=== PATIENT | female | born 1975 | race Caucasian/White ===

== ENCOUNTER 2024-01-01 13:25 | Outpatient (REF) | payer MEDICAID, SELFPAY ==
--- NOTE | ~2024-01-01 | MM_ITS ---
EXAMINATION: MM SCREENING DIGITAL BREAST TOMOSYNTHESIS, BILATERAL CLINICAL INFORMATION: Screening. Asymptomatic. COMPARISON: Mammography: This study is compared with prior exams dating back to 2019. TECHNIQUE: Digital breast tomosynthesis is performed in both the craniocaudal and mediolateral oblique views along with computer-aided detection (CAD). Synthesized 2D images are generated from the tomosynthesis. FINDINGS: There are scattered areas of fibroglandular density (ACR BI-RADS breast composition Category b). There are no significant masses, abnormal calcifications, or other abnormalities. Benign calcifications are present in each breast. MM/MM tomosynthesis screening BI IMPRESSION: No mammographic evidence of malignancy. ASSESSMENT: BI-RADS BI-RADS 2 - Benign Findings RECOMMENDATION: Routine annual mammography screening. 1 year F/U This examination should not preclude the clinical evaluation of a suspicious palpable abnormality. This patient's information was entered into a reminder system with a target due date for their next mammogram. Electronically signed by: Kayla Bales MD 01/28/2024 07:45 AM EDT
== END 2024-01-01 13:26 | disposition home or self-care (01) ==
LOC: HO.MAMMO 13:25
PROVIDERS: PCP Internal Medicine; Visit Provider Internal Medicine
DX: Z12.31 Encounter for screening mammogram for malignant neoplasm of breast (principal)
CPT/HCPCS: 77063; 77067

== ENCOUNTER → 2024-01-01 14:00 | Outpatient (BNV) | payer MEDICAID, SELFPAY | PROVIDERS: PCP Internal Medicine; Visit Provider Radiology Diagnostic Radiology | DX: Z12.31 Encounter for screening mammogram for malignant neoplasm of breast (principal) | CPT/HCPCS: 77063; 77067 ==

== ENCOUNTER 2024-01-09 08:20 | Outpatient (REF) | payer MEDICAID, SELFPAY ==
[2024-01-09 14:16] LABS: MANUAL DIFF FLAG NO
[2024-01-09 14:26] LABS: Basophils Absolute Auto 0.1 X10*3/uL (0.0-0.2); Basophils Percent Auto 0.7 % (0-2); Eosinophils Absolute Auto 0.2 X10*3/uL (0.0-0.4); Eosinophils Percent Auto 2.2 % (0-4); Hemoglobin 15.5 g/dl (12.0-16.0); Imm Gran Abs Auto 0.05 X10*3/uL (0.00-0.03); Imm Gran Pct Auto 0.5 % (0.0-0.4); Lymphocytes Absolute Auto 2.3 X10*3/uL (1.2-4.9); Lymphocytes Percent Auto 22.8 % (20-40); Mean Corpuscular HGB Conc 33.7 g/dl (31.0-35.0); Mean Corpuscular Volume 98.1 fL (80.0-98.0); Mean Platelet Volume 9.7 fL (9.4-12.3); Monocytes Absolute Auto 0.6 X10*3/uL (0.1-1.2); Monocytes Percent Auto 6.3 % (2-11); Neutrophils Absolute Auto 6.9 x10*3/uL (2.0-8.3); Neutrophils Percent Auto 67.5 % (45-73); Platelet Count 256 X10*3/uL (160-400); Red Blood Count 4.69 X10*6/uL (4.20-5.50); White Blood Count 10.2 X10*3/uL (4.8-10.8)
[2024-01-09 15:02] LABS: Alanine Aminotransferase 65 U/L (0-31); Albumin Level 4.3 g/dL (3.5-5.0); Alkaline Phosphatase 78 U/L (39-117); Anion Gap 14 (12-20); Aspartate Amino Transferase 25 U/L (5-31); Bilirubin Total 0.4 mg/dL (0.0-1.0); Blood Urea Nitrogen 13 mg/dL (9-16); Calcium 9.6 mg/dL (8.4-10.2); Carbon Dioxide 25 mmol/L (22-29); Chloride 104 mmol/L (96-108); Cholesterol 190 mg/dL (<200); Estimated Glomerular Filt Rate > 60; Glucose Random 133 mg/dL (60-115); HDL Cholesterol 30 mg/dL (>40); LDL Cholesterol Calculated 95 mg/dL (<100); Potassium 5.3 mmol/L (3.3-5.1); Sodium 138 mmol/L (135-145); Total Protein 7.2 g/dL (6.5-8.0); Triglycerides 328 mg/dL (<150)
[2024-01-09 15:06] LABS: Creatinine Urine 95.66 mg/dL; Microalbum/Creatinine Ratio Ur 10.4 ug/mg cr (<30)
[2024-01-09 15:22] LABS: TSH reflex Free T4 2.34 uIU/mL (0.32-4.0)
[2024-01-10 03:58] LABS: HIV AB/AG Nonreactive (Nonreactive); HIV Num 1 0.05 S/CO (0.00-0.99); ~HepC Num1 0.12 S/CO (0.00-0.79); ~Hepatitis C Antibody Nonreactive (Nonreactive)
== END 2024-01-09 08:21 | disposition home or self-care (01) ==
LOC: HO.CHCLDS 08:20
PROVIDERS: Visit Provider Internal Medicine
DX: E11.29 Type 2 diabetes mellitus with other diabetic kidney complication (principal); R80.9 Proteinuria, unspecified
CPT/HCPCS: 36415; 80053; 80061; 82043; 82570; 84443; 85025; 86803; 87389

== ENCOUNTER 2024-04-03 14:23 | Outpatient (REF) | payer MEDICAID, SELFPAY | END 2024-04-03 14:24 | disposition home or self-care (01) | LOC: HO.HMGCX 14:23 | PROVIDERS: PCP Internal Medicine; Visit Provider Internal Medicine | DX: M25.562 Pain in left knee (principal); G89.29 Other chronic pain | CPT/HCPCS: 73564 ==

== ENCOUNTER 2024-04-07 14:26 | Outpatient (REF) | payer MEDICAID, SELFPAY | END 2024-04-07 14:27 | disposition home or self-care (01) | LOC: HO.HHCLNP 14:26 | PROVIDERS: Visit Provider Family Medicine | DX: Z12.4 Encounter for screening for malignant neoplasm of cervix (principal) | CPT/HCPCS: 87624; 88175 ==

== ENCOUNTER 2024-04-29 14:16 | Outpatient (REF) | payer MEDICAID, SELFPAY ==
[2024-04-29 14:00] LABS: HPV 16,18/45 See PAP report
== END 2024-04-29 14:17 | disposition home or self-care (01) ==
LOC: HO.HHCLNP 14:16
PROVIDERS: Visit Provider Family Medicine
DX: Z13.89 Encounter for screening for other disorder (principal)
CPT/HCPCS: 87624

== ENCOUNTER 2024-07-27 14:21 | Outpatient (REF) | payer MEDICAID, SELFPAY ==
--- OUTSIDE RECORDS SUMMARY | 2024-07-27 17:07 | XMS_ITS | Encounter Summary ---
Author Organization [employer] Address [address] [facility] 7 [place] [address] Care Team Providers Care Ukrainian Folk Arts Instructor Name Role Phone Jordi Gallo Unavailable Elicia Powell MD Primary Care Provider [phone] Jovanny Mcduffie MD Primary Care Prov ider Encounter Details Date Type Department Care Team (Latest Contact Info) Description 01/26/2020 Abstract [facility] Dental, Provider, DDS Social History Tobacco Use Types Packs/Day Years Used Date Smoking Tobacco: Never Assessed Comments Unknown Sex and Gender Information Value Date Recorded Sex Assigned at Female 05/30/2022 1:58 PM EST Legal Sex Female 8:38 PM EST Gender Identity Female 04/06/2022 8:38 PM EST Sexual Orientation Straight 04/06/2022 8: 38 PM EST documented as of this encounter Plan of Treatment Upcoming Encounters Date Type Department Care Team (Late st Contact Info) Description 11/02/2024 12:30 PM EDT Office Visit [facility] [address] [place] [phone] Bonnie Naik [address] [place] [address] documented as of this encounter Visit Diagnoses Not on filedocumented in this encounter Care Teams Ukrainian Folk Arts Instructor Relationship Specialty Start Date End Date Elicia Powell MD [address] [place] [address] PCP - General Family Medicine 01/02/23 12/03/23 Jovanny Mcduffie MD [address] [place] [address] PCP - General Internal Medicine 12/09/23 Jordi Gallo LLD [address] [place] [address] Dentist Dental Narcotics Investigator 01/02/23 documented as of this encounter
--- OUTSIDE RECORDS SUMMARY | 2024-07-27 17:07 | XMS_ITS | Encounter Summary ---
Author Organization [employer] Address [address] [facility] [address] [place] [address] Care Team Providers Care Nurse'S Companion Name Role Phone Jordi Gallo LLJuice Unavailable Jovanny Mcduffie MD Primary Care Prov ider Encounter Details Date Type Department Care Team (Latest Contact Info) Description 07/27/2024 Travel Social History Tobacco Use Types Packs/Day Years Used Date Smoking Tobacco: Every Day Cigarettes 0.5 38.6 Started: 12/06/1985 Smokeless Tobacco: Never Alcohol Use Standard Drinks/Week Comments Never 0 (1 standard drink = 0.6 oz pur e alcohol) Housing Stability Answer Date Recorded What is your housing situation today? I have danielle stacia 12/25/[address] you li ve. Do you have problems with any of the following? None of the above 12/25/2023 Food Insecurity Answer Date Recorded Within the past 12 months, y ou worried that your food would run out before you got money to buy more: Never True 12/25/2023 Within the past 12 months,th e food you bought just didn't last and you didn't have enough money to get more: Never True Transportation Answer Date Recorded In the past 12 months, has l ack of transportation kept you from medical appts, meetings, work or from getting things needed for daily living? No 12/25/2023 Utilities Answer Date Recorded In the past 12 months, has t he electric, gas, oil or water company threatened to shut off services in your home? No 12/25/2023 Depression Answer Date Recorded Patient Health Questionnaire-2 Score 0 01/03/2024 Internet Access Answer Date Recorded Internet Access Q1 Yes 01/27/2024 Internet Access Q2 Not on file 01/27/2024 Comments Unknown Sex and Gender Information Value [...] PM EDT Office Visit [facility] [address] [place] [phone] Bonnie Naik [address] [place] [address] documented as of this encounter Visit Diagnoses Not on filedocumented in this encounter Care Teams Nurse'S Companion Relationship Specialty Start Date End Date Jovanny Mcduffie MD [address] [place] [address] PCP - General Internal Medicine 12/09/23 Jordi Gallo LLD [address] [place] [address] Dentist Dental Truant Officer 01/02/23 documented as of this encounter
--- OUTSIDE RECORDS SUMMARY | 2024-07-27 17:07 | XMS_ITS | Encounter Summary ---
Author Organization [employer] Address 75 [facility] 7 [place] [address] Care Team Providers Care Foot Miter Operator Name Role Phone Jordi Gallo Unavailable Jovanny Mcduffie MD Primary Care Prov ider Reason for Visit * Reason Onset Date Comments Medication Question 07/10/2024 Encounter Details Date Type Department Care Team ([facility] st Contact Info) Description 07/10/2024 Telephone [facility] MEDICINE [address] [place] [address] Jovanny Mcduffie MD [address] [place], [place] [phone] Medication Question Social History Tobacco Use Types Packs/Day Years Used Date Smoking Tobacco: Every Day Cigarettes 0.5 38.6 Started: 12/06/1985 Smokeless Tobacco: Never Alcohol Use Standard Drinks/Week Comments Never 0 (1 standard drink = 0.6 oz pur e alcohol) Housing Stability Answer Date Recorded What is your housing situation today? I have danielle palomo 12/25/[address] you li [...] PM EST documented as of this encounter Miscellaneous Notes * Telephone Encounter - Sangita Chang - 07/10/2024 9:03 AM EST Tc from pt requesting a call back to clarify if she will need blood work regarding zepbound and diabetes. [phone] documented in this encounter Plan of Treatment Upcoming Encounters Date Type Department Care Team (Late st Contact Info) Description 11/02/2024 12:30 PM EDT Office Visit [facility] [address] [place] [phone] Bonnie Naik [address] [place] [address] documented as of this encounter Visit Diagnoses Not on filedocumented in this encounter Care Teams Foot Miter Operator Relationship Specialty Start Date End Date Jovanny Mcduffie MD [address] [place] [address] PCP - General Internal Medicine 12/09/23 Jordi Gallo LLD [address] [place] [address] Dentist Dental Rural Mail Contractor 01/02/23 documented as of this encounter
--- OUTSIDE RECORDS SUMMARY | 2024-07-27 17:07 | XMS_ITS | Encounter Summary ---
Author Organization [employer] Address 75 [facility] 7 [place] [address] Care Team Providers Care Commercial Sewing Instructor Name Role Phone Jordi Gallo Unavailable Jovanny Mcduffie MD Primary Care Prov ider Reason for Visit * Reason Onset Date Comments Medication Question 07/17/2024 Encounter Details Date Type Department Care Team ([facility] st Contact Info) Description 07/17/2024 Telephone [facility] MED[facility]INE [address] [place] [address] Jovanny Mcduffie MD [address] [place], [place] [phone] Medication Question Social History Tobacco Use Types [...] encounter Miscellaneous Notes * Telephone Encounter - Edmund Martinez - 07/17/2024 8:49 AM EST Tc from pt requesting a call back to discuss medication Tirzepatide-Weight Management (Zepbound) 5 MG/0.5ML solution. Pt states would like to know if they ae going to Increase her Dose or if she is suppose to stay on the Same one. Contact pt at [phone] documented in this encounter Plan of Treatment Upcoming Encounters Date Type Department Care Team (Late st Contact Info) Description 11/02/2024 12:30 PM EDT Office Visit [facility] [address] [place] [phone] Bonnie Naik [address] [place] [address] documented as of this encounter Visit Diagnoses Not on filedocumented in this encounter Care Teams Commercial Sewing Instructor Relationship Specialty Start Date End Date Jovanny Mcduffie MD [address] [place] [address] PCP - General Internal Medicine 12/09/23 Jordi Gallo LLD [address] [place] [address] Dentist Dental Diesel Engine Mechanic 01/02/23 documented as of this encounter
--- OUTSIDE RECORDS SUMMARY | 2024-07-27 17:07 | XMS_ITS | Encounter Summary ---
Author Organization [employer] Address 75 [facility] 7 [place] [address] Care Team Providers Care Lead Burner Helper Name Role Phone Jordi Gallo Unavailable Elicia Powell MD Primary Care Provider [phone] Jovanny Mcduffie MD Primary Care Prov ider Encounter Details Date Type Department Care Team (Latest Contact Info) Description 09/21/2021 Abstract [facility] Dental, Provider, DDS Social [...] EDT Office Visit [facility] [address] [place] [phone] Bonnie Naik [address] [place] [address] documented as of this encounter Visit Diagnoses Not on filedocumented in this encounter Care Teams Lead Burner Helper Relationship Specialty Start Date End Date Elicia Powell MD [address] [place] [address] PCP - General Family Medicine 01/02/23 12/03/23 Jovanny Mcduffie MD [address] [place] [address] PCP - General Internal Medicine 12/09/23 Jordi Gallo LLD [address] [place] [address] Dentist Dental Electrolytic De Scaler 01/02/23 documented as of this encounter
--- OUTSIDE RECORDS SUMMARY | 2024-07-27 17:07 | XMS_ITS | Encounter Summary ---
Author Organization [employer] Address 75 [facility] 7 [place] [address] Care Team Providers Care Pasting Inspector Name Role Phone Jordi Gallo Unavailable Elicia Powell MD Primary Care Provider [phone] Jovanny Mcduffie MD Primary Care Prov ider Encounter Details Date Type Department Care Team (Latest Contact Info) Description 07/01/2018 Abstract [facility] Dental, Provider, DDS Social [...] EDT Office Visit [facility] [address] [place] [phone] Bonnie Naik [address] [place] [address] documented as of this encounter Visit Diagnoses Not on filedocumented in this encounter Care Teams Pasting Inspector Relationship Specialty Start Date End Date Elicia Powell MD [address] [place] [address] PCP - General Family Medicine 01/02/23 12/03/23 Jovanny Mcduffie MD [address] [place] [address] PCP - General Internal Medicine 12/09/23 Jordi Gallo LLD [address] [place] [address] Dentist Dental Costume Rental Clerk 01/02/23 documented as of this encounter
--- OUTSIDE RECORDS SUMMARY | 2024-07-27 17:07 | XMS_ITS | Encounter Summary ---
Author Organization [email or web address] Address 75 [facility] 7 [place] [address] Care Team Providers Care Carbon Lamp Cleaner Name Role Phone Jordi Gallo Unavailable Elicia Powell MD Primary Care Provider [phone] Jovanny Mcduffie MD Primary Care Prov ider Encounter Details Date Type Department Care Team (Latest Contact Info) Description 09/05/2020 Abstract [facility] Dental, Provider, DDS Social [...] EDT Office Visit [facility] [address] [place] [phone] Bonnie Naik [address] [place] [address] documented as of this encounter Visit Diagnoses Not on filedocumented in this encounter Care Teams Carbon Lamp Cleaner Relationship Specialty Start Date End Date Elicia Powell MD [address] [place] [address] PCP - General Family Medicine 01/02/23 12/03/23 Jovanny Mcduffie MD [address] [place] [address] PCP - General Internal Medicine 12/09/23 Jordi Gallo LLD [address] [place] [address] Dentist Dental Slicing Machine Operator 01/02/23 documented as of this encounter
--- OUTSIDE RECORDS SUMMARY | 2024-07-27 17:07 | XMS_ITS | Encounter Summary ---
Author Organization [employer] Address 75 [facility] 7 [place] [address] Care Team Providers Care Certified Credit Counselor Name Role Phone Jordi Gallo Unavailable Jovanny Mcduffie MD Primary Care Prov ider Reason for Visit * Reason Onset Date Comments Nurse Triage 07/27/2024 Encounter Details Date Type Department Care Team ([facility] st Contact Info) Description 07/27/2024 Telephone [facility] MEDICINE [address] [place] [address] Jovanny Mcduffie MD [address] [place], [place] [phone] Nurse Triage Social History Tobacco Use Types Packs/Day Years [...] encounter Miscellaneous Notes * Telephone Encounter - Rosalina Diaz RN - 07/27/2024 11:38 AM EST called pt to triage, spoke to pt. pt states several days duration of mid back pain, occasionally radiating into the right shoulder. pt also states mild burning when finishing urinating but denies fever, severe pain, strong odor, blood, or other associated symptoms. advised no available appt today or tomorrow and advised walk in center in the [facility], also declined. given TC appt with PCP to discuss and arrange for U/A as needed. advised home care: rest, fluids, monitor temperature, and call back ifworsening or new concerns. pt understands and agrees with plan. insurance verified. Multiple (2) protocols were used on this call. Disposition for Call: See in Office or Video Visit Today Protocol Used: Urinary Symptoms (Adult) Protocol-Based Disposition: See in Office or Video Visit Today Video visit offer not recorded Positive Triage Question: * Side (flank) or lower back pain present * All higher-acuity triage questions were negative Care Advice Discussed: * Reasons To Call Back - Fever occurs - Pain or burning with urination - Unable to urinate and bladder feels full - You become worse Protocol Used: Back Pain (Adult) Protocol-Based Disposition: See in Office or Video Visit within 3 Days Video visit offer not recorded Positive Triage Question: * Patient wants to be seen * All higher-acuity triage questions were negative Care Advice Discussed: * Reassurance and Education - Back Pain * Cold or Heat * Sleep * Continue Activity * Pain Medicines * Reasons To Call Back - Fever occurs - Numbness or weakness occurs - Loss of control of your bladder or bowel - Severe pain not better after taking pain medicines - Pain begins to shoot into the leg - Pain lasts over 2 weeks - Pain becomes worse - You become worse * Telephone Encounter - Dasha Alfred - 07/27/2024 10:25 AM EST Tc from pt returning call. * Telephone Encounter - Edmund Martinez - 07/27/2024 9:14 AM EST Symptoms: Urination Pain, Back Pain - Not From Injury Outcome: Schedule a same-day appointment or talk to a nurse or provider today Reason: Caller denied all higher acuity questions The caller accepted this outcome. Contact pt at [phone] documented in this encounter Plan of Treatment Upcoming Encounters Date Type Department Care Team ([facility] st Contact Info) Description 11/02/2024 12:30 PM EDT Office Visit [facility] [address] [place] [phone] Bonnie Naik [address] [place] [address] documented as of this encounter Visit Diagnoses Not on filedocumented in this encounter Care Teams Certified Credit Counselor Relationship Specialty Start Date End Date Jovanny Mcduffie MD [address] [place] [address] PCP - General Internal Medicine 12/09/23 Jordi Gallo LLD [address] [place] [address] Dentist Dental Statistical Reporting Analyst 01/02/23 documented as of this encounter
--- OUTSIDE RECORDS SUMMARY | 2024-07-27 17:07 | XMS_ITS | Clinical Summary ---
Author Organization [employer] Address [address] [facility] [place] [address] [place] [address] Care Team Providers Care Rn Occupational Health Name Role Phone Jordi Gallo LLD Unavailable Jovanny Mcduffie MD Primary Care Prov ider Allergies No known active allergies Medications ammonium lactate (Amlactin) 12 % cream APPLY TOPICALLY EVERY DAY TO THE FEET 3 Active aspirin 81 MG EC tablet Take 81 mg by mouth in the morning. Active latanoprost (Xalatan) 0.005 % ophthalmic solution INSTILL 1 DROP BOTH EYES EVERY EVENING 3 Active Blood Pressure kit 1 kit Once per day. 1 kit 4 Active FreeStyle lancets 1 each by Other route Once per day. 100 each 4 12/07/19 25 Active FREESTYLE LITE test strip Blood glucose monitoring, check glucose daily 100 each 4 12/07/19 25 Active Alcohol Swabs (Alcohol Pads) 70 % pads 1 Units Once per day. 100 each 4 Active lisinopril 10 MG tablet Take 1 tablet (10 mg) by mouth Once per day. 90 tablet 3 4 01/03/20 25 Active atorvastatin (Lipitor) 80 MG tablet Take 1 tablet (80 mg) by mouth Once per day. 90 tablet 3 4 03/23/20 25 Active Tirzepatide-Oli ght Management (Zepbound) 5 MG/0.5ML solution Inject 5 mg under the skin 1 (one) time per week. Do not start before May 27, 2024. 2 mL 3 5 Active Semaglutide-Oli ght Management (Wegovy) 0.5 MG/0.5ML solution auto-injector Inject 0.5 mg under the skin 1 (one) time per week. 3 mL 4 07/28/19 25 Discontinu ed(Therapy completed) Semaglutide-Oli ght Management (Wegovy) 1 MG/0.5ML solution auto-injector Inject 0.5 mL (1 mg) under the skin 1 (one) time per week. 2 mL 4 07/28/19 25 Discontinu ed(Therapy completed) Semaglutide-Oli ght Management (Wegovy) 1.7 MG/0.75ML solution auto-injector Inject 0.75 mL (1.7 mg) under the skin 1 (one) time per week. 2 mL 4 07/28/19 25 Discontinu ed(Therapy completed) Active Problems Problem Noted Date Diagnosed Date Cervical cancer screening 04/07/2024 Assessment & Plan (04/07/2024 11:21 AM EST): 49 y.o. here for cervical cancer screening. Will continue monitoring following ASCCP guidelines. Pt declined influenza and Covid vaccines today. Primary hypertension 01/16/2024 Assessment & Plan (05/18/2024 9:41 AM EST): Controlled, continue low sodium diet and exercise as tolerated, keep bp log, follow up in 3 months Assessment & Plan (03/23/2024 10:54 AM EDT): Controlled, continue lisinopril 10mg, keep low sodium diet and exercise as tolerated Assessment & Plan (01/29/2024 9:48 PM EDT): Controlled on lisinopril, no changes will be made, continue low sodium diet, keep bp log, follow up in 4 months Assessment & Plan (01/16/2024 11:26 PM EDT): Will start on lisinopril, encouraged low sodium diet and exercise as tolerated, keep bp log, follow up in 1 month Chronic pain of left knee 01/16/2024 Assessment & Plan (01/16/2024 11:27 PM EDT): Will send a order for xray to check for OA Encounter for screening mamm ogram for malignant neoplasm of breast 12/07/2023 Assessment & Plan (12/07/2023 10:39 AM EDT): Will send mammogram for screenbing Screening for colon cancer 12/07/2023 Assessment & Plan (12/07/2023 10:54 AM EDT): Will send cologuard, risk vs benefits discussed Encounter for medical examination to establish c are 12/07/2023 Assessment & Plan (12/07/2023 11:13 AM EDT): Last PCP follow up 6 months ago, in [facility] No er visit on the past year Only hospitalization was on 1992 for c section Pmhx: DM, microalbuminuria, hyperlipidemia, obesity, hydradenitis suppurativa Pshx: csection 1992 All: - Meds: glipizide 10mg daily, doxyxyxline 100mg daily, lisinopril 2.5mg, atorvastatin 40mg, asa 81mg A1 Will refer for mammogram, eye exam, send cologuard, schedule pap smear Type 2 diabetes mellitus with microalbuminuria 0 07/04/2023 Assessment & Plan (07/27/2024 1:45 PM EST): No reported episode of hypoglycemia, will order new blood work for guidance of therapy Assessment & Plan (05/18/2024 9:42 AM EST): On wegovy, no reported hypoglycemia, continue low carb/no sugar diet, exercise as tolerated, will increase wegovy dose, she will be changed to zepbound after May 27 Assessment & Plan (03/23/2024 10:54 AM EDT): Will increase wegovy to 0.5mg, she tolerated initial dose, told to discontinue glipizide to avoid hypoglycemia Assessment & Plan (01/29/2024 9:49 PM EDT): Patient has not started wegovy, pending aproval, continue glipizide, plan is to increase wegovy and discontinue glipizide and leave her on single therapy with wegovy Assessment & Plan (01/16/2024 11:23 PM EDT): Patient having fungal infection related to jardiance, will stop medication, continue glipizode and wegovy, follow up in 1 month Assessment & Plan (12/07/2023 10:57 AM EDT): Patient on glipizide, will add jardiance for renal protection, also will add wegovy for controlling her DM and also adressing her weight issue, plan is to be on jardiance/wegovy and stop glipizide Secondary female infertility 12/12/2020 Overview (04/07/2024): Last Assessment & Plan: Both Ana and her partner have had children with other people in the past but not each other. They have been together for almost 2 decades. She reports that her periods are starting to get a little funny and possible that she is entering perimenopause but if there is any remaining chance of with this partner she would like to seize it. She reports that a previous work-up for infertility was normal and that her partner is supposed to IVF but not to less invasive fertility treatments. I believe she would benefit from a hysterosalpingogram and perhaps judicious use of fertility boosting oral medications and I am referring her to obstetrics to pursue this. Hyperlipidemia 09/15/2018 Overview (12/07/2023): Last Assessment & Plan: Previously stable on a statin but needs monitoring. Assessment & Plan (01/29/2024 9:50 PM EDT): Ldl not at target, will increase atorvastatin to 80mg, follow up in 3-4 months Assessment & Plan (12/07/2023 10:58 AM EDT): On atorvastatin 40mg, ldl target <70, will follow up Smoker 09/15/2018 Hidradenitis suppurativa 10/23/2017 Overview (12/07/2023): Last Assessment & Plan: This likely represents a hidradenitis lesion. Is no evidence of infection. Pain is getting much better and at this point I really recommend any treatment. If she continues to have pain from the lesion, she could be referred to surgery for excision. Assessment & Plan (01/16/2024 11:24 PM EDT): Will refer to dermatology for evalaution and treatment Assessment & Plan (12/07/2023 10:57 AM EDT): On doxycycline, no changes, will reevaluate in office Obesity 06/05/2017 Resolved Problems Problem Noted Date Diagnosed Date Resolved Date Type 2 diabetes mellitus wit h diabetic neuropathy, without long-term current use of insulin 05/05/2019 04/07/2024 Overview (04/07/2024): Last Assessment & Plan: A1C has been well controlled recently so discontinuing Jardiance is probably fine but I would like an up to date A1C. Unfortunately for logistical reasons I didn't have an updated number available while we met so we agreed to communicate about this via portal. Her current insurance will not cover semaglutide at all as far as I can tell but we can certainly try again when she has new coverage. Discussed that she has now had two separate urines with mild microalbuminuria suggestive of mild diabetic kidney disease. GFR is happily normal. Recommend low dose PATRICE-I for renal protection. Reviewed R&B including but not limited to dry cough, angioedema, hyperkalemia. Reviewed lipid panel; LDL at goal, HDL too low - recommend exercise. TG also not at goal. Ana would like to address this with dietary changes. Handout provided. Encounters Date Type Department Care Team Description 07/27/2024 1:15 PM EST Telemedicine [facility] [address] [place] [address] Jovanny Mcduffie MD Type 2 diabetes mellitus with microalbuminuria (CMS/HCC) (Primary Dx); Dysuria 07/27/2024 Travel 07/27/2024 Telephone [facility] [address] [place] [phone] Jovanny Mcduffie MD Nurse Triage 07/17/2024 Telephone [facility] [address] [place] [address] Jovanny Mcduffie MD Medication Question 07/10/2024 Telephone [facility] [address] [place] [phone] Joavnny Mcduffie MD Medication Question 05/18/2024 9:30 AM EST Telemedicine [facility] [address] [place] [address] Jovanny Mcduffie MD Primary hypertension (Primary Dx); Type 2 diabetes mellitus with microalbuminuria (CMS/HCC) 05/18/2024 Travel 04/28/2024 10:30 AM EST Office Visit [address] [phone] Bonnie Naik Periodontal disease (Primary Dx) from Last 3 Months Immunizations Name Administration Dates Next Due Hep B, adult 12/26/2012,07/25/2012,06/19/2012 MMR 07/25/2012 Pneumococcal Conjugate PCV 20 05/01/2022 TD (adult), 2 Lf tetanus tox oid, preservative free, adsorbed 06/05/2021 Tdap 05/04/2010 Family History Medical History Relation Name Comments Alcohol abuse Father Diabetes Father Alcohol abuse Mother Relation Name Status Comments Father Mother Social History Tobacco Use Types Packs/Day Years Used Date Smoking Tobacco: Every Day Cigarettes 0.5 38.6 Started: 12/06/1985 Smokeless Tobacco: Never Tobacco Cessation:Ready to Q uit: No; Counseling Given: Not Answered Alcohol Use Standard Drinks/Week Comments Never 0 [...] Orientation Straight 04/06/2022 8: 38 PM EST Last Filed Vital Signs Vital Sign Reading Time Taken Comments Blood Pressure 127/87 05/18/2024 9:25 AM EST Pulse 74 04/28/2024 10:37 AM EST Temperature 36.8 ??C (98.3 ??F) 04/28/2024 10:[address] Respiratory Rate 20 04/07/2024 10:52 AM EST Oxygen Saturation 98% 04/07/2024 10:52 AM EST Inhaled Oxygen Concentration - - Weight 141 kg (311 lb 12.8 oz) 04/07/2024 10:52 AM EST Height 167.6 cm (5' 6 ) 04/07/2024 10:52 AM EST Body Mass Index 50.33 04/07/2024 10:52 AM EST Plan of Treatment Upcoming Encounters Date Type Department Care Team (Late st Contact Info) Description 11/02/2024 12:30 PM EDT Office Visit [facility] [address] [place] [phone] Bonnie Naik [address] [place] [phone] Health Maintenance Due Date Last Done Comments CT Colonography 1975 Colonoscopy 1975 FIT 1975 FOBT 1975 Sigmoidoscopy 1975 Family Planning (PISQ) 1990 Diabetes: Hemoglobin A1C 04/04/2024 024, 12/08/2020, 02/05/2020, Additional history exists Dental X-Ray: Bitewings 08/14/2024 08/14/19 24, 10/01/2022, 03/27/2022, Additional history exists Alcohol/Substance Use Screening 10/15/2024 10/16/2023 Dental Oral Exam 10/28/2024 04/28/2024, , 10/01/2022, Additional history exists Dental Prophylaxis 10/28/2024 04/28/2024, 0 10/16/2023, 04/11/2023, Additional history exists Influenza Vaccine (#1) 2024 Postp oned from 01/26/2024 (Patient Refused) SDOH Screening 12/24/2024 12/25/2023 Depression Screening 01/02/2025 01/03/2024, 01/03/20 24 Diabetes: Foot Exam 01/02/2025 01/03/2024, 01/03/2024, 01/03/2024, Additional history exists Lipid Panel 01/08/2025 01/09/2024 Zoster Vaccines (1 of 2) 2025 Dental X-Ray: Full Mouth 03/28/2025 022, 12/11/2017, 08/27/2014 COVID-19 Vaccine ( season) 2025 03/18/2021, 09/16/2020, 08/24/2020 Postponed from 01/26/2024 (Patient Refused) Tobacco Screening 04/07/2025 04/07/2024 Mammogram 12/31/2025 01/01/2024, 01/26, 07/28/2020, Additional history exists Eye Exam 01/14/2026 01/15/2024, 01/14/2024 Colorectal Cancer Screening 12/19/2026 FIT DNA/Cologuard 12/19/2026 12/20/2023 Cervical Cancer Screening 04/07/2029 HPV/Cotest 04/07/2029 Pap Smear 04/07/2029 04/07/2024 DTaP/Tdap/Td Vaccines (3 - Td or Tdap) 06/05/2031 06/05/2021, 05/04/2010 RSV Patients and Patients Aged 60 years or older (1 - 1-dose 75+ series) 2050 Hepatitis B Vaccines Completed 12/26/2012, 07/25/2012, 06/19/2012 Pneumococcal Vaccine: Pediatrics (0 to 5 Years) and At-Risk Patients (6 to 49) Years) Completed 05/01/2022 HIV Screening Completed 01/09/2024 Hepatitis C Screening Completed 01/09/2024 HIB Vaccines Aged Out No longer eligi ble based on patient's age to complete this topic HPV Vaccines Aged Out No longer eligi ble based on patient's age to complete this topic Hepatitis A Vaccines Aged Out No long er eligible based on patient's age to complete this topic IPV Vaccines Aged Out No longer eligi ble based on patient's age to complete this topic Meningococcal Vaccine Aged Out No [place] hilary eligible based on patient's age to complete this topic RSV under 20 months Aged Out No longe r eligible based on patient's age to complete this topic Rotavirus Vaccines Aged Out No longer eligible based on patient's age to complete this topic Procedures Procedure Name Priority Date/Time Associated Diagnosis Comments PERIODIC ORAL EVALUATION - ESTABLISHED PATIENT Routine 04/28/2024 10:30 AM EST CASE PRESENTATION, DETAILED AND EXTENSIVE TREATMENT PLANNING Routine 04/28/2024 10:30 AM EST PROPHYLAXIS - ADULT Routine 04/28/2024 1 0:30 AM EST PAP SMEAR Routine 04/07/2024 11:20 AM EST Cervical cancer screening AMB REFERRAL TO OPTOMETRY Routine 01/14/2024 Type 2 diabetes mellitus with diabetic microalbuminuria, without long-term current use of insulin (CMS/[facility]) HEPATITIS C AB W/REFL TO HCV RNA, QN, PCR Routine 01/09/2024 8:21 AM EDT Type 2 diabetes mellitus with microalbuminuria (CMS/HCC) HIV 1/2 ANTIGEN/ANTIBODY, FOURTH GENERATION W/RFL Routine 01/09/2024 8:21 AM EDT Type 2 diabetes mellitus with microalbuminuria (CMS/HCC) LIPID PANEL, STANDARD Routine 01/09/2024 12:00 AM EDT Type 2 diabetes mellitus with microalbuminuria (CMS/HCC) POCT GLYCATED HEMOGLOBIN, TOTAL Routine 01/03/2024 10:46 AM EDT Type 2 diabetes mellitus with microalbuminuria (CMS/HCC) BI MAMMOGRAM SCREENING TOMOSYNTHESIS BILATERAL Routine 01/01/2024 1:45 PM EDT Encounter for screening mammogram for malignant neoplasm of breast LAB COLOGUARD?? COLON CANCER SCREEN Routine 12/20/2023 9:40 AM EDT Screening for colon cancer BITEWINGS - 4 RADIOGRAPHIC IMAGES Routine 08/14/2023 12:45 PM EDT INTRAORAL - COMPLETE SERIES OF RADIOGRAPHIC IMAGES Routine 03/27/2022 12:00 AM EDT from Last 3 Months or Most Recently Relevant to Health Maintenance Results * Pap Smear (04/07/2024 11:20 AM EST) Swab Cervix uteri structure / Unknown 04/07/2024 11:20 AM EST 04/08/2024 11:00 AM EST [facility] - 05/01/2024 11:20 AM EST ----- ------- Name: Ana Armijo ?Age/Sex: 49/F ? : 1975 Unit#: [id number] ?? Attend Dr: Jailene Ding MD ?Re04/07/24 ?Status: DEP REF ? Location: HO.HHCLNP ? Disch: ? ----- ------- SPEC : [id number] ?RECD: 04/08/24 ? STATUS: ??SOUT ? REQ NUM: [id number] ? CONNOR: 04/07/24 ? SUBM DR: Jailene Ding MD ? ENTERED: ??04/08/24 ?SP TYPE: Pap Smr ?OTHR DR: ? ORDERED: ??Pap Smear ?Addendum Addendum ??1 ?Entered: 05/01/240 HPV High Risk: ??Negative HPV Genotyping 16: ??Negative HPV Genotyping 18: ??Negative Addendum Signed (signature on file) Demond Hylton MD 05/01/241119 ? ----- ------- ? Interpretation ?? Satisfactory for evaluation. ?? Negative for intraepithelial lesion or malignancy. ?Clinical Information LMP: Unknown date Previous PAP test: Unknown date, WNL ? Material Received ?? ThinPrep-Cervical ----- ------- Signed (signature on file) MORENITA Caldera (ASCP) 04/13/24 1016 ? (signature on file) Demond Hylton MD 05/01/241119 ? ----- ------- ? END OF REPORT ? Jailene Ding MD LAB CYTOLOGY ORDERABLES Final Result Performing Organization Address [facility] de Phone Number [facility] [address] [place] [phone] * Referral to Optometry (01/14/2024) Jovanny Worthy MD OUTPATIENT REFERRA L ORDERABLES Final Result * Hepatitis C Antibody with Reflex to HCV, RNA, Quantitative, Real-Time PCR (01/09/2024 8:21 AM EDT) Hepatitis C Antibody Nonreactive Nonreactive [facility] Comment:Antibodies to HCV no t detected; does not exclude early acuteHCV infection. Blood Venous blood specimen / Unknown 01/09/2024 8:21 AM EDT 01/09/2024 2:04 PM EDT Jovanny Worthy MD LAB BLOOD ORDERABL ES Final Result Performing Organization Address [facility] de Phone Number [facility] [address] [place] [phone] * HIV-1/2 Antigen and Antibodies, Fourth Generation, with Reflexes (01/09/2024 8:21 AM EDT) HIV AB/AG Nonreactive Nonreactive [facility] Comment:HIV-1 p24 Ag and/or HIV-1/HIV-2 Ab not detected.A test result that is nonreactive does not exclude thepossibility of exposure to or infection with HIV-1 and/orHIV-2. Nonreactive results in this assay for individualswith prior exposure to HIV-1 and/or HIV-2 may be due toantigen and antibody levels that are below the limit ofdetection of this assay.The MOVL HIV Ag/Ab Combo assay result andsupplemental assay results should be interpreted inconjunction with the patient's clinical presentation,history and other laboratory results. If the results areinconsistent with clinical evidence, additional testing issuggested to confirm the result. Blood Venous blood specimen / Unknown 01/09/2024 8:21 AM EDT 01/09/2024 2:04 PM EDT us Jovanny Worthy MD LAB BLOOD ORDERABL ES Final Result Performing Organization Address [facility] Co de Phone Number [facility] [address] [place] [address] [phone] * (ABNORMAL) Lipid Panel, Standard (01/09/2024 12:00 AM EDT) Triglycerides 328(H) <150 mg/dL [facility] Comment:Desirable Triglyceri de: less than 150 mg/dLBorderline High Triglyceride 150-199 mg/dLHigh Triglyceride: 200-499 mg/dLVery High Triglyceride: greater than or equal to 5OO mg/dL Cholesterol 190 <200 mg/dL [facility] Comment:Desirable Cholestero l: less than 200 mg/dLBorderline High Cholesterol: 200-239 mg/dLHigh Cholesterol: greater than 239 mg/dL LDL Cholesterol Calculated 95 <100 mg/dL [facility] Comment:Desirable LDL: less than 100 mg/dLNear Optimal/Above Optimal LDL: 110- 129 mg/dLBorderline High LDL: 130-159 mg/dLHigh LDL: 160-189 mg/dLVery High LDL: greater than or equal to 190 mg/dL HDL Cholesterol 30(L) >40 mg/dL [facility] Comment:Desirable HDL: great er than 40 mg/dL Note: This HDL assay may give artificially low results in patients with liver disease. Blood Venous blood specimen / Unknown 01/09/2024 01/09/2024 us Jovanny Worthy MD LAB BLOOD ORDERABL ES Final Result Performing Organization Address City/[facility]/ZIP Co de Phone Number [facility] [address] [place] [phone] * (ABNORMAL) POCT HGB A1C (01/03/2024 10:46 AM EDT) Hemoglobin A1C 6.5(A) 4.0 - 6.0 % QC Media Lot # [id number] Lot# Expiration Date [id number] Blood 01/03/2024 10:4 6 AM EDT Jovanny Worthy MD POINT OF CARE TEST ENTER/EDIT ORDERABLES Final Result * BI Mammogram Screening Tomosynthesis Bilateral (01/01/2024 1:45 PM EDT) Anatomical Region Laterality Modality Breast Bilateral Mammography 01/01/2024 1:45 PM EDT Narrative 01/28/2024 7:48 AM EDT ? [facility] ? [address] ?[place] [address] ? Mammography Report ? Signed ? Patient: Ana Armijo ?MR#: [id number] ?? 9 ? : 1975 ?Acct:[id number] ? Age/Sex: 48 / F ?ADM Date: 01/01/24 ? Loc: HO.MAMMO ? Attending Dr: Jovanny Worthy MD ? Ordering Physician: Jovanny Mcduffie MD ?Res ?? ults: 2Benign Findings ? Date of Service: 08/07/24 ?Follow Up: 1 Year From Orig ?? inal Mammogram ? Procedure(s): MM tomosynthesis screening BI ?? Accession Number(s): [id number] ? cc: Jovanny Mcduffie MD ? EXAMINATION: ?? MM SCREENING DIGITAL BREAST TOMOSYNTHESIS, BILATERAL ? CLINICAL INFORMATION: ? Screening. Asymptomatic. ? COMPARISON: ?? Mammography: This study is compared with prior exams dating back to ? 2019. ? TECHNIQUE: ?? Digital breast tomosynthesis is performed in both the craniocaudal and ?? mediolateral oblique views along with computer-aided detection (CAD). ? Synthesized 2D images are generated from the tomosynthesis. ? FINDINGS: ?? There are scattered areas of fibroglandular density (ACR BI-RADS breast ?? composition Category b). ? There are no significant masses, abnormal calcifications, or other ?? abnormalities. ?? Benign calcifications are present in each breast. ? MM/MM tomosynthesis screening BI ?? IMPRESSION: ?? No mammographic evidence of malignancy. ? ASSESSMENT: ? BI-RADS BI-RADS 2 - Benign Findings ? RECOMMENDATION: ?? Routine annual mammography screening. ? 1 year F/U ? This examination should not preclude the clinical evaluation of a ?? suspicious palpable abnormality. ? This patient's information was entered into a reminder system with a ?? target due date for their next mammogram. ? Electronically signed by: ??Kayla Bales MD ??01/28/2024 07:45 AM EDT RP ? Dictated By: ?Kayla Bales MD ? Signed By: ?<Electronically signed by Kayla Bales MD in OV> ? 01/28/24 0745 ? DD/ 1345 ? TD/TT: 01/01/24 1400 ? Gluing Machine Operator: ? Procedure Note Margot, Kristin - 01/28/2024 [facility] [address] [place] [address] Mammography Report Signed Patient: Keena Armijo#: [id number] 9 : 1975Acct:[id number] Age/Sex: 48 / FADM Date: 01/01/24 Loc: HO.MAMMO Attending Dr: Jovanny Worthy MD Ordering Physician: Jovanny Mcduffie ults: 2Benign Findings Date of Service: 01/01/24Follow Up: 1 Year From Orig ina Mammogram Procedure(s): MM tomosynthesis screening BI Accession Number(s): [id number] cc: Jovanny Mcduffie MD EXAMINATION: MM SCREENING DIGITAL BREAST TOMOSYNTHESIS, BILATERAL CLINICAL INFORMATION: Screening. Asymptomatic. COMPARISON: Mammography: This study is compared with prior exams dating back to 2019. TECHNIQUE: Digital breast tomosynthesis is performed in both the craniocaudal and mediolateral oblique views along with computer-aided detection (CAD). Synthesized 2D images are generated from the tomosynthesis. FINDINGS: There are scattered areas of fibroglandular density (ACR BI-RADS breast composition Category b). There are no significant masses, abnormal calcifications, or other abnormalities. Benign calcifications are present in each breast. MM/MM tomosynthesis screening BI IMPRESSION: No mammographic evidence of malignancy. ASSESSMENT: BI-RADS BI-RADS 2 - Benign Findings RECOMMENDATION: Routine annual mammography screening. 1 year F/U This examination should not preclude the clinical evaluation of a suspicious palpable abnormality. This patient's information was entered into a reminder system with a target due date for their next mammogram. Electronically signed by: Kayla Bales MD 01/28/2024 07:45 AM EDT Dictated By: Kayla Bales MD Signed By: <Electronically signed by Kayla Bales MD in OV> 01/28/24 0745 DD/ 1345 TD/TT: 01/01/24 1400 Gluing Machine Operator: us Jovanny Worthy MD IMG BI PROCEDURES Final Result * Cologuard?? colon cancer screening (12/20/2023 9:40 AM EDT) Cologuard Result Negative Negative 12/28/19 3:48 AM EDT [employer] (CLIA #:[id number]) Comment: NEGATIVE TEST RESULT. A negative Cologuard result indicates a low likelihood that a colorectal cancer (CRC) or advanced adenoma (adenomatous polyps with more advanced pre-malignant features) ??is present. The chance that a person with a negative Cologuard test has a colorectal cancer is less than 1 in 1500 (negative predictive value >99.9%) or has an ??advanced adenoma is less than ??5.3% (negative predictive value 94.7%). These data are based on a prospective cross-sectional study of 10,000 individuals at average risk for colorectal cancer who were screened with both Cologuard and colonoscopy. (Pavan Stratton et al, N Engl J Med 2014;370(14):1286- 1297) The normal value (reference range) for this assay is negative. COLOGUARD RE-SCREENING RECOMMENDATION: Periodic colorectal cancer screening is an important part of preventive healthcare for asymptomatic individuals at average risk for colorectal cancer. ??Following a negative Cologuard result, the [employer] and [place]. Multi-Society Task Force screening guidelines recommend a Cologuard re-screening interval of 3 years. References: [place] [employer] Guideline for Colorectal Cancer Screening: https://www.cancer.org/cancer/pgjew-kpaaum-wkrbjw/txomcvuox-peghxvlzl-lohybco/ac s-rec ommendations.html.; Jase LOPEZ, Sridhar CR, Tom MaradiagaK, Colorectal Cancer Screening: Recommendations for Physicians and Patients from the U.S. Multi-Society Task Force on Colorectal Cancer Screening , Am J Gastroenterology 2017; 112:8507-4286. TEST DESCRIPTION: Composite algorithmic analysis of stool DNA-biomarkers with hemoglobin immunoassay. ?? Quantitative values of individual biomarkers are not reportable and are not associated with individual biomarker result reference ranges. Cologuard is intended for colorectal cancer screening of adults of either sex, 45 years or older, who are at average-risk for colorectal cancer (CRC). Cologuard has been approved for use by the U.S. FDA. The performance of Cologuard was established in a cross sectional study of average-risk adults aged 50-84. Cologuard performance in patients ages 45 to 49 years was estimated by sub-group analysis of near-age groups. Colonoscopies performed for a positive result may find as the most clinically significant lesion: colorectal cancer [4.0%], advanced adenoma (including sessile serrated polyps greater than or equal to 1cm diameter) [20%] or non- advanced adenoma [31%]; or no colorectal neoplasia [45%]. These estimates are derived from a prospective cross-sectional screening study of 10,000 individuals at average risk for colorectal cancer who were screened with both Cologuard and colonoscopy. (Pavan Robison. et al, N Engl J Med 2014;370(14):5289-1665.) Cologuard may produce a false negative or false positive result (no colorectal cancer or precancerous polyp present at colonoscopy follow up). A negative Cologuard test result does not guarantee the absence of CRC or advanced adenoma (pre-cancer). The current Cologuard screening interval is every 3 years. ([place] [employer] and U.S. Multi-Society Task Force). Cologuard performance data in a 10,000 patient pivotal study using colonoscopy as the reference method can be accessed at the following location: www.[employer]/results. Additional description of the Cologuard test process, warnings and precautions can be found at www.cologuard.com. Stool specimen (specimen) 12/20/2023 9:40 AM EDT 12/23/2023 11:04 AM EDT Jovanny Worthy MD LAB MOLECULAR DIAG NOSTICS ORDERABLES Final Result [facility] [employer] (CLIA #:[id number]) [address] [place] [address], from Last 3 Months or Most Recently Relevant to Health Maintenance Insurance Member Subscriber Plan / Payer (Ef fective 2023-Present) Name:Ana Armijo Relation to Subscriber:Self Name:Ana Arimjo Payer ID:Not on file Group ID:Not on file Type:Medicaid Address: [address] DENTAL-[facility] MEDICAID STAND ADULT DENTAL - HSN FULL (MEDICAID) Care Teams Rn Occupational Health Relationship Specialty Start Date End Date Jovanny Mcduffie MD [address] [place] [phone] PCP - General Internal Medicine 12/09/23 Jordi Gallo LLD [address] [place] [phone] Dentist Dental Hand Packer 01/02/23
--- OUTSIDE RECORDS SUMMARY | 2024-07-27 17:07 | XMS_ITS | Encounter Summary ---
Author Organization [employer] Address [address] [facility] 7 [place] [address] Care Team Providers Care Evp General Counsel Name Role Phone Jordi Gallo LLJuice Unavailable Jovanny Mcduffie MD Primary Care Prov ider Encounter Details Date Type Department Care Team (Latest Contact Info) Description 07/27/2024 1:15 PM EST Telemedicine [facility] CHC MED & PEDS [address] [place] [address] Jovanny Mcduffie MD [address] [place] [address] Type 2 diabetes mellitus with microalbuminuria (CMS/HCC) (Primary Dx); Dysuria Social History Tobacco Use Types Packs/Day Years [...] PM EST documented as of this encounter Progress Notes * Jovanny Worthy MD - 07/27/2024 1:15 PM EST Subjective Patient ID: Ana Armijo is a 49 y.o. female who presents for No chief complaint on file.. Difficulty Urinating This is a new problem. The current episode started 1 to 4 weeks ago. The pain is mild. There has been no fever. Pertinent negatives include no frequency, hematuria, nausea, urgency or vomiting. Review of Systems Gastrointestinal: Negative for nausea and vomiting. Genitourinary: Positive for dysuria. Negative for frequency, hematuria and urgency. Objective Physical Exam Neurological: General: No focal deficit present. Mental Status: She is oriented to person, place, and time. Psychiatric: Mood and Affect: Mood normal. Behavior: Behavior normal. Assessment/Plan Problem List Items Addressed This Visit Type 2 diabetes mellitus with microalbuminuria ([facility]) - Primary No reported episode of hypoglycemia, will order new blood work for guidance of therapy Relevant Orders Comprehensive Metabolic Panel Lipid Panel, Standard Hemoglobin A1c Other Visit Diagnoses Dysuria Patient denied fever, chills, suprapubic pain, frequency, will order u/a to evaluate for uti. Relevant Orders Urinalysis, Complete, with Reflex to Culture documented in this encounter Miscellaneous Notes * Assessment & Plan Note - Jovanny Worthy MD - 07/27/2024 1:45 PM ESTAssociated Problem(s): Type 2 diabetes mellitus with microalbuminuria (CMS/HCC) No reported episode of hypoglycemia, will order new blood work for guidance of therapy documented in this encounter Plan of Treatment Upcoming Encounters Date Type Department Care Team (Late st Contact Info) Description 11/02/2024 12:30 PM EDT Office Visit [facility]ENT[facility] [address] [place] [phone] Bonnie Naik [address] [place] [address] Scheduled Orders Name Type Priority Associated Diagnoses Orde r Schedule Urinalysis, Complete, with Reflex to Culture Lab Routine Dysuria Expected: 07/27/2024 (Approximate), Expires: 07/27/2025 Comprehensive Metabolic Panel Lab Routine Type 2 diabetes mellitus with microalbuminuria (CMS/HCC) Expected: 07/27/2024 (Approximate), Expires: 07/27/2025 Lipid Panel, Standard Lab Routine Type 2 diabetes mellitus with microalbuminuria (CMS/HCC) Expected: 07/27/2024 (Approximate), Expires: 07/27/2025 Hemoglobin A1c Lab Routine Type 2 diabetes mellitus with microalbuminuria (CMS/HCC) Expected: 07/27/2024 (Approximate), Expires: 07/27/2025 documented as of this encounter Visit Diagnoses Diagnosis Type 2 diabetes mellitus with microalbuminuria (CMS/HCC)- Primary Dysuria documented in this encounter Care Teams Evp General Counsel Relationship Specialty Start Date End Date Jovanny Mcduffie MD [address] [place] [phone] PCP - General Internal Medicine 12/09/23 Jordi Gallo LLD [address] [place] [phone] Dentist Dental Public Policy Mediator 01/02/23 documented as of this encounter
--- OUTSIDE RECORDS SUMMARY | 2024-07-27 17:07 | XMS_ITS | Encounter Summary ---
Author Organization [employer] Address [address] [facility] 7 [place] [address] Care Team Providers Care Wraparound Facilitator Name Role Phone Jordi Gallo Unavailable Jovanny Mcduffie MD Primary Care Prov ider Reason for Visit * Reason Onset Date Comments Nurse Triage 12/20/2023 Med Refill 12/20/2023 Encounter Details Date Type Department Care Team ([facility] st Contact Info) Description 12/20/2023 Telephone [facility] MEDICINE [address] [place] [address] Jovanny Mcduffie MD [address] [place] [address] Nurse Triage; Med Refill Social History Tobacco Use Types Packs/Day Years Used Date Smoking Tobacco: Every Day Cigarettes 0.5 38.6 Started: 12/06/1985 Smokeless Tobacco: Never Alcohol Use Standard Drinks/Week Comments Never 0 (1 standard drink = 0.6 oz pur e alcohol) Comments Unknown Sex and Gender Information Value Date Recorded Sex Assigned at Female 05/30/2022 1:58 PM EST Legal Sex Female 8:38 PM EST Gender Identity Female 04/06/2022 8:38 PM EST Sexual Orientation Straight 04/06/2022 8: 38 PM EST documented as of this encounter Miscellaneous Notes * Telephone Encounter - María White RN - 12/20/2023 11:20 AM EDT Call returned to Ana Aleksander to triage below. Reports having vaginal irritation on inner vaginal . No discharge. Per pt started 4 days ago. Pt has not used any OTC yeast infection medication. Pt has not used any feminine hygiene products or douching. Per pt believes its related to jardiance as had this issue in the past. Pt offered WIC. Pt would prefer to just have diflucan sent in as very similar to previous yeast infections. Pt advised will forward to judd to review note and request fro Rx diflucan with a covering provider as PCP out of office. Reviewed below genital hygiene and available OTC yeast medication that can try. Protocol Used: Vaginal Symptoms (Adult) Protocol-Based Disposition: Home Care Override (Final) Disposition: Discuss with PCP and Callback by Nurse Today Override Reason: Prescription issue Positive Triage Question: * Symptoms of a yeast infection (i.e., itchy, white discharge, not bad smelling) and feels like prior vaginal yeast infections * All higher-acuity triage questions were negative Care Advice Discussed: * Antifungal Medicine for Yeast Infection * Genital Hygiene * Reasons To Call Back - Vaginal discharge becomes yellow or green - You become worse * Telephone Encounter - Braden Caputo - 12/20/2023 11:19 AM EDT Symptom: Vaginal Symptoms - Not Bleeding Outcome: Schedule an appointment to be seen within 24 hours Reason: Caller denied all higher acuity questions The caller accepted this outcome documented in this encounter Plan of Treatment Upcoming Encounters Date Type Department Care Team (Late st Contact Info) Description 11/02/2024 12:30 PM EDT Office Visit [facility] GR DENT[facility] [address] [place] [phone] Bonnie Naik [address] [place] [address] documented as of this encounter Visit Diagnoses Not on filedocumented in this encounter Care Teams Wraparound Facilitator Relationship Specialty Start Date End Date Jovanny Mcduffie MD [address] [place] [address] PCP - General Internal Medicine 12/09/23 Jordi Gallo LLD [address] [place] [phone] Dentist Dental Senior Compensation Consultant 01/02/23 documented as of this encounter
[2024-07-27 17:50] LABS: Appearance Urine Cloudy; Color Urine Yellow; Glucose Urine UA Negative (Negative); Leukocyte Esterase Urine Small (1+) (Negative); Nitrite Urine Negative (Negative); PH 7.5 (5.0-9.0); UMIC TRIGGER UACC YES; Urine Blood Negative (Negative); Urine Ketones Negative (Negative); Urine Protein Negative (Neg-Trace)
[2024-07-27 18:12] LABS: Bacteria Urine 2+ (None Seen); Hyaline Casts Urine 0-2 /LPF (0-2); UACC Culture Trigger YES; WBC Urine 21-50 /HPF (0-5)
[2024-07-27 18:13] LABS: RBC Urine 0-2 /HPF (0-2)
[2024-07-27 18:15] LABS: Alanine Aminotransferase 41 U/L (0-31); Albumin Level 4.4 g/dL (3.5-5.0); Alkaline Phosphatase 79 U/L (39-117); Anion Gap 15 (12-20); Aspartate Amino Transferase 35 U/L (5-31); Bilirubin Total 0.5 mg/dL (0.0-1.0); Blood Urea Nitrogen 13 mg/dL (9-16); Calcium 9.5 mg/dL (8.4-10.2); Carbon Dioxide 25 mmol/L (22-29); Chloride 102 mmol/L (96-108); Cholesterol 123 mg/dL (<200); Estimated Glomerular Filt Rate > 60; Glucose Random 90 mg/dL (60-115); HDL Cholesterol 24 mg/dL (>40); LDL Cholesterol Calculated 65 mg/dL (<100); Potassium 4.4 mmol/L (3.3-5.1); Sodium 138 mmol/L (135-145); Total Protein 7.6 g/dL (6.5-8.0); Triglycerides 170 mg/dL (<150)
[2024-07-28 07:23] LABS: Estimated Average Glucose 120 mg/dL; Hemoglobin A1C 148.3925 umol/L; Hemoglobin A1c % 5.8 % (<6.0); Total Hemoglobin (HGBA1C) 3697.1129 umol/L
== END 2024-07-27 14:22 | disposition home or self-care (01) ==
LOC: HO.CHCLDS 14:21
PROVIDERS: Visit Provider Internal Medicine
DX: E11.29 Type 2 diabetes mellitus with other diabetic kidney complication (principal); R80.9 Proteinuria, unspecified; R30.0 Dysuria
CPT/HCPCS: 36415; 80053; 80061; 81001; 83036; 87086; 87088; 87186

== ENCOUNTER → 2025-01-05 08:10 | Outpatient (REF) | payer MEDICAID, SELFPAY ==
--- NOTE | ~2025-01-05 | NM_ITS ---
EXERCISE MYOCARDIAL PERFUSION STUDY INDICATION: Chest pain TECHNIQUE: The patient was brought in for an exercise perfusion study on 01/05/2025. Patient performed exercise as per Shravan protocol and was injected 45 mCi of sestamibi once target heart rate was achieved. Images were obtained using the SPECT gamma camera interlaced with the gating device. Images were obtained in supine position. Resting perfusion study was performed on 01/07/2025. Patient was administered 45 mCi of sestamibi intravenously at rest. Images were then obtained in supine position. Total DLP 124 mGy-cm. Images were processed with the software and compared side to side in short axis, horizontal long axis and vertical long axis views. FINDINGS: Raw aquisition reviewed. The stress perfusion study showed decreased tracer uptake along the inferior wall, mostly towards the apical portion. There is improvement with CT attenuation correction suggestive of diaphragmatic attenuation artifact. The gated study shows normal LV systolic function with calculated LVEF of 64%. LV cavity is normal in size. The gated study shows normal wall thickening and contraction of segments. Resting study shows no significant perfusion abnormality. Gating at rest reveals normal wall motion with ejection fraction at 56%. The findings are consistent with reversible inferoapical defect probably from diaphragmatic attenuation artifact. NM/NM cardiolite stress test IMPRESSION: 1. Myocardial perfusion imaging study shows no clear evidence of ischemia or infarction. Probably normal myocardial perfusion. 2. Gated LVEF is 64% during stress and 56% during rest. 3. Transient ischemic dilatation not present. EKG component of the test reported separately. Electronically signed by: Ramos Banuelos MD 01/07/2025 03:09 PM EDT
--- NOTE | 2025-01-05 08:12 | CA_ITS ---
Acquisition Time: 2025-01-05 08:25:05 Total Exercise Time: 00:05:00 Test Indications: CP Medications: SEE H&P Protocol: KEENAN Max HR: 150 BPM 87% of Pred: 171 BPM Max BP: 170/78 mmHG Max Work Load: 4.6 METS Exercise stress test with exercise 5 mins of Keenan Protocol held at Stage 1, achieving 87% MPHR, with reports of SOB and knee pain, no chest pain, with isolated PVCs, with normotensive response to exercise. Without any EKG changes meeting criteria for ischemia. In recovery, pt's breathing returned to baseline. Nuclear images pending. Test reviewed with Dr. Riddle. Referred By: Jovanny Worthy Electronically Signed By: Kaiden Brewer
--- OUTSIDE RECORDS SUMMARY | 2025-01-05 08:14 | XMS_ITS | Encounter Summary ---
Author Organization [employer] Address [address] [place] [address] Care Team Providers Care Coding Clerk Name Role Phone Jordi Gallo LLJuice Unavailable Jovanny Mcduffie MD Primary Care Prov ider Encounter Details Date Type Department Care Team (Late st Contact Info) Description 09/22/2024 Orders Only [facility] CHC MED & PEDS [address] [place], [place] [phone] Calli Garcia Social History Tobacco Use Types Packs/Day Years Used Date Smoking Tobacco: Every Day Cigarettes 0.5 39.1 Started: [birth year]/06/1985 Smokeless Tobacco: Never Alcohol Use [...] Access Q2 Not on file 01/27/2024 Comments No Sex and Gender Information Value Date Recorded Sex Assigned at Female 05/30/2022 1:58 PM EST Legal Sex Female 8:38 PM EST Gender Identity Female 04/06/2022 8:38 PM EST Sexual Orientation Straight 04/06/2022 8: 38 PM EST documented as of this encounter Plan of Treatment Upcoming Encounters Date Type Department Care Team (Late st Contact Info) Description 01/05/2025 1:00 PM EDT Telemedicine [facility] MED & PEDS [address] [place] [address] Jovanny Mcduffie MD [address] [place] [address] 05/10/2025 12:45 PM EST Office Visit [facility] [address] [place] [phone] Bonnie Naik [address] [place] [address] documented as of this encounter Procedures Procedure Name Priority Date/Time Associated Diagnosis Comments HPV MRNA E6/E7 REFLEX TO HPV 16, 18/45 Routine 04/07/2024 12:00 AM EST documented in this encounter Results * HPV mRNA E6/E7 w/Reflex to HPV Genotypes 16, 18/45 (04/07/2024 12:00 AM EST) us Historical Provider LAB CYTOLOGY ORDERABLES F inal Result [facility] [address] [place] [address] [phone] documented in this encounter Visit Diagnoses Not on filedocumented in this encounter Care Teams Coding Clerk Relationship Specialty Start Date End Date Jovanny Mcduffie MD [address] [place] [address] PCP - General Internal Medicine 12/09/23 Jordi Gallo LLD [address] [place] [phone] Dentist Dental Geographic Information System Surveyor 01/02/23 documented as of this encounter
== END ==
LOC: HO.CARD 08:10
PROVIDERS: PCP Internal Medicine; Visit Provider Internal Medicine
DX: R07.9 Chest pain, unspecified (principal)
CPT/HCPCS: 78452; 93017; A9500

== ENCOUNTER → 2025-01-05 08:12 | Outpatient (BNV) | payer MEDICAID, SELFPAY | PROVIDERS: PCP Internal Medicine | DX: R06.02 Shortness of breath (principal); I49.3 Ventricular premature depolarization | CPT/HCPCS: 78452; 93016; 93018 ==

== ENCOUNTER 2025-01-22 08:24 | Outpatient (AMB) | payer MEDICAID, SELFPAY ==
--- NOTE | 2025-01-22 08:45 | MHC.OFFVIS ---
Vital Signs 01/22/25 09:00 Height 5 ft 6 in Weight 300 lb BMI 48.4 Handedness Right Intake Visit Reasons: New Pt - left knee pain Intake Note: Ana is a 49 year old female who presents today as a new patient for a evaluation of her left knee pain. Hx of Patient reports ongoing pain for about 2 year and then her right knee is starting to get bad as well. She is expressing that her right knee is getting worse than the left at the moment. Her pain is on the medail aspect of the knee and it moves to the back of the left knee. She was given ibuprofen 800 MG tablets and prednisone 20 MG to help with her pain and swelling. Which she noticed her pain has gotten mild relief with ibuprofen and she has gotten relief with the prednisone. Allergies No Known Allergies Allergy (Verified 01/22/25 08:56) HPI HPI New Pt - left knee pain: Details: Ms. Armijo is a 49-year-old female who presents to the office today for evaluation of bilateral knee pain. She reports that she has had knee pain for quite some time. Roughly 10 years ago she reports that she had cortisone injections in bilateral knees which did not offer her much relief. Pain has begun to be more severe over the past 2 years. The severity alternates between the right and left knee depending on activity. At the current moment her right knee is bothering her more than her left. She has tried ibuprofen 800 mg as well as prednisone to help alleviate pain and swelling with mild relief. She seems to have gotten more relief with steroid. 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 Tenderness to palpation along the medial or lateral joint lines. Full knee extension and flexion. NVI. Psych Appearance: grossly normal Mental Status: mental status grossly normal Attitude: cooperative Office Procedures AMB Joint Injection/Aspiration Joint Injection/Aspiration Primary Site: right knee Secondary Site: left knee Prep: site was prepped using aseptic technique, ethochloride spray was applied and injection warnings given Injected: with 3 mL of (2% plain lidocaine), 0.25% bupivacaine, in the joint and decadron Approach Used: anterolateral Procedure: The patient tolerated the procedure well, but had some pain with the injection and there was some relief with the local anesthesia Coding 78190 - Bilateral Large Joint Procedure code (CPT) selection complete Assessment & Plan Assessment & Plan (1) Osteoarthritis of knees, bilateral: Code(s): M17.0 - Bilateral primary osteoarthritis of knee Category: Medical Plan Ms. Armijo is a 49-year-old female who presents to the office today for evaluation of bilateral knee pain. She reports that she has had knee pain for quite some time. Roughly 10 years ago she reports that she had cortisone injections in bilateral knees which did not offer her much relief. Pain has begun to be more severe over the past 2 years. The severity alternates between the right and left knee depending on activity. At the current moment her right knee is bothering her more than her left. She has tried ibuprofen 800 mg as well as prednisone to help alleviate pain and swelling with mild relief. She seems to have gotten more relief with steroid. The patient was offered a cortisone injection in bilateral knees. The patient was explained the risks, benefits, and alternatives to receiving this injection. After receiving consent for the injection, the patient had the procedure done while in the office today. The patient tolerated the procedure well with no complications. Due to the patient?s history of diabetes, they were instructed to monitor their blood glucose level. The patient was informed that they could see a rise in their numbers and if the numbers became too high, they were instructed to call their PCP. The patient was also informed that they could have facial flushing as a side effect of the injection, but this will pass. Additionally, we discussed the role of weight management in preparation of likely knee replacement in the future. Currently patient's BMI is 48.4 and patient was educated this needs to be under 40 to be in consideration of surgical intervention. Patient additionally has a past medical history significant for diabetes and is currently on Mounjaro. I encouraged the patient to continue conversations with weight loss and diabetes management with her PCP. Her last A1c was 5.8 on 07/27/2024. If the cortisone injections do not offer any relief the patient will contact our office in 4 weeks and we will petition the insurance company for coverage of gel injections. Follow-up will be PRN, or sooner if needed X-rays of the left knee which were obtained while in the office today and were reviewed by me, Judy Ray PA-C, revealed significant medial compartment osteoarthritis Orders: Orders XR knee LT 3V Today M25.569 - Pain in unspecified knee Coding Level of Care Code New Pt Level 4 (40654) Diagnoses Osteoarthritis of knees, bilateral M17.0 CPT Codes Coding - - Bilateral Large Joint: - Bilateral Large Joint ([id number])
[2025-01-22 09:00] VITALS: BMI 48.4
--- OUTSIDE RECORDS SUMMARY | 2025-01-22 09:10 | XMS_ITS | Encounter Summary ---
Author Organization [facility] Address [facility] [address] [address] Phone Care Team Providers Care Civil Process Server Name Role Phone Chinyere Murray DO Primary Care Provider [phone] Chinyere Murray DO Primary Care Provider [phone]- [phone] Elicia Powell MD Primary Care Provider [phone] Elicia Powell MD Unavailable [phone] Encounter Details Date Type Department Care Team (Late st Contact Info) Description 2020 Procedure [facility], [address] [id number] Social History Tobacco Use Types Packs/Day Years Used Date Smoking Tobacco: Every Day Cigarettes Started: 1983 Smokeless Tobacco: Never Alcohol Use Standard Drinks/Week Comments Not Currently 0 (1 standard drink = 0.6 oz pur e alcohol) Child or Family Care Answer Date Record ed Do you have problems with on e of the following making it difficult for you to work, study, or receive health care? No 2020 Education Answer Date Recorded Are you interested in help w ith more adult education (for example, completing high school, GED, job training, learning the Vietnamese language, technical skills, or developing parenting skills)? No 2020 Are you concerned about learning? Not on file 2020 Not on file 2020 Not on file 2020 Food Answer Date Recorded Within the past 6 months we worried whether our food would run out before we got money to buy more. Never True 2020 Within the past 6 months the food we bought just didn't last and we didn't have enough money to get more. Never True 0 Paying for Meds Answer Date Recorded Do you have trouble paying for medicines? No 2020 Paying Utility Bills Answer Date Record ed Do you have trouble paying your heating or elect ricity bill? No 2020 Transportation Answer Date Recorded Has the lack of transportati on kept you from medical appointments or from getting medications? No 2020 Comments No Sex and Gender Information Value Date Recorded Sex Assigned at Female 12/08/2020 9:04 AM EDT Legal Sex Female 9:28 PM EDT Gender Identity Female 12/08/2020 9:04 AM EDT Sexual Orientation Straight 12/08/2020 9: 04 AM EDT documented as of this encounter Plan of Treatment Not on file documented as of this encounter Visit Diagnoses Not on filedocumented in this encounter Care Teams Civil Process Server Relationship Specialty Start Date End Date Chinyere Murray DO [address] [place] [address] [email or web address] PCP - General Family Medicine 10/15/18 07/07/20 Chinyere Murray DO [address] [place] [phone] [email or web address] PCP - General Family Medicine 07/08/20 09/29/20 Elicia Powell MD [address] [place] [phone] [email or web address] PCP - General Family Medicine 09/30/20 Elicia Powell MD [address] [place] [phone] [email or web address] Insurance Assigned Provider 12/03/20 02/02/23 documented as of this encounter Additional Source Comments The information contained in this document represents components of the legal health record. It is not the complete legal health record.[facility]
--- OUTSIDE RECORDS SUMMARY | 2025-01-22 09:10 | XMS_ITS | Encounter Summary ---
Author Organization [employer] Address [address] [place] [address] [address] [place] [address] Care Team Providers Care Rotor Plate Washer Name Role Phone Jordi Gallo LLD Unavailable Elicia Powell MD Primary Care Provider [phone] Jovanny Mcduffie MD Primary Care Prov ider Encounter Details Date Type Department Care Team (Latest Contact Info) Description 07/01/2018 Abstract [facility] CONVERSIONS Dental, Provider, DDS Social History Tobacco [...] Care Team (Late st Contact Info) Description 05/10/2025 12:45 PM EST Office Visit [facility] [address] [place] [phone] Bonnie Naik [address] [place] [address] documented as of this encounter Visit Diagnoses Not on filedocumented in this encounter Care Teams Rotor Plate Washer Relationship Specialty Start Date End Date Elicia Powell MD [address] [place] [phone] PCP - General Family Medicine 01/02/23 12/03/23 Jovanny Mcduffie MD [address] [place] [phone] PCP - General Internal Medicine 12/09/23 Jordi Gallo LLD [address] [place] [phone] Dentist Dental Fiber Worker 01/02/23 documented as of this encounter
--- OUTSIDE RECORDS SUMMARY | 2025-01-22 09:10 | XMS_ITS | Clinical Summary ---
Author Organization [employer] Address [address] [facility] [address] [place] [address] Care Team Providers Care Grocery Shopper Name Role Phone Jordi Gallo LLJuice Unavailable Jovanny Mcduffie MD Primary Care Prov ider Allergies No known active allergies Medications ammonium lactate (Amlactin) 12 % cream APPLY TOPICALLY EVERY DAY TO THE FEET 02/23/20 23 Active aspirin 81 MG EC tablet Take 81 mg by mouth in the morning. Active latanoprost (Xalatan) 0.005 % ophthalmic solution INSTILL 1 DROP BOTH EYES EVERY EVENING 02/16/20 23 Active Blood Pressure kit 1 kit Once per day. 1 kit 12/07/19 24 Active Alcohol Swabs (Alcohol Pads) 70 % pads 1 Units Once per day. 100 each 11 12/07/19 24 Active atorvastatin (Lipitor) 80 MG tablet Take 1 tablet (80 mg) by mouth Once per day. 90 tablet 3 03/23/20 24 025 Active lisinopril 10 MG tablet TAKE ONE TABLET EVERY DAY 90 tablet 12/16/19 25 Active IBU 800 MG tablet TAKE ONE TABLET EVERY 8 HOURS NEEDED MILD PAIN 90 tablet 1 01/02/20 25 Active Tirzepatide (Mounjaro) 5 MG/0.5ML solution auto-injector Inject 5 mg under the skin 1 (one) time per week. 2 mL 1 01/06/20 25 Active ibuprofen 800 MG tablet Take 1 tablet (800 mg) by mouth every 8 (eight) hours if needed for mild pain. 90 tablet 1 11/10/19 25 025 Discontinued Tirzepatide (Mounjaro) 2.5 MG/0.5ML solution auto-injector Inject 2.5 mg under the skin 1 (one) time per week. 2 mL 3 12/09/19 25 025 Discontinued Active Problems Problem Noted Date Diagnosed Date Chest pain 11/09/2024 Assessment & Plan (11/09/2024 10:25 AM EDT): Fam hx of ID, she has several risk factors, had a brother with brugada syndrome, will refer to genetic Cervical cancer screening 04/07/2024 Assessment & Plan [...] of left knee 01/16/2024 Assessment & Plan (11/09/2024 10:24 AM EDT): Will refer to ortho for evaluation, will provide short course of steroids and ibuprofen for pain Assessment & Plan (01/16/2024 11:27 PM EDT): [...] PCP follow up 6 months ago, in [facility] No er visit on the [...] with microalbuminuria 0 07/04/2023 Assessment & Plan (01/05/2025 2:32 PM EDT): Improving, will increase mounjaro to 5mg, continue low carb diet and exercise as tolerated Assessment & Plan (11/30/2024 6:30 PM EDT): Patient with A1c 7.2%, she has previously tried metformin with abdominal pain and diarrhea as side effect, jardiance with frequent yeast infection as side effect and glipizide with severe hypoglycemia as side effect. Will start on ozempic due to above mentioned side effects. Patient previously was on a glp1 with good results including weight loss. Assessment & Plan (11/09/2024 10:24 AM EDT): Will check A1c, she is off treatment for diabetes for over 3 months, due to lack of coverage for GLP1 Assessment & Plan (09/18/2024 10:14 AM EDT): Controlled, no changes will be made, continue low carb/no sugar diet, follow up in 3 months Assessment & Plan (07/27/2024 1:45 PM EST): [...] changes, will reevaluate in office Obesity 06/05/2017 Assessment & Plan (09/18/2024 10:17 AM EDT): Will resend zepbound, patient will benefit from diabetes control, weight loss that will also help her control her blood pressure, will follow up in 2 months Resolved Problems Problem Noted Date Diagnosed Date [...] Encounters Date Type Department Care Team Description 01/05/2025 1:00 PM EDT Telemedicine [facility] [address] [place] [address] Jovanny Mcduffie MD Type 2 diabetes mellitus with microalbuminuria ([facility]) (Primary Dx) 01/05/2025 Travel 01/01/2025 Refill [facility] [address] [place] [address] Jovanny Mcduffie MD 12/15/2024 Refill [facility] [address] [place] [address] Jovanny Mcduffie MD 12/08/2024 Telephone [facility] [address] [place] [address] Jovanny Mcduffie MD 12/08/2024 Orders Only [facility] [address] [place] [address] Jovanny Mcduffie MD 12/08/2024 Telephone [facility] [address] [place] [address] Jovanny Mcduffie MD 12/01/2024 Telephone [facility] [address] [place] [address] Jovanny Mcduffie MD 11/30/2024 1:30 PM EDT Office Visit [facility] [address] [place] [address] Jovanny Mcduffie MD Type 2 diabetes mellitus with microalbuminuria (CMS/HCC) (Primary Dx) 11/30/2024 Travel 11/09/2024 9:30 AM EDT Telemedicine [facility] [address] [place] [address] Jovanny Mcduffie MD Chronic pain of left knee (Primary Dx); Chest pain, unspecified type; Type 2 diabetes mellitus with microalbuminuria (CMS/HCC) 11/06/2024 Telephone [facility] [address] [place] [address] Jovanny Mcduffie MD Chart Prep 11/02/2024 12:30 PM EDT Office Visit [address] [phone] Bonnie Naik Periodontal disease (Primary Dx) from Last 3 Months Immunizations Immunization Administration Dates Next Due Hep B, adult [...] Every Day Cigarettes 0.5 39.1 Started: 12/06/1985 Passive Smoke Exposure: Current Smokeless Tobacco: Never Tobacco Cessation:Ready to Q uit: Not Asked; Counseling Given: Not Answered Alcohol Use Standard Drinks/Week Comments Never 0 (1 standard drink = 0.6 oz pur e alcohol) Housing Stability Answer Date Recorded What is your housing situation today? I have danielle sing 12/25/[address] you li [...] Date Recorded Patient Health Questionnaire-2 Score 0 11/09/2024 Internet Access Answer Date Recorded Internet Access Q1 No 11/09/2024 Internet Access Q2 I do not want or need it 10/25 Comments No Sex and Gender Information Value Date Recorded Sex Assigned at Female 05/30/2022 1:58 PM EST Legal Sex Female 8:38 PM EST Gender Identity Female 04/06/2022 8:38 PM EST Sexual Orientation Straight 04/06/2022 8: 38 PM EST Last Filed Vital Signs Vital Sign Reading Time Taken Comments Blood Pressure 140/80 11/30/2024 1:46 PM EDT Pulse 80 11/30/2024 1:46 PM EDT Temperature 36.5 C (97.7 F) 11/30/2024 1:46 PM EDT Respiratory Rate 20 11/30/2024 1:46 PM EDT Oxygen Saturation 98% 09/18/2024 8:58 AM EDT Inhaled Oxygen Concentration - - Weight 135 kg (297 lb) 11/30/2024 1:46 PM EDT Height 167.6 cm (5' 6 ) 09/18/2024 8:58 AM EDT Body Mass Index 47.94 09/18/2024 8:58 AM EDT Plan of Treatment Upcoming Encounters Date Type Department Care Team (Late st Contact Info) Description 05/10/2025 12:45 PM EST Office Visit [facility] [address] [place] [phone] Bonnie Naik [address] [place] [address] Health Maintenance Due Date Last Done Comments CT Colonography 1975 Colonoscopy 1975 FIT 1975 FOBT 1975 Sigmoidoscopy 1975 Family Planning (PISQ) 1990 Diabetes: Foot Exam 01/02/2025 01/03/2024, 01/03/2024, 01/03/2024, Additional history exists Influenza Vaccine (#1) 2025 Zoster Vaccines (1 of 2) 2025 Diabetes: Hemoglobin A1C 03/02/2025 025, 07/27/2024, 01/03/2024, Additional history exists Dental X-Ray: Full Mouth 03/28/2025 022, 12/11/2017, 08/27/2014 COVID-19 Vaccine ( season) 2025 03/18/2021, 09/16/2020, 08/24/2020 Postponed from 01/26/2024 (Patient Refused) Dental Oral Exam 05/05/2025 11/02/2024, 07/2023, 08/14/2023, Additional history exists Dental Prophylaxis 05/05/2025 11/02/2024, 1 06/29/2023, 10/16/2023, Additional history exists Lipid Panel 07/27/2025 07/27/2024, 0809/2023, 02/07/2023 Alcohol/Substance Use Screening 11/02/2025 11/02/2024 Dental X-Ray: Bitewings 11/03/2025 11/03/19, 08/14/2023, 10/01/2022, Additional history exists Depression Screening 11/09/2025 11/09/2024, 11/10/19 Disability Screening 11/09/2025 11/09/2024 SDOH Screening 11/09/2025 11/09/2024 Tobacco Screening 11/30/2025 11/30/2024 Mammogram 12/31/2025 01/01/2024, 0907/2020, 02/16/2021, Additional history exists Eye Exam 01/14/2026 01/15/2024, 01/14/2024 Colorectal Cancer Screening 12/19/2026 FIT DNA/Cologuard 12/19/2026 12/20/2023 Cervical Cancer Screening 04/07/2029 HPV/Cotest 04/07/2029 04/07/2024 Pap Smear 04/07/2029 04/07/2024 DTaP/Tdap/Td Vaccines (3 - Td or Tdap) 06/05/2031 06/05/2021, 05/04/2010 RSV Patients and Patients Aged 60 years or older (1 - 1-dose 75+ series) 2050 Hepatitis B Vaccines Completed 12/26/2012, 07/25/2012, 06/19/2012 Pneumococcal Vaccine: Pediatrics (0 to 5 Years) and At-Risk Patients (6 to 49) Years Completed 05/01/2022 HIV Screening Completed 01/09/2024 Hepatitis [...] patient's age to complete this topic Meningococcal B Vaccine Aged Out No l onger eligible based on patient's age to complete [...] Procedure Name Priority Date/Time Associated Diagnosis Comments STRESS TEST WITH MYOCARDIAL PERFUSION Routine 01/05/2025 8:07 AM EDT Chest pain, unspecified type POCT GLYCATED HEMOGLOBIN, TOTAL Routine 11/30/2024 2:24 PM EDT Type 2 diabetes mellitus with microalbuminuria (CMS/HCC) POCT GLUCOSE Routine 11/30/2024 2:23 PM EDT Type 2 diabetes mellitus with microalbuminuria (CMS/HCC) PROPHYLAXIS - ADULT Routine 11/02/2024 1 2:30 PM EDT CASE PRESENTATION, DETAILED AND EXTENSIVE TREATMENT PLANNING Routine 11/02/2024 12:30 PM EDT BITEWINGS - 4 RADIOGRAPHIC IMAGES Routine 11/02/2024 12:30 PM EDT PERIODIC ORAL EVALUATION - ESTABLISHED PATIENT Routine 11/02/2024 12:30 PM EDT LIPID PANEL, STANDARD Routine 07/27/2024 2:30 PM EST Type 2 diabetes mellitus with microalbuminuria (CMS/HCC) PAP SMEAR Routine 04/07/2024 11:20 AM EST Cervical cancer screening HPV MRNA E6/E7 REFLEX TO HPV 16, 18/45 Routine 04/07/2024 12:00 AM EST AMB REFERRAL TO OPTOMETRY Routine 01/14/2024 Type 2 diabetes mellitus with diabetic microalbuminuria, without long-term current use of insulin (CMS/HCC) HEPATITIS C AB W/REFL TO HCV RNA, QN, PCR Routine 01/09/2024 8:21 AM EDT Type 2 diabetes mellitus with microalbuminuria (CMS/HCC) HIV 1/2 ANTIGEN/ANTIBODY, FOURTH GENERATION W/RFL Routine 01/09/2024 8:21 AM EDT Type 2 diabetes mellitus with microalbuminuria (CMS/HCC) BI MAMMOGRAM SCREENING TOMOSYNTHESIS BILATERAL Routine 01/01/2024 1:45 PM EDT Encounter for screening mammogram for malignant neoplasm of breast LAB COLOGUARD COLON CANCER SCREEN Routine 12/20/2023 9:40 AM EDT Screening for colon cancer INTRAORAL - COMPLETE SERIES OF RADIOGRAPHIC IMAGES Routine 03/27/2022 12:00 AM EDT from Last 3 Months or Most Recently Relevant to Health Maintenance Results * Stress test with myocardial perfusion (01/05/2025 8:07 AM EDT) 01/05/2025 8:07 AM EDT [facility] - 01/07/2025 3:12 PM EDT [address] [address] Nuclear Medicine Report Signed Patient: Ana Armijo MR#: [id number] 9 : 1975 Acct:[id number] Age/Sex: 49 / F ADM Date: 01/05/25 Loc: [facility] Attending Dr: Jovanny Worthy MD Ordering Physician: Jovanny Mcduffie MD Date of Service: 01/05/25 Procedure(s): NM cardiolite stress test Accession Number(s): [id number] cc: Jovanny Mcduffie MD EXERCISE MYOCARDIAL PERFUSION STUDY INDICATION: Chest pain TECHNIQUE: The patient was brought in for an exercise perfusion study on 01/05/2025. Patient performed exercise as per Shravan protocol and was injected 45 mCi of sestamibi once target heart rate was achieved. Images were obtained using the SPECT gamma camera interlaced with the gating device. Images were obtained in supine position. Resting perfusion study was performed on 01/07/2025. Patient was administered 45 mCi of sestamibi intravenously at rest. Images were then obtained in supine position. Total DLP 124 mGy-cm. Images were processed with the software and compared side to side in short axis, horizontal long axis and vertical long axis views. FINDINGS: Raw aquisition reviewed. The stress perfusion study showed decreased tracer uptake along the inferior wall, mostly towards the apical portion. There is improvement with CT attenuation correction suggestive of diaphragmatic attenuation artifact. The gated study shows normal LV systolic function with calculated LVEF of 64%. LV cavity is normal in size. The gated study shows normal wall thickening and contraction of segments. Resting study shows no significant perfusion abnormality. Gating at rest reveals normal wall motion with ejection fraction at 56%. The findings are consistent with reversible inferoapical defect probably from diaphragmatic attenuation artifact. NM/NM cardiolite stress test IMPRESSION: 1. Myocardial perfusion imaging study shows no clear evidence of ischemia or infarction. Probably normal myocardial perfusion. 2. Gated LVEF is 64% during stress and 56% during rest. 3. Transient ischemic dilatation not present. EKG component of the test reported separately. Electronically signed by: Ramos Banuelos MD 01/07/2025 03:09 PM EDT RP Dictated By: Ramos Banuelos MD Signed By: <Electronically signed by Ramos Banuelos MD in OV> 01/07/25 1509 DD/ 0807 TD/TT: 01/07/25 0815 Utilization Engineer: Procedure Note Donotuseinterpreter, Image - 01/07/[address] [address] Nuclear Medicine Report Signed Patient: Keena Armijo#: [id number] 9 : 1975Acct:[id number] Age/Sex: 49 / FADM Date: 01/05/25 Loc: [facility] Attending Dr: Jovanny Worthy MD Ordering Physician: Jovanny Mcduffie MD Date of Service: 01/05/25 Procedure(s): NM cardiolite stress test Accession Number(s): [id number] cc: Jovanny Mcduffie MD EXERCISE MYOCARDIAL PERFUSION STUDY INDICATION: Chest pain TECHNIQUE: The patient was brought in for an exercise perfusion study on 01/05/2025. Patient performed exercise as per Shravan protocol and was injected 45 mCi of sestamibi once target heart rate was achieved. Images were obtained using the SPECT gamma camera interlaced with the gating device. Images were obtained in supine position. Resting perfusion study was performed on 01/07/2025. Patient was administered 45 mCi of sestamibi intravenously at rest. Images were then obtained in supine position. Total DLP 124 mGy-cm. Images were processed with the software and compared side to side in short axis, horizontal long axis and vertical long axis views. FINDINGS: Raw aquisition reviewed. The stress perfusion study showed decreased tracer uptake along the inferior wall, mostly towards the apical portion. There is improvement with CT attenuation correction suggestive of diaphragmatic attenuation artifact. The gated study shows normal LV systolic function with calculated LVEF of 64%. LV cavity is normal in size. The gated study shows normal wall thickening and contraction of segments. Resting study shows no significant perfusion abnormality. Gating at rest reveals normal wall motion with ejection fraction at 56%. The findings are consistent with reversible inferoapical defect probably from diaphragmatic attenuation artifact. NM/NM cardiolite stress test IMPRESSION: 1. Myocardial perfusion imaging study shows no clear evidence of ischemia or infarction. Probably normal myocardial perfusion. 2. Gated LVEF is 64% during stress and 56% during rest. 3. Transient ischemic dilatation not present. EKG component of the test reported separately. Electronically signed by: Ramos Banuelos MD 01/07/2025 03:09 PM EDT RP Workstation: [id number] Dictated By: Ramos Banuelos MD Signed By: <Electronically signed by Ramos Banuelos MD inOV> 01/07/25 1509 DD/ 0807 TD/TT: 01/07/25 0815 Utilization Engineer: Jovanny Worthy MD CV STRESS PROCEDUR ES Final Result [facility] [address] [place] [phone] * (ABNORMAL) POCT HGB A1C (11/30/2024 2:24 PM EDT) Hemoglobin A1C 7.2(A) 4.0 - 5.7 % Blood 11/30/2024 2:24 PM EDT Jovanny Worthy MD POINT OF CARE TEST ENTER/EDIT ORDERABLES Final Result * POCT Glucose (11/30/2024 2:23 PM EDT) Glucose Blood, POC 171 60 - 200 mg/dL Blood Capillary blood specimen / Unknown 11/30/2024 2:23 PM EDT Jovanny Worthy MD POINT OF CARE TEST ENTER/EDIT ORDERABLES Final Result * (ABNORMAL) Lipid Panel, Standard (07/27/2024 2:30 PM EST) Triglycerides 170(H) <150 mg/dL [facility] Comment:Desirable Triglyceri de: less than 150 mg/dLBorderline High Triglyceride 150-199 mg/dLHigh Triglyceride: 200-499 mg/dLVery High Triglyceride: greater than or equal to 5OO mg/dL Cholesterol 123 <200 mg/dL [facility] Comment:Desirable Cholestero l: less than 200 mg/dLBorderline High Cholesterol: 200-239 mg/dLHigh Cholesterol: greater than 239 mg/dL LDL Cholesterol Calculated 65 <100 mg/dL [facility] Comment:Desirable LDL: less than 100 mg/dLNear Optimal/Above Optimal LDL: 110- 129 mg/dLBorderline High LDL: 130-159 mg/dLHigh LDL: 160-189 mg/dLVery High LDL: greater than or equal to 190 mg/dL HDL Cholesterol 24(L) >40 mg/dL [facility] Comment:Desirable HDL: great er than 40 mg/dL Note: This HDL assay may give artificially low results in patients with liver disease. Blood Venous blood specimen / Unknown 07/27/2024 2:30 PM EST 07/27/2024 5:45 PM EST us Jovanny Worthy MD LAB BLOOD ORDERABL ES Final Result [facility] [address] [place] [phone] * Pap Smear (04/07/2024 11:20 AM EST) Swab Cervix uteri structure / Unknown 04/07/2024 11:20 AM EST 04/08/2024 11:00 AM EST Narrative [facility] - 05/01/2024 11:20 AM EST ----- ------- Name: Ana Armijo Age/Sex: 49/F : 1975 Unit#: [id number] Attend Dr: Jailene Ding MD Re04/07/24 Status: DEP REF Location: [facility] Disch: ----- ------- SPEC : [id number] RECD: 04/08/24 STATUS: MONA CORONEL NUM: [id number] CONNOR: 04/07/[address] [facility] [address]: Jailene Ding MD ENTERED: 04/08/24 SP TYPE: Pap Smr OTHR DR: ORDERED: Pap Smear Addendum Addendum 1 Entered: 05/01/24 HPV High Risk: Negative HPV Genotyping 16: Negative HPV Genotyping 18: Negative Addendum Signed (signature on file) Demond Hylton MD 05/01/241119 ----- ------- Interpretation Satisfactory for evaluation. Negative for intraepithelial lesion or malignancy. Clinical Information LMP: Unknown date Previous PAP test: Unknown date, WNL Material Received ThinPrep-Cervical ----- ------- Signed (signature on file) MORENITA Caldera (ASCP) 04/13/24 1016 (signature on file) Demond Hylton MD 05/01/24 1120 ----- ------- END OF REPORT us Jailene Ding MD LAB CYTOLOGY ORDERABLES Final Result Performing Organization Address [facility]/ZIP Co de Phone Number [facility] [address] [place] [address] [phone] * HPV mRNA E6/E7 w/Reflex to HPV Genotypes 16, 18/45 (04/07/2024 12:00 AM EST) Мария Crawford MD LAB CYTOLOGY ORDERABLES F inal Result Performing Organization Address [facility] Co de Phone Number [facility] [address] [place] [address] [phone] * Referral to Optometry (01/14/2024) us Jovanny Worthy MD OUTPATIENT REFERRA L ORDERABLES Final Result * Hepatitis C Antibody with Reflex to HCV, RNA, Quantitative, Real-Time PCR (01/09/2024 8:21 AM EDT) Hepatitis C Antibody Nonreactive Nonreactive [facility] Comment:Antibodies to HCV no t detected; does not exclude early acuteHCV infection. Blood Venous blood specimen / Unknown 01/09/2024 8:21 AM EDT 01/09/2024 2:04 PM EDT Jovanny Worthy MD LAB BLOOD ORDERABL ES Final Result Performing Organization Address [facility] Co de Phone Number [facility] [address] [place] [phone] * HIV-1/2 Antigen and Antibodies, Fourth Generation, with Reflexes (01/09/2024 8:21 AM EDT) HIV AB/AG Nonreactive Nonreactive [facility] Comment:HIV-1 p24 Ag and/or HIV-1/HIV-2 Ab not detected.A test result that is nonreactive does not exclude thepossibility of exposure to or infection with HIV-1 and/orHIV-2. Nonreactive results in this assay for individualswith prior exposure to HIV-1 and/or HIV-2 may be due toantigen and antibody levels that are below the limit ofdetection of this assay.The [employer] HIV Ag/Ab Combo assay result andsupplemental assay results should be interpreted inconjunction with the patient's clinical presentation,history and other laboratory results. If the results areinconsistent with clinical evidence, additional testing issuggested to confirm the result. Blood Venous blood specimen / Unknown 01/09/2024 8:21 AM EDT 01/09/2024 2:04 PM EDT Jovanny Worthy MD LAB BLOOD ORDERABL ES Final Result Performing Organization Address [facility]/ZIP Co de Phone Number [facility] [address] [place] [phone] * BI Mammogram Screening Tomosynthesis Bilateral (01/01/2024 1:45 PM EDT) Anatomical Region Laterality Modality Breast Bilateral Mammography 01/01/2024 1:45 PM EDT Narrative 01/28/2024 7:48 AM EDT [facility] [address] [place] [address] Mammography Report Signed Patient: Ana Armijo MR#: [id number] 9 : 1975 Acct:[id number] Age/Sex: 48 / F ADM Date: 01/01/24 Loc: HO.MAMMO Attending Dr: Jovanny Worthy MD Ordering Physician: Jovanny Mcduffie MD Res ults: 2Benign Findings Date of Service: 01/01/24 Follow Up: 1 Year From Orig ina Mammogram Procedure(s): MM tomosynthesis screening BI Accession Number(s): [id number] cc: Jovanny Mcduffie MD EXAMINATION: MM SCREENING [...] 01/28/24 0745 DD/ 1345 TD/TT: 01/01/24 1400 Utilization Engineer: Procedure Note Donotuseinterpreter, Image - [facility]28/[facility] [address] [place] [address] Mammography Report Signed Patient: Keena Armijo#: [id number] 9 : 1975Acct:[id number] Age/Sex: 48 / FADM Date: 01/01/24 Loc: HO.MAMMO Attending Dr: Jovanny Worthy MD Ordering Physician: Jovanny Mcduffie ults: 2Benign Findings Date of Service: 01/01/24Follow Up: 1 Year From Orig ina Mammogram Procedure(s): MM tomosynthesis screening BI Accession Number(s): [id number] cc: Jovanny Mcduffie MD EXAMINATION: MM SCREENING [...] 01/28/24 0745 DD/ 1345 TD/TT: 01/01/24 1400 Utilization Engineer: us Jovanny Worthy MD IMG BI PROCEDURES Final Result * Cologuard?? colon cancer screening (12/20/2023 9:40 AM EDT) Cologuard Result Negative Negative 12/28/19 3:48 AM ED[facility] (CLIA #:[id number]) Comment: NEGATIVE TEST RESULT. A negative Cologuard result indicates a low likelihood that a colorectal cancer (CRC) or advanced adenoma (adenomatous polyps with more advanced pre-malignant features) is present. The chance that a person with a negative Cologuard test has a colorectal cancer is less than 1 in 1500 (negative predictive value >99.9%) or has an advanced adenoma is less than 5.3% (negative predictive value 94.7%). These data are based on a prospective cross-sectional study of 10,000 individuals at average risk for colorectal cancer who were screened with both Cologuard and colonoscopy. (Pavan Robison. et al, N Engl J Med 2014;370(14):8762-9402) The normal value (reference range) for this assay is negative. COLOGUARD RE-SCREENING RECOMMENDATION: Periodic colorectal cancer screening is an important part of preventive healthcare for asymptomatic individuals at average risk for colorectal cancer. Following a negative Cologuard result, the [place] [employer] and U.S. Multi-Society Task Force screening guidelines recommend a Cologuard re-screening interval of 3 years. References: [place] [employer] Guideline for Colorectal Cancer Screening: https://www.cancer.org/cancer/slmfg-hgybdd-hlseli/ygglxxybe-gedwbmduh-muqjupv/ac s-rec ommendations.html.; Jase LOPEZ, Sridhar PARADA, Tom MaradiagaK, Colorectal Cancer Screening: Recommendations for Physicians and Patients from the U.S. Multi-Society Task Force on Colorectal Cancer Screening , Am J Gastroenterology 2017; 112:5615-0941. TEST DESCRIPTION: Composite algorithmic analysis of stool DNA-biomarkers with hemoglobin immunoassay. Quantitative values of individual biomarkers are not [...] Stratton et al, N Engl J Med 2014;370(14):5973-1973.) Cologuard may produce a false negative or false positive result (no colorectal cancer or precancerous polyp present at colonoscopy follow up). A negative Cologuard test result does not guarantee the absence of CRC or advanced adenoma (pre-cancer). The current Cologuard screening interval is every 3 years. ([place] [employer] and U.S. Multi-Society Task Force). Cologuard performance data in a 10,000 patient pivotal study using colonoscopy as the reference method can be accessed at the following location: www.Aut[employer] Now/results. Additional description of the Cologuard test process, warnings and precautions can be found at www.Member Savings [email or web address].[email or web address]. Stool specimen (specimen) 12/20/2023 9:40 AM EDT 12/23/2023 11:04 AM EDT Jovanny Worthy MD LAB MOLECULAR DIAG NOSTICS ORDERABLES Final Result Gogo (CLIA #:[id number]) [address] [place] [address], from Last 3 Months or Most Recently Relevant to Health Maintenance [facility] MEDICAID STAND ADULT DENTAL - HSN FULL (MEDICAID) Care Teams Grocery Shopper Relationship Specialty Start Date End Date Jovanny Mcduffie MD [address] [place] [address] PCP - General Internal Medicine 12/09/23 Jordi Gallo LLD [address] [place] [address] Dentist Dental Bakery Worker 01/02/23
--- OUTSIDE RECORDS SUMMARY | 2025-01-22 09:10 | XMS_ITS | Encounter Summary ---
Author Organization [facility] Address [facility] [employer] [address] [address] Phone Care Team Providers Care Curb Setter Name Role Phone Elicia Powell MD Primary Care Provider + [phone] Reason for Visit * Reason Comments Medication Refill Encounter Details Date Type Department Care Team ([facility] st Contact Info) Description 06/13/2023 Refill [facility] Podiatry [address] [place] [address] Chelsy Hartmann DPM [address] [facility] [address] [place] [address] [email or web address] Medication Refill Social History Tobacco Use Types Packs/Day Years Used Date Smoking Tobacco: Every Day Cigarettes 1 41.7 Started: 1983 Smokeless Tobacco: Never Alcohol Use Standard Drinks/Week Comments Not Currently 0 (1 standard drink = 0.6 oz pur e alcohol) Child or Family Care Answer Date Record ed Do you have problems with on e of the following making it difficult for you to work, study, or receive health care? No 11/19/2022 Education Answer Date Recorded Are you interested in help w ith more adult education (for example, completing high school, GED, job training, learning the [place] language, technical skills, or developing parenting skills)? No 11/19/2022 Are you concerned about learning? Not on file 11/19/2022 No 11/19/2022 Yes 11/19/2022 Food Answer Date Recorded Within the past 6 months we worried whether our food would run out before we got money to buy more. Never True 11/19/2022 Within the past 6 months the food we bought just didn't last and we didn't have enough money to get more. Never True Residential Stability Answer Date Recor ded What is your housing situation today? I have danielle palomo 11/19/2022 How many times have you move d in the past 12 months? Zero (I did not move) 11/19/2022 Paying for Meds Answer Date Recorded Do you have trouble paying for medicines? No 11/19/2022 Paying Utility Bills Answer Date Record ed Do you have trouble paying your heating or elect ricity bill? No 11/19/2022 Transportation Answer Date Recorded Has the lack of transportati on kept you from medical appointments or from getting medications? No 11/19/2022 Unemployment Answer Date Recorded Are you currently unemployed or working on a part-time or temporary basis, and looking for work? No 12/08/2020 Digital Access Answer Date Recorded No 11/19/2022 Yes 11/19/2022 Do you have reliable internet access at home? Ye s 11/19/2022 Do you have a device (e.g., phone, tablet, computer) with a working camera? Yes 11/19/2022 SNAP & WIC Answer Date Recorded Do you receive benefits from SNAP (the Supplemental Nutrition Assistance Program) or the Food Stamp Program? Yes 11/19/2022 SNAP is a free program, interested in learning m ore? Not on file 11/19/2022 Can we help you enroll in SNAP? Not on file 11/19/2022 Benefits received from WIC? Not on file 10/26 WIC is a free program, interested in learning mo re? Not on file 11/19/2022 Can we help you enroll in WIC? Not on file 0 11/19/2022 Intimate Partner Violence Answer Date R ecorded Denied Basic Needs Not on file 11/19/2022 In the past 12 months have y ou been in a relationship with a person who hurts, threatens, or tries to control you? No 11/19/2022 Worried food would run out Not on file 11/19 In the past 12 months have y ou been in a relationship with a person who hurts, threatens, or tries to control you? 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 Not on file Not on file Not on file documented as of this encounter Plan of Treatment Not on file documented as of this encounter Visit Diagnoses Diagnosis Poorly controlled type 2 diabetes mellitus with neuropathy documented in this encounter Additional Health Concerns Assessment Noted Time PHQ-2 Depression Total Score: 0 02/08/20 23 12:56 PM EDT documented as of this encounter Care Teams Curb Setter Relationship Specialty Start Date End Date Elicia Powell MD [address] [place] [address] [email or web address] PCP - General Family Medicine 09/30/20 documented as of this encounter Additional Source Comments The information contained in this document represents components of the legal health record. It is not the complete legal health record.[facility]
--- OUTSIDE RECORDS SUMMARY | 2025-01-22 09:10 | XMS_ITS | Encounter Summary ---
Author Organization [facility] Address [address] [place] [address] 7 [place] [address] Care Team Providers Care Print Line Supervisor Name Role Phone Jordi Gallo LLD Unavailable Elicia Powell MD Primary Care Provider [phone] Jovanny Mcduffie MD Primary Care Prov ider Encounter Details Date Type Department Care Team (Latest Contact Info) Description 01/26/2020 [facility], [facility], DDS Social History Tobacco [...] EST Office Visit [facility] [address] [place] [address] Bonnie Naik [address] [place] [address] documented as of this encounter Visit Diagnoses Not on filedocumented in this encounter Care Teams Print Line Supervisor Relationship Specialty Start Date End Date Elicia Powell MD [address] [place] [address] PCP - General Family Medicine 01/02/23 12/03/23 Jovanny Mcduffie MD [address] [place] [address] PCP - General Internal Medicine 12/09/23 Jordi Gallo LLD [address] [place] [address] Dentist Dental Echo Vasc Tech 01/02/23 documented as of this encounter
--- OUTSIDE RECORDS SUMMARY | 2025-01-22 09:10 | XMS_ITS | Encounter Summary ---
Author Organization [facility] Address [address] [place] [address] Phone Care Team Providers Care Laborer High Density Press Name Role Phone Chinyere Murray DO Primary Care Provider [phone]- [phone] Chinyere Murray DO Primary Care Provider + [phone] Elicia Powell MD Primary Care Provider [phone] Elicia Powell MD Unavailable [phone] Encounter Details Date Type Department Care Team (Late st Contact Info) Description 02/16/2020 Ancillary Orders [facility] [place] [address] [place] [address] Chinyere Murray, DO [address] [place] [address] [email or web address] Abnormal mammogram Social History Tobacco Use Types Packs/Day Years [...] high school, GED, job training, learning the Greek language, technical skills, or developing parenting skills)? [...] on file documented as of this encounter Results * BI MAMMOGRAM DIAGNOSTIC WITH TOMOSYNTHESIS NO CAD (BILATERAL) (02/25/2020 10:15 AM EDT) Anatomical Region Laterality Modality Breast Left, Breast Right, Breast Bilateral Bila teral Mammography 02/25/2020 10:4 0 AM EDT Impressions 02/25/2020 10:49 AM EDT RIGHT BREAST: Group of round calcifications in the upper-outer quadrant at 10 cm from the nipple. Findings are probably benign. A six months follow-up diagnostic mammogram is recommended with spot magnified compression views in CC and ML 90 degrees. LEFT BREAST: Two groups of round calcifications in the medial breast, one located in the lower breast and a 2nd one probably located in the upper breast. Findings are probably benign. A six-month follow-up diagnostic mammogram is recommended with spot magnified compression views in CC and ML 90 degrees. BI-RADS: BI-RADS CATEGORY: 3 - Probably benign finding. Short interval follow up suggested. RIGHT RECOMMENDATION DUE DATE: 6 Months Short Interval Follow-Up LEFT RECOMMENDATION DUE DATE: 6 Months Short interval follow-up Narrative 02/25/2020 10:49 AM EDT History: Call back from screening for group calcifications in both breasts STUDY: Bilateral diagnostic mammography with tomosynthesis and CAD TECHNIQUE: Bilateral digital diagnostic mammography is obtained and read in conjunction with computer-aided detection. Tomosynthesis as well as 2-D C view imaging were obtained. Spot magnified compression views were obtained. COMPARISON: Comparison made to screening mammogram on February 15, 2020 RIGHT BREAST: Grouped round calcifications in the upper outer quadrant of the right breast, best seen on the tomosynthesis ML 90 degrees 15/73 at 10 cm from the nipple. LEFT BREAST: There are two groups of round calcifications in the inner breast on the CC view, one of them located in the lower breast at 9 cm from the nipple (tomosynthesis ML 90 degrees 37/76) and 2nd group probably located in the upper breast at 9 cm from the nipple (evaluation partially limited by motion, but best seen on tomosynthesis ML 90 degrees 31/76). The 2nd group of calcifications in the upper breast were not imaged on the magnified views Procedure Note Alfonso Avelar MD - 02/25/2020 History: Call back from screening for group calcifications in bothbreasts STUDY: Bilateral diagnostic mammography with tomosynthesis and CAD TECHNIQUE: Bilateral digital diagnostic mammography is obtained and readin conjunction with computer-aided detection. Tomosynthesis as well as2-D C view imaging were obtained. Spot magnified compression views wereobtained. COMPARISON: Comparison made to screening mammogram on February 15, 2020 RIGHT BREAST: Grouped round calcifications in the upper outer quadrant ofthe right breast, best seen on the tomosynthesis ML 90 degrees 15/73 at 10cm from the nipple. LEFT BREAST: There are two groups of round calcifications in the innerbreast on the CC view, one of them located in the lower breast at 9 cmfrom the nipple (tomosynthesis ML 90 degrees 37/76) and 2nd group probablylocated in the upper breast at 9 cm from the nipple (evaluation partiallylimited by motion, but best seen on tomosynthesis ML 90 degrees 31/76).The 2nd group of calcifications in the upper breast were not imaged on themagnified views IMPRESSION: RIGHT BREAST: Group of round calcifications in the upper-outer quadrant at10 cm from the nipple. Findings are probably benign. A six monthsfollow-up diagnostic mammogram is recommended with spot magnifiedcompression views in CC and ML 90 degrees. LEFT BREAST: Two groups of round calcifications in the medial breast, onelocated in the lower breast and a 2nd one probably located in the upperbreast. Findings are probably benign. A six-month follow-up diagnosticmammogram is recommended with spot magnified compression views in CC andML 90 degrees. BI-RADS: BI-RADS CATEGORY: 3 - Probably benign finding. Short intervalfollow up suggested. RIGHT RECOMMENDATION DUE DATE: 6 Months Short Interval Follow-Up LEFT RECOMMENDATION DUE DATE: 6 Months Short interval follow-up us Chinyere Murray DO IMG MG EXAMS Final Resu lt documented in this encounter Visit Diagnoses Diagnosis Abnormal mammogram Abnormal mammogram, unspecified Abnormal mammogram Abnormal mammogram, unspecified documented in this encounter Care Teams Laborer High Density Press Relationship Specialty Start Date End Date Chinyere Murray DO [address] [place] [address] [email or web address] PCP - General Family Medicine 10/15/18 07/07/20 Chinyere Murray DO [address] [place] [address] [email or web address] PCP - General Family Medicine 07/08/20 09/29/20 Elicia Powell MD [address] [place] [address] [email or web address] PCP - General Family Medicine 09/30/20 Elicia Powell MD [address] [place] [address] [email or web address] Insurance Assigned Provider 12/03/20 02/02/23 documented as of this encounter Additional Source Comments The information contained in this document represents components of the legal health record. It is not the complete legal health record.[facility]
--- OUTSIDE RECORDS SUMMARY | 2025-01-22 09:11 | XMS_ITS | Encounter Summary ---
Author Organization [employer] Address [address] [facility] 7 [place] [address] Care Team Providers Care Dry Starch Operator Name Role Phone Jordi Gallo LLJuice Unavailable Jovanny Mcduffie MD Primary Care Prov ider Reason for Visit * Reason Onset Date Comments Medication Question 07/17/2024 Encounter Details Date Type Department Care Team ([facility] st Contact Info) Description 07/17/2024 Telephone [facility] MED[facility]INE [address] [place] [address] Jovanny Mcduffie MD [address] [place], [place] [phone] Medication Question Social History Tobacco Use Types [...] on the Same one. Contact pt at [phone] documented in this encounter Plan of Treatment Upcoming Encounters Date Type Department Care Team ([facility] st Contact Info) Description 05/10/2025 12:45 PM EST Office Visit [facility] [address] [place] [address] Bonnie Naik [address] [place] [address] documented as of this encounter Visit Diagnoses Not on filedocumented in this encounter Care Teams Dry Starch Operator Relationship Specialty Start Date End Date Jovanny Mcduffie MD [address] [place] [address] PCP - General Internal Medicine 12/09/23 Jordi Gallo LLD [address] [place] [address] Dentist Dental Graphic Manager 01/02/23 documented as of this encounter
--- OUTSIDE RECORDS SUMMARY | 2025-01-22 09:11 | XMS_ITS | Encounter Summary ---
Author Organization [employer] Address [address] [facility] 7 [place] [address] Care Team Providers Care Satellite Dish Installer Name Role Phone Jordi Gallo LLJuice Unavailable Jovanny Mcduffie MD Primary Care Prov ider Reason for Visit * Reason Onset Date Comments Medication Question 07/10/2024 Encounter Details Date Type Department Care Team ([facility] st Contact Info) Description 07/10/2024 Telephone [facility] MEDICINE [address] [place] [address] Jovanny Mcduffie MD [address] [place], [place] [phone] Medication Question Social History Tobacco Use Types [...] need blood work regarding zepbound and diabetes. [phone] documented in this encounter Plan of Treatment Upcoming Encounters Date Type Department Care Team (Late st Contact Info) Description 05/10/2025 12:45 PM EST Office Visit [facility] [address] [place] [address] Bonnie Naik [address] [place] [address] documented as of this encounter Visit Diagnoses Not on filedocumented in this encounter Care Teams Satellite Dish Installer Relationship Specialty Start Date End Date Jovanny Mcduffie MD [address] [place] [address] PCP - General Internal Medicine 12/09/23 Jordi Gallo LLD [address] [place] [address] Dentist Dental Brake Shoe Rebuilder 01/02/23 documented as of this encounter
--- OUTSIDE RECORDS SUMMARY | 2025-01-22 09:11 | XMS_ITS | Encounter Summary ---
Author Organization [employer] Address [address] [facility] 7 [place] [address] Care Team Providers Care Director Of Physical Education Name Role Phone Jordi Galol LLJuice Unavailable Jovanny Mcduffie MD Primary Care Prov ider Reason for Visit * Reason Onset Date Comments Nurse Triage 12/20/2023 Med Refill 12/20/2023 Encounter Details Date Type Department Care Team (Late st Contact Info) Description 12/20/2023 Telephone [facility] MEDICINE [address] [place] [address] Jovanny Mcduffie MD [address] [place] [address] Nurse Triage; Med Refill Social History Tobacco [...] 11:20 AM EDT Call returned to Ana Armijo to triage below. Reports having vaginal irritation [...] Description 05/10/2025 12:45 PM EST Office Visit [facility] GR DENTAL [address] [place] [address] Bonnie Naik [address] [place] [address] documented as of this encounter Visit Diagnoses Not on filedocumented in this encounter Care Teams Director Of Physical Education Relationship Specialty Start Date End Date Jovanny Mcduffie MD [address] [place] [address] PCP - General Internal Medicine 12/09/23 Jordi Gallo LLD [address] [place] [address] Dentist Dental Co Op 01/02/23 documented as of this encounter
--- OUTSIDE RECORDS SUMMARY | 2025-01-22 09:11 | XMS_ITS | Encounter Summary ---
Author Organization [employer] Address [address] [facility] [address] 7[address] [place] [address] Care Team Providers Care Pipefitter Name Role Phone Jordi Gallo LLJuice Unavailable Jovanny Mcduffie MD Primary Care Prov ider Encounter Details Date Type Department Care Team (Late st Contact Info) Description 09/22/2024 Orders Only [facility] MED & PEDS [address] [place], [place] [phone] Calli Garcia Social History Tobacco Use Types [...] Description 05/10/2025 12:45 PM EST Office Visit [facility] GR DENTAL [address] [place] [phone] Bonnie Naik [address] [place] [address] documented as of this encounter Procedures Procedure Name Priority Date/Time Associated Diagnosis Comments HPV MRNA E6/E7 REFLEX TO HPV 16, 18/45 Routine 04/07/2024 12:00 AM EST documented in this encounter Results * HPV mRNA E6/E7 w/Reflex to HPV Genotypes 16, 18/45 (04/07/2024 12:00 AM EST) us Historical Provider LAB CYTOLOGY ORDERABLES F inal Result [facility] [address] [place] [phone] documented in this encounter Visit Diagnoses Not on filedocumented in this encounter Care Teams Pipefitter Relationship Specialty Start Date End Date Jovanny Mcduffie MD [address] [place] [address] PCP - General Internal Medicine 12/09/23 Jordi Gallo LLD [address] [place] [address] Dentist Dental Animal Husbandry Professor 01/02/23 documented as of this encounter
--- OUTSIDE RECORDS SUMMARY | 2025-01-22 09:11 | XMS_ITS | Encounter Summary ---
Author Organization [facility] Address [facility] [employer] [address] [address] Phone Care Team Providers Care Four Slide Machine Operator Name Role Phone Chinyere Murray DO Primary Care Provider [phone]- [phone] Chinyere Murray DO Primary Care Provider [phone]- [phone] Elicia Powell MD Primary Care Provider +[phone]- [phone] Elicia Powell MD Unavailable [phone] Encounter Details Date Type Department Care Team (Late st Contact Info) Description 07/07/2020 Procedure Pass [facility], [address] [phone] Social History Tobacco Use Types Packs/Day Years [...] high school, GED, job training, learning the [place] language, technical skills, or developing parenting skills)? [...] on filedocumented in this encounter Care Teams Four Slide Machine Operator Relationship Specialty Start Date End Date Chinyere Murray DO [address] [place] [address] [email or web address] PCP - General Family Medicine 10/15/18 07/07/20 Chinyere Murray DO [address] [place] [address] [email or web address] PCP - General Family Medicine 07/08/20 09/29/20 Elicia Powell MD [address] [place] [address] [email or web address] PCP - General Family Medicine 09/30/20 Elicia Powell MD [address] [place] [address] [email or web address] Insurance Assigned Provider 12/03/20 02/02/23 documented as of this encounter Additional Source Comments The information contained in this document represents components of the legal health record. It is not the complete legal health record.[facility]
--- OUTSIDE RECORDS SUMMARY | 2025-01-22 09:11 | XMS_ITS | Encounter Summary ---
Author Organization [employer] Address [address] [facility] 7 [place] [address] Care Team Providers Care Italian Teacher Name Role Phone Jordi Gallo LLD Unavailable Jovanny Mcduffie MD Primary Care Prov ider Encounter Details Date Type Department Care Team ([facility] st Contact Info) Description 12/08/2024 Orders Only [facility] CHC MED & PEDS [address] [place] [address] Jovanny Mcduffie MD [address] [place] [address] Social History Tobacco Use Types Packs/Day Years Used Date Smoking Tobacco: Every Day Cigarettes 0.5 39.1 Started: 12/06/1985 Passive Smoke Exposure: Current Smokeless Tobacco: Never Alcohol Use Standard Drinks/Week [...] Description 05/10/2025 12:45 PM EST Office Visit [facility] GR DENTAL [address] [place] [phone] Bonnie Naik [address] [place] [address] documented as of this encounter Visit Diagnoses Not on filedocumented in this encounter Care Teams Italian Teacher Relationship Specialty Start Date End Date Jovanny Mcduffie MD [address] [place] [address] PCP - General Internal Medicine 12/09/23 Jordi Gallo LLD [address] [place] [address] Dentist Dental Actimize Architect 01/02/23 documented as of this encounter
--- OUTSIDE RECORDS SUMMARY | 2025-01-22 09:11 | XMS_ITS | Encounter Summary ---
Author Organization [employer] Address [address] [facility] 7 [place] [address] Care Team Providers Care Disc Pad Plate Filler Name Role Phone Jordi Gallo LLD Unavailable Jovanny Mcduffie MD Primary Care Prov ider Encounter Details Date Type Department Care Team ([facility] st Contact Info) Description 07/31/2024 Orders Only [facility] CHC MED & PEDS [address] [place] [address] Jovanny Mcduffie MD [address] [place] [address] Dietary counseling; Exercise counseling Social History Tobacco Use Types Packs/Day Years [...] Description 05/10/2025 12:45 PM EST Office Visit [facility] GR DENTAL [address] [place] [phone] Bonnie Naik [address] [place] [address] documented as of this encounter Visit Diagnoses Diagnosis Dietary counseling Dietary surveillance and counseling Exercise counseling documented in this encounter Care Teams Disc Pad Plate Filler Relationship Specialty Start Date End Date Jovanny Mcduffie MD [address] [place] [address] PCP - General Internal Medicine 12/09/23 Jordi Gallo LLD [address] [place] [address] Dentist Dental Bed Machine Operator 01/02/23 documented as of this encounter
--- OUTSIDE RECORDS SUMMARY | 2025-01-22 09:11 | XMS_ITS | Encounter Summary ---
Author Organization [employer] Address 75 [facility] 7 [place] [address] Care Team Providers Care Life Skills Instructor Name Role Phone Jordi Gallo LLJuice Unavailable Jovanny Mcduffie MD Primary Care Prov ider Reason for Visit * Reason Onset Date Comments Results 07/31/2024 Encounter Details Date Type Department Care Team ([facility] Contact Info) Description 07/31/2024 Telephone [facility] MED & PEDS [address] [place] [address] Jovanny Mcduffie MD 505 [place] [address] Results Social History Tobacco Use Types Packs/Day Years [...] encounter Miscellaneous Notes * Telephone Encounter - Wing Arvin RN - 07/31/2024 3:37 PM EST Please advise on lab results so we can inform pt. * Telephone Encounter - Dasha Alfred - 07/31/2024 1:52 PM EST TC from pt requesting call back regarding Results. Type of results: labs and urine Date when done: 07/27/24 Facility: [facility] documented in this encounter Plan of Treatment Upcoming Encounters Date Type Department Care Team (Late st Contact Info) Description 05/10/2025 12:45 PM EST Office Visit [facility] GR DENTAL [address] [place] [address] Bonnie Naik 102 [place] [address] documented as of this encounter Visit Diagnoses Not on filedocumented in this encounter Care Teams Life Skills Instructor Relationship Specialty Start Date End Date Jovanny Mcduffie MD 505 [place] [address] PCP - General Internal Medicine 12/09/23 Jordi Gallo LLD [address] [place] [address] Dentist Dental Welding Machine Operator Electroslag 01/02/23 documented as of this encounter
--- OUTSIDE RECORDS SUMMARY | 2025-01-22 09:11 | XMS_ITS | Encounter Summary ---
Author Organization [employer] Address [address] [place] [address] [place] [address] Care Team Providers Care Host Coordinator Name Role Phone Jordi Gallo LLD Unavailable Elicia Powell MD Primary Care Provider [phone]- [phone] Jovanny Mcduffie MD Primary Care Prov ider [...] EST Office Visit [facility] [address] [place] [address] Bonnie Naik [address] [place] [address] documented as of this encounter Visit Diagnoses Not on filedocumented in this encounter Care Teams Host Coordinator Relationship Specialty Start Date End Date Elicia Powell MD [address] [place] [address] PCP - General Family Medicine 01/02/23 12/03/23 Jovanny Mcduffie MD [address] [place] [address] PCP - General Internal Medicine 12/09/23 Jordi Gallo LLD [address] [place] [address] Dentist Dental Green Pipefitter 01/02/23 documented as of this encounter
--- OUTSIDE RECORDS SUMMARY | 2025-01-22 09:11 | XMS_ITS | Encounter Summary ---
Author Organization [facility] Address [facility] [employer] [facility] [address] [place] [address] Phone Care Team Providers Care Acoustical Carpenter Name Role Phone Elicia Powell MD Primary Care Provider [phone]- [phone] Elicia Powell MD Unavailable [phone] Encounter Details Date Type Department Care Team (Late st Contact Info) Description 12/08/2020 Procedure Pass [facility], [address] [address] Social History Tobacco Use Types Packs/Day Years [...] work, study, or receive health care? No 12/08/2020 Education Answer Date Recorded Are you interested in help w ith more adult education (for example, completing high school, GED, job training, learning the Turkish language, technical skills, or developing parenting skills)? Yes 12/08/2020 Food Answer Date Recorded Within the past 6 months we worried whether our food would run out before we got money to buy more. Never True 12/08/2020 Within the past 6 months the food we bought just didn't last and we didn't have enough money to get more. Never True Residential Stability Answer Date Recor ded What is your housing situation today? I have danielle palomo 12/08/2020 How many times have you move d in the past 12 months? Zero (I did not move) 12/08/2020 06 Are you worried that in t he next 2 months, you may not have your own housing to live in? No 12/08/2020 Paying for Meds Answer Date Recorded Do you have trouble paying for medicines? No 12/08/2020 Paying Utility Bills Answer Date Record ed Do you have trouble paying your heating or elect ricity bill? No 12/08/2020 Transportation Answer Date Recorded Has the lack of transportati on kept you from medical appointments or from getting medications? No 12/08/2020 Unemployment Answer Date Recorded Are you currently unemployed or working on a part-time or temporary basis, and looking for work? No 12/08/2020 Comments No Sex and Gender Information Value Date Recorded Sex Assigned at Female 12/08/2020 9:04 AM EDT Legal Sex Female 9:28 PM EDT Gender Identity Female 12/08/2020 9:04 AM EDT Sexual Orientation Straight 12/08/2020 9: 04 AM EDT documented as of this encounter Plan of Treatment Not on file documented as of this encounter Visit Diagnoses Not on filedocumented in this encounter Additional Health Concerns Assessment Noted Time PHQ-2 Depression Total Score: 0 12/09/19 21 8:56 AM EDT documented as of this encounter Care Teams Acoustical Carpenter Relationship Specialty Start Date End Date Elicia Powell MD [address] [place] [address] [address] [place] [address] PCP - General Family Medicine 09/30/20 Elicia Powell MD [address] [place] [address] Pradeep. [address] [place] [address] Insurance Assigned Provider 12/03/20 documented as of this encounter Additional Source Comments The information contained in this document represents components of the legal health record. It is not the complete legal health record.[facility]
--- OUTSIDE RECORDS SUMMARY | 2025-01-22 09:11 | XMS_ITS | Encounter Summary ---
Author Organization [employer] Address [address] [place] [address] [place] [address] Care Team Providers Care Manager Transport Name Role Phone Jordi Gallo LLD Unavailable Elicia Powell MD Primary Care Provider [phone] Jovanny Mcduffie MD Primary Care Prov ider [...] EST Office Visit [facility] [address] [place] [address] Bonnie Naik 102 [place] [address] documented as of this encounter Visit Diagnoses Not on filedocumented in this encounter Care Teams Manager Transport Relationship Specialty Start Date End Date Elicia Powell MD [address] [place] [address] PCP - General Family Medicine 01/02/23 12/03/23 Jovanny Mcduffie MD [address] [place] [address] PCP - General Internal Medicine 12/09/23 Jordi Gallo LLD [address] [place] [address] Dentist Dental Ecommerce Project Manager 01/02/23 documented as of this encounter
== END 2025-01-22 09:31 | disposition home or self-care (01) ==
LOC: HO.HOS 08:25
PROVIDERS: PCP Internal Medicine; Visit Provider Physician Assistant
DX: M17.0 Bilateral primary osteoarthritis of knee (principal)
CPT/HCPCS: 20610; 99204

== ENCOUNTER → 2025-01-22 08:26 | Outpatient (BNV) | payer MEDICAID, SELFPAY | PROVIDERS: Visit Provider Radiology Diagnostic Radiology | DX: M17.12 Unilateral primary osteoarthritis, left knee (principal) | CPT/HCPCS: 73562 ==

== ENCOUNTER 2025-01-22 09:31 | Outpatient (REF) | payer MEDICAID, SELFPAY ==
--- NOTE | ~2025-01-22 | XR_ITS ---
EXAMINATION: XR KNEE 3 VIEWS LEFT HISTORY: M25.569 - Pain in unspecified knee COMPARISON: Comparison is made with the prior examination of the left knee dated 04/03/2024 FINDINGS: Standing AP views of both knees and additional lateral and sunrise patellar views of the left are submitted. Osseous mineralization is normal. There is no fracture or dislocation. There is severe osteoarthritis of the medial compartments of both knees with joint space narrowing and osteophyte formation. The soft tissues are unremarkable. There is no joint effusion. XR/XR knee LT 3V IMPRESSION: Severe osteoarthritis of the medial compartment. Electronically signed by: Erich Jackson MD 01/22/2025 08:44 AM EDT
--- OUTSIDE RECORDS SUMMARY | 2025-01-26 10:34 | XMS_ITS | Encounter Summary ---
Author Organization [employer] Address 75 [facility] 7 [place] [address] Care Team Providers Care Cleaning Maid Name Role Phone Jordi Gallo LLJuice Unavailable Jovanny Mcduffie MD Primary Care Prov ider Reason for Visit * Reason Onset Date Comments Medication Question 01/22/2025 Encounter Details Date Type Department Care Team ([facility] st Contact Info) Description 01/22/2025 Telephone [facility] MEDICINE [address] [place] [address] Jovanny Mcduffie MD [address] [place], [place] [phone] Medication Question Social History Tobacco Use Types [...] encounter Miscellaneous Notes * Telephone Encounter - Lori Hall RN - 01/22/2025 3:40 PM EDT Anthony Perez, I can make you a telehealth appointment to discuss switching medications with your provider. Let meknow when you are available next week. * Telephone Encounter - Jarrod Floyd - 01/22/2025 1:22 PM EDT TC from pt reports having adverse reaction to Tirzepatide (Mounjaro) 5 MG/0.5ML solution auto-injector. Diarrhea and nausea . Pt would like to be switched to Zepbound since she was not getting these symptoms. documented in this encounter Plan of Treatment Upcoming Encounters Date Type Department Care Team (Late st Contact Info) Description 05/10/2025 12:45 PM EST Office Visit [facility] [address] [place] [phone] Bonnie Naik 102 [place] [address] documented as of this encounter Visit Diagnoses Not on filedocumented in this encounter Care Teams Cleaning Maid Relationship Specialty Start Date End Date Jovanny Mcduffie MD [address] [place] [address] PCP - General Internal Medicine 12/09/23 Jordi Gallo LLD [address] [place] [address] Dentist Dental Certified Orthotist 01/02/23 documented as of this encounter
--- OUTSIDE RECORDS SUMMARY | 2025-01-26 10:35 | XMS_ITS | Encounter Summary ---
Author Organization [employer] Address [address] [place] [address] 7 [place] [address] Care Team Providers Care Shank Piece Tacker Name Role Phone Jordi Gallo LLD Unavailable Elicia Powell MD Primary Care Provider [phone] Jovanny Mcduffie MD Primary Care Prov ider Encounter Details Date Type Department Care Team (Latest Contact Info) Description 07/01/2018 Abstract [facility] CONVERSIONS Dental, Provider, DDS Social History Tobacco [...] Description 05/10/2025 12:45 PM EST Office Visit [facility] GR DENTAL [address] [place] [address] Bonnie Naik [address] [place] [address] documented as of this encounter Visit Diagnoses Not on filedocumented in this encounter Care Teams Shank Piece Tacker Relationship Specialty Start Date End Date Elicia Powell MD [address] [place] [address] PCP - General Family Medicine 01/02/23 12/03/23 Jovanny Mcduffie MD [address] [place] [address] PCP - General Internal Medicine 12/09/23 Jordi Gallo LLD [address] [place] [address] Dentist Dental Guidance And Control System Engineer 01/02/23 documented as of this encounter
--- OUTSIDE RECORDS SUMMARY | 2025-01-26 10:35 | XMS_ITS | Encounter Summary ---
Author Organization [employer] Address [address] [place] [address] [place] [address] Care Team Providers Care Literary Writer Name Role Phone Jordi Gallo LLD Unavailable Elicia Powell MD Primary Care Provider [phone] Jovanny Mcduffie MD Primary Care Prov ider [...] EST Office Visit [facility] [address] [place] [address] Bonnie Naik 102 [place] [address] documented as of this encounter Visit Diagnoses Not on filedocumented in this encounter Care Teams Literary Writer Relationship Specialty Start Date End Date Elicia Powell MD [address] [place] [address] PCP - General Family Medicine 01/02/23 12/03/23 Jovanny Mcduffie MD [address] [place] [address] PCP - General Internal Medicine 12/09/23 Jordi Gallo LLD [address] [place] [address] Dentist Dental Disk Recordist 01/02/23 documented as of this encounter
--- OUTSIDE RECORDS SUMMARY | 2025-01-26 10:35 | XMS_ITS | Encounter Summary ---
Author Organization [employer] Address 75 [facility] 7 [place] [address] Care Team Providers Care Technical Specialist Cytogenetics Name Role Phone Jordi Gallo LLJuice Unavailable Jovanny Mcduffie MD Primary Care Prov ider Reason for Visit * Reason Onset Date Comments Medication Question 07/10/2024 Encounter Details Date Type Department Care Team ([facility] st Contact Info) Description 07/10/2024 Telephone [facility] MEDICINE [address] [place] [address] Jovanny Mcduffie MD [address] [place], [place] [phone] Medication Question Social History Tobacco Use Types [...] need blood work regarding zepbound and diabetes. [phone] documented in this encounter Plan of Treatment Upcoming Encounters Date Type Department Care Team (Late st Contact Info) Description 05/10/2025 12:45 PM EST Office Visit [facility] [address] [place] [address] Bonnie Naik [address] [place] [address] documented as of this encounter Visit Diagnoses Not on filedocumented in this encounter Care Teams Technical Specialist Cytogenetics Relationship Specialty Start Date End Date Jovanny Mcduffie MD 505 [place] [address] PCP - General Internal Medicine 12/09/23 Jordi Gallo LLD [address] [place] [address] Dentist Dental Vehicle Operator Technician 01/02/23 documented as of this encounter
--- OUTSIDE RECORDS SUMMARY | 2025-01-26 10:35 | XMS_ITS | Encounter Summary ---
Author Organization [facility] Address [facility] [place] [address] [address] Phone Care Team Providers Care Medical Records Analyst Name Role Phone Chinyere Murray DO Primary Care Provider [phone]- [phone] Chinyere Murray DO Primary Care Provider [phone]- [phone] Elicia Powell MD Primary Care Provider [phone] Elicia Powell MD Unavailable [phone] Encounter Details Date Type Department Care Team (Late st Contact Info) Description 07/07/2020 Procedure Pass [facility], [address] [phone] Social History Tobacco Use Types Packs/Day Years [...] high school, GED, job training, learning the Polish language, technical skills, or developing parenting skills)? [...] on filedocumented in this encounter Care Teams Medical Records Analyst Relationship Specialty Start Date End Date Chinyere Murray DO [address] [place] [address] [email or web address] PCP - General Family Medicine 10/15/18 07/07/20 Chinyere Murray DO [address] [place] [address] [email or web address] PCP - General Family Medicine 07/08/20 09/29/20 Elicia Powell MD [address] [place] [address] [email or web address] PCP - General Family Medicine 09/30/20 Elicia Powell MD [address] [place] [address] [email or web address] Insurance Assigned Provider 12/03/20 02/02/23 documented as of this encounter Additional Source Comments The information contained in this document represents components of the legal health record. It is not the complete legal health record.[facility]
--- OUTSIDE RECORDS SUMMARY | 2025-01-26 10:35 | XMS_ITS | Encounter Summary ---
Author Organization [facility] Address [facility] [address] [address] Phone Care Team Providers Care Research Program Manager Name Role Phone Elicia Powell MD Primary Care Provider + [phone] Reason for Visit * Reason Comments Medication Refill Encounter Details Date Type Department Care Team ([facility] st Contact Info) Description 06/13/2023 Refill [facility] Podiatry [address] [place] [address] Chelsy Hartmann DPM 10 [facility] [address] [place] [address] [email or web address] Medication Refill Social History Tobacco Use Types [...] high school, GED, job training, learning the Togolese language, technical skills, or developing parenting skills)? 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 Not on file Not on file Not on file documented as of this encounter Plan of Treatment Not on file documented as of this encounter Visit Diagnoses Diagnosis Poorly controlled type 2 diabetes mellitus with neuropathy documented in this encounter Additional Health Concerns Assessment Noted Time PHQ-2 Depression Total Score: 0 02/08/20 23 12:56 PM EDT documented as of this encounter Care Teams Research Program Manager Relationship Specialty Start Date End Date Elicia Powell MD [address] [place] [address] [email or web address] PCP - General Family Medicine 09/30/20 documented as of this encounter Additional Source Comments The information contained in this document represents components of the legal health record. It is not the complete legal health record.[facility]
--- OUTSIDE RECORDS SUMMARY | 2025-01-26 10:35 | XMS_ITS | Encounter Summary ---
Author Organization [employer] Address 75 [facility] 7 [place] [address] Care Team Providers Care Combination Presser Name Role Phone Jordi Gallo LLD Unavailable Jovanny Mcduffie MD Primary Care Prov ider Encounter Details Date Type Department Care Team ([facility] st Contact Info) Description 07/31/2024 Orders Only [facility]C MED & PEDS [address] [place] [address] Jovanny Mcduffie MD 505 [place] [address] Dietary counseling; Exercise counseling Social History Tobacco [...] Description 05/10/2025 12:45 PM EST Office Visit [facility] GR DENTAL [address] [place] [phone] Bonnie Naik 102 [place] [address] documented as of this encounter Visit Diagnoses Diagnosis Dietary counseling Dietary surveillance and counseling Exercise counseling documented in this encounter Care Teams Combination Presser Relationship Specialty Start Date End Date Jovanny Mcduffie MD [address] [place] [address] PCP - General Internal Medicine 12/09/23 Jordi Gallo LLD [address] [place] [address] Dentist Dental Radio Frequency Technician 01/02/23 documented as of this encounter
--- OUTSIDE RECORDS SUMMARY | 2025-01-26 10:35 | XMS_ITS | Encounter Summary ---
Author Organization [employer] Address 75 [facility] 7 [place] [address] Care Team Providers Care Rn Ostomy Name Role Phone Jordi Gallo LLJuice Unavailable Jovanny Mcduffie MD Primary Care Prov ider Reason for Visit * Reason Onset Date Comments Results 07/31/2024 Encounter Details Date Type Department Care Team ([facility] Contact Info) Description 07/31/2024 Telephone [facility] MED & PEDS 505 [place] [address] Jovanny Mcduffie MD [address] [place] [address] Results Social History Tobacco Use Types Packs/Day [...] and urine Date when done: 07/27/24 Facility: [facility] documented in this encounter Plan of Treatment Upcoming Encounters Date Type Department Care Team (Late st Contact Info) Description 05/10/2025 12:45 PM EST Office Visit [facility] GR DENTAL [address] [place] [address] Bonnie Naik [address] [place] [address] documented as of this encounter Visit Diagnoses Not on filedocumented in this encounter Care Teams Rn Ostomy Relationship Specialty Start Date End Date Jovanny Mcduffie MD 505 [place] [address] PCP - General Internal Medicine 12/09/23 Jordi Gallo LLD [address] [place] [address] Dentist Dental Industrial Roof Plumber 01/02/23 documented as of this encounter
--- OUTSIDE RECORDS SUMMARY | 2025-01-26 10:35 | XMS_ITS | Encounter Summary ---
Author Organization [employer] Address [address] [place] [address] 7 [place] [address] Care Team Providers Care Chief Librarian Work With Blind Name Role Phone Jordi Gallo LLD Unavailable Elicia Powell MD Primary Care Provider [phone] Jovanny Mcduffie MD Primary Care Prov ider Encounter Details Date Type Department Care Team (Latest Contact Info) Description 01/26/2020 [facility] Dental, Provider, DDS Social History [...] EST Office Visit [facility] [address] [place] [address] Bonnie Naik [address] [place] [address] documented as of this encounter Visit Diagnoses Not on filedocumented in this encounter Care Teams Chief Librarian Work With Blind Relationship Specialty Start Date End Date Elicia Powell MD [address] [place] [address] PCP - General Family Medicine 01/02/23 12/03/23 Jovanny Mcduffie MD [address] [place] [address] PCP - General Internal Medicine 12/09/23 Jordi Gallo LLD [address] [place] [address] Dentist Dental Product Marketing Executive 01/02/23 documented as of this encounter
--- OUTSIDE RECORDS SUMMARY | 2025-01-26 10:35 | XMS_ITS | Clinical Summary ---
Author Organization [facility] Address [facility] [employer] [address] [address] Phone Care Team Providers Care Inside Sales Director Name Role Phone Elicia Powell MD Primary Care Provider [phone] Allergies No known active allergies Medications clindamycin (CLEOCIN T) 1 % lotion as needed. 8 Active nicotine (NICOTROL) 10 mg inhaler Inhale 1 Cartridge into the lungs as needed for smoking cessation. Inhale to back of throat with frequent continuous puffing. As you puff, nicotine is absorbed into your mouth and throat. 18 each 1 Active Additional Information Patient not taking.Reported on 12/05/2021 ammonium lactate (AMLACTIN) 12 % creamIndication s:Poorly controlled type 2 diabetes mellitus with neuropathy Apply topically daily. Use as a moisturizing cream to the feet. Use daily. 385 g 3 3 Active aspirin 81 MG EC tablet Take 81 mg by mouth daily. Active doxycycline monohydrate (MONODOX) 100 MG capsuleIndicati ons:Hidradeniti s suppurativa TAKE 1 CAPSULE(100 MG) BY MOUTH DAILY 30 capsule 5 3 Active glipiZIDE (GLUCOTROL XL) 10 MG 24 hr tabletIndicatio ns:Poorly controlled type 2 diabetes mellitus with neuropathy TAKE 1 TABLET(10 MG) BY MOUTH DAILY 90 tablet 4 Active lisinopril (PRINIVIL,ZESTR IL) 2.5 MG tablet TAKE 1 TABLET(2.5 MG) BY MOUTH DAILY 90 tablet 4 Active atorvastatin (LIPITOR) 40 MG tabletIndicatio ns:Hypercholest erolemia TAKE 1 TABLET(40 MG) BY MOUTH DAILY 90 tablet 4 Active Active Problems Problem Noted Date Diagnosed Date Type 2 diabetes mellitus with microalbuminuria 0 07/04/2023 Routine medical exam 06/07/2021 Assessment & Plan (2023 9:08 AM EDT): 47 y.o. female here for complete physical exam. Referred to physical therapy for her painful hamstring and balance concerns. I told Ana that I very much believe that an exercise will be beneficial for her and that the only way to get stronger and faster is to start out slow and work-up from there. I am hopeful that the physical therapist can help her devise an exercise plan that will be safe and effective for her but this is critical for her health and certainly part of the reason why she struggles to lose weight. I also think a GLP-1 RA is likely to be helpful for weight loss. Her diabetes control is excellent but weight loss will be beneficial for her health in many ways and we agreed to try again. I explained that since her insurance requires a trial of 2 that are not Ozempic then I cannot prescribe Ozempic today but as best I can tell from her insurance paperwork, Trulicity appears to be covered and for some of my patients that has been quite effective in weight loss as well. I explained that most people experience some nausea in starting these medicines and most people find that improves with time. My intent earlier and offering a nausea medicine was not that she would take it indefinitely but that it would help her get through the first days or weeks of getting used to the medication and should she need that with Trulicity she is welcome to reach out to my office. She is unwilling to do daily injections but Trulicity is a weekly medicine and I hope this will meet her needs. If she tolerates it well and finds it effective then we can probably take her off her glipizide but we agreed to wait and see how she does on it before we take that step. She reports she is up-to-date on her eye exams. She declines a referral to a clothing trades workers. USPSTF A&B recommendations reviewed with pt. BP: WNL BMI: Body mass index is 53.3 kg/m . and we are trying medication as noted. Encourage exercise as noted. Pap smears for people age 21-65 with a cervix: Not due until 2024 STI testing for teens and adults at risk, and at least one lifetime HIV and hep C test: Done previously and normal/negative per pt PrEP for persons at high risk of HIV: N/A plans in the next year: long h/o infertility. has seen CORPORATE TRAVEL AGENT, but is likely perimenopausal with irregular periods Depression and anxiety screens: Negative IPV screen in women of reproductive age (or others PRN): Negative Smoking cessation counseling: counseled to quit. contemplative Alcohol use counseling: N/A LTBI screening in people at increased risk: Done previously and normal/negative BrCa screening in women/AFAB people at risk: 7-Question Family History Screening Tool Vaccinations: declines flu & COVID boosters Last dental visit: up to date Lipid screening to consider statin for primary prevention for adults 40-75, or at younger ages with risk factors: will do to monitor statin This SmartLink has been updated to reference the ASCVD 2013 equation and not the 2018 equations. The 10-year ASCVD risk score (Jonatan LOPEZ, et al., 2019) is: 8.3% Values used to calculate the score: Age: 47 years Sex: Female Is Non- : No Diabetic: Yes Tobacco smoker: Yes Systolic Blood Pressure: 124 mmHg Is BP treated: No HDL Cholesterol: 32 mg/dL Total Cholesterol: 160 mg/dL Breast cancer risk reducing medication in people with breasts 35 and older at risk: N/A Aspirin for primary prevention for adults 40-59 with risk >10%, but no older: N/A Breast cancer screening with biennial mammography for people with breasts 50 and older, and can consider for 40-49: will schedule Colonoscopy for adults 45-75, and can consider at older ages: Referred to [facility] Assessment & Plan (06/07/2021 2:12 PM EST): 46 y.o. female here for complete physical exam. A1c today is 7.8. Our goal for Ana is less than 7. As she prefers Jardiance, we will discontinue the metformin and increase her Jardiance dose from 10 to 25 mg. I encouraged her to schedule her eye exam. She is up-to-date on dental visits. She has had a foot exam in the past year. It sounds like her headaches are due to mild hypoglycemia. I encouraged her to get on a more regular eating schedule. Since she already has the structure in place for her [id number], there is no reason they cannot simply eat together. USPSTF A&B recommendations reviewed with pt. BP: WNL BMI: Body mass index is 55.38 kg/m ., Recommend increasing exercise - get out and take a walk- and we will see if increasing Jardiance will help with this as well Pap smears for people age 21-65 with a cervix: not due until 2024 STI testing for teens and adults at risk, and at least one lifetime HIV and hep C test: Done previously and normal/negative per pt PrEP for persons at high risk of HIV: N/A plans in the next year: Planning or actively trying: seeing CORPORATE TRAVEL AGENT for infertility although she is aware the odds are against her at this age Depression screen: Negative IPV screen in women of reproductive age (or others PRN): Negative Smoking cessation counseling: discussed, interested in quitting, does have Nicotrol, wants to start this up again soon Alcohol use counseling: N/A LTBI screening in people at increased risk: will do, had a brief stay in retirement in 2003 BrCa screening in women/AFAB people at risk: 7-Question Family History Screening Tool negative Vaccinations: TD today, otherwise up to date Last dental visit: up to date Lipid screening to consider statin for primary prevention for adults 40-75, or at younger ages with risk factors: on a statin and at goal Breast cancer risk reducing medication in people with breasts 35 and older at risk: N/A Breast cancer screening with biennial mammography for people with breasts 50 and older, and can consider for 40-49: up to date Colonoscopy for adults 45-75, and can consider at older ages: Referred to [facility] Irregular menses 01/18/2021 Assessment & Plan (01/18/2021 12:42 PM EDT): Discussed with patient that her current menstrual changes are not abnormal for her age and appear consistent with perimenopause. If she should continue with very spotty bleeding as noted in November, further work-up may be indicated due to increased risk of BMI and hyperplasia/carcinoma endometrium. Secondary female infertility 12/12/2020 Assessment & Plan (12/12/2020 1:03 PM EDT): Both Ana and her partner have had [...] referring her to obstetrics to pursue this. Type 2 diabetes mellitus wit h diabetic neuropathy, without long-term current use of insulin 05/05/2019 Assessment & Plan (07/04/2023 2:14 PM EST): A1C has been well controlled recently so [...] address this with dietary changes. Handout provided. Assessment & Plan (05/01/2022 3:19 PM EST): A1c shows significant improvement with addition of glipizide and, no doubt, dietary changes have also contributed. She is tolerating the glipizide well and that plus Jardiance seem to be a good combination for glycemic control but I agree with her that a GLP 1 RA would be a good choice for meeting her weight goals, too. This would be beneficial for many other potential health outcomes, starting with her knee pain. I explained that Wegovy and Ozempic are exactly the same medicine under different brand names. What ever it is called, it is an excellent medicine for weight loss, and is also good for glycemic control. I also explained that there are no effective medicines for any conditions that have no side effects. In the case of GLP-1 RA's, common side effects include GI intolerance which typically improves with use, and sometimes a mild skin rash. Rare but worrisome side effects include thyroid cancer, pancreatitis, and possibly pancreatic cancer. She is already aware, semaglutide is backordered everywhere due to a manufacturing shortage. Other, similar options that I could prescribe at this time include dulaglutide, which offers similar glycemic control and good weight loss, although probably not as good as semaglutide, or the brand-new tirzepatide, which has an additional mechanism of action so may provide better glycemic control, and is equally as good on weight loss but may not yet be on the [facility] formulary. I do not know for sure. I am certainly willing to try in terms of the required paperwork. She wants to know if she can start on 1 of those and then transition to Ozempic and I do not recommend that since she is so well controlled from a glycemic standpoint on her current medicines. We agreed to just wait until Ozempic becomes available again. When that happens, I will ask her to stop taking the glipizide, since she has found the Jardiance to be helpful in weight maintenance. Regardless of whether she decides to pursue bariatric surgery I would of course like her to quit smoking and she is really struggling to find any motivation to change her health habits. We discussed that if she does not, she is most certainly headed down the road toward more serious endorgan damage than just knee pain. I am concerned to find that she has neuropathy in the feet and has completely obliterated the arch in the right foot and starting to lose the normal architecture in the left foot. I worry that this may represent Charcot foot, although she has no pain at rest or with walking, and I am referring her to podiatry for further evaluation. As to the kidneys, she is due for lab work which I have ordered today. We had a long conversation about the value vaccines and she continues to decline the flu shot but accepted a pneumonia vaccine today Assessment & Plan (11/02/2021 9:19 AM EDT): We spoke today about the risk of end organ damage from poorly controlled diabetes: HI, CVA, CKD, blindness, vulnerability to infection. The Jardiance has led to modest weight loss but is not sufficient for glucose control. There is much room for improvement in diet: MUCH less candy, no soda, no sugar in coffee, more fruits/veg, no more chips... Ana does not feel it would be helpful to see a clothing trades workers because she has done so several times in the past and I know what to do, just has a hard time doing it. I want her to resume metformin at full dose 2 g daily (OK to titrate up by 1 pill q week if side effects present) and any of the above noted dietary changes would be useful as well. She is willing to at least meet with our bariatric surgeon to discuss a procedure, which I explained might cure her diabetes and would surely reduce the stress on her knees and improve her mobility. I continue to encourage her to exercise, although this has not interested her much. Assessment & Plan (12/12/2020 1:01 PM EDT): Patient was at goal on Metformin and Jardiance but has stopped her Jardiance as she did not feel she needed it. She was tolerating it well. We will check an A1c today and she understands that she may need to resume using the medicine if it is over 7. She is also tolerating her new medication gabapentin well but without relief from neuropathic pain. We discussed that the effective dose range is quite wide and we will try increasing the dose. Hypercholesterolemia 09/15/2018 Assessment & Plan (12/12/2020 1:01 PM EDT): Previously stable on a statin but needs monitoring. Smoker 09/15/2018 Hidradenitis suppurativa 10/23/2017 Assessment & Plan (03/04/2020 2:28 PM EDT): This likely represents a hidradenitis lesion. Is no evidence of infection. Pain is getting much better and at this point I really recommend any treatment. If she continues to have pain from the lesion, she could be referred to surgery for excision. Morbid obesity with body mas s index (BMI) of 50.0 to 59.9 in adult 06/05/2017 Assessment & Plan (12/05/2021 12:27 PM EDT): This is a 46-year-old lady with type 2 diabetes who has a BMI greater than 50 and is interested in weight loss surgery. We have discussed laparoscopic sleeve gastrectomy and Philippe-en-Y gastric bypass in detail and I believe the patient would benefit most from sleeve gastrectomy. I have placed her on a eating plan which will include a protein shake or bar at 9 AM and 3 PM daily. She will consume 6 ounces of protein with a small salad or vegetables and not more than 2 tablespoons of an Vietnamese or vinaigrette dressing at 12 PM and 6 PM. At the 6:00 meal she may have a half a cup of carbohydrate. Patient has option of consuming a piece of fruit which may be a pair, 2 kiwi's, an apple at 8 PM. Patient may substitute a Divehi yogurt or cottage cheese for either of the protein shake or bar options. I have recommended the patient start with 20 minutes of cardiovascular exercise at least 3-4 times weekly. I have recommended sit and be fit exercises and also walk away the pound videos from YouTube to start with. Exercises cumulative so the patient may break of exercise into increments of 2 of 10 minutes each. Patient must consume at least 64 ounces of water on a daily basis. She may not drink coffee or any other caffeinated beverage unless she has consume 64 ounces of water daily. Patient must lose 10% of her current weight which will be 33 pounds. Goal weight at the time of submission to the insurance company will be 295.2 pounds. Patient will continue current medications as reviewed. She is not stable and is considered obese. I have ordered blood work in addition to chest x-ray and EKG and H. pylori studies. Patient is currently smoking and is ready to quit. I performed smoking cessation counseling. Patient is working with her primary care physician to quit smoking. She was told she must quit smoking prior to submission for surgery and must have nicotine studies including metabolites that are negative prior to submission to the insurance company. Patient must avoid for 16 to 24 months postoperatively. I have ordered nutritional counseling with the dietitian as well as behavioral health clearance. Patient will need medical clearance from her primary care doctor prior to submission to the insurance company as well. I will follow with the patient in the office in 4 weeks timeframe. I spent 64 minutes with this patient which included documenting. 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 Has not been able to conceive since removal of IUD in 2002 and with current partner x 19 yrs. Low chance of conception and high risk of failure/SAB at age 45 reviewed. Patient is only interested in spontaneous conception. States couple is not interested in reproductive technology. Patient wonders if she may have tubal infertility. Advised patient and HSG would not be indicated unless she is possibly considering reproductive technology, which she declines. Risk factors for discussed: AMA, type II DM, hemoglobin A1c 7, on cholesterol med and tetracycline, smokes 1 pack/day, BMI 56. Benefits of risk modification prior to reviewed. Encounters Date Type Department Care Team Description 01/04/2025 Patient Outreach [facility] [address] [place] [address] Anna Mejia Diabetes from Last 3 Months Immunizations Immunization Administration Dates Next Due COVID-19 (Pre-03/18) Pfizer Vaccine, mRNA, PF 09/16/2020,08/24/2020 Hepatitis B Adult 12/26/2012,07/25/2012,06/19/19 13 MMR 07/25/2012 Pneumococcal conjugate PCV20 05/01/2022 Td (adult),2 Lf Tetanus Toxo id, PF, Adsorbed 06/05/2021 Tdap 05/04/2010 Family History Medical History Relation Comments Alcohol use disorder Brother 1 Alcohol use disorder Brother 2 Alcohol use disorder Brother 3 Alcohol use disorder Father Hypertension Father Alcohol use disorder Mother Hernia Mother Cancer Paternal Grandmother Alcohol use disorder Sister Breast cancer Neg Hx Colon cancer Neg Hx Coronary artery disease Neg Hx Ovarian cancer Neg Hx Stroke Neg Hx Relation Status Comments Brother 1 Alive Brother 2 Alive Brother 3 Alive Father Alive Mother Alive Paternal Grandmother Sister Alive Social History Tobacco Use Types Packs/Day Years Used Date Smoking Tobacco: Every Day Cigarettes 1 41.7 Started: 1983 Smokeless Tobacco: Never Tobacco Cessation:Ready to Q uit: Not Asked; Counseling Given: Not Answered Alcohol Use Standard Drinks/Week Comments Not Currently 0 (1 standard drink = 0.6 oz pur e alcohol) Child or Family Care Answer Date Record ed Do you have problems with on e of the following making it difficult for you to work, study, or receive health care? No 11/19/2022 Education Answer Date Recorded Are you interested in more education? Not on heath e 11/25/2024 Are you concerned about learning? Not on file 11/25/2024 No 11/25/2024 No 11/25/2024 Food Answer Date Recorded Within the past [...] 12/08/2020 Digital Access Answer Date Recorded No 11/25/2024 No 11/25/2024 Reliable internet access at home? Not on file 11/25/2024 Device with a working camera? 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 Not on file Not on file Not on file Last Filed Vital Signs Vital Sign Reading Time Taken Comments Blood Pressure 125/85 07/03/2023 10:41 AM EST Pulse 77 07/03/2023 10:12 AM EST Temperature 36.8 C (98.3 F) 02/07/2023 12:57 PM EDT Respiratory Rate - - Oxygen Saturation 97% 07/03/2023 10: 12 AM EST Inhaled Oxygen Concentration - - Weight 143.2 kg (315 lb 12.8 oz) 2023 10:12 AM EST Height 166.6 cm (5' 5.59 ) 07/03/2023 1 0:12 AM EST Body Mass Index 51.61 07/03/2023 10:12 AM EST Plan of Treatment Health Maintenance Due Date Last Done Comments SMOKING Hx and SMOKELESS TOBACCO SCREENING 02/09/1988 HIV ONE-TIME SCREENING (18-65 YEARS) 1993 COLOGUARD 02/09/2020 COLONOSCOPY 02/09/2020 COLORECTAL CANCER SCREENING 02/09/2020 FIT TEST 02/09/2020 FOBT 02/09/2020 SIGMOIDOSCOPY 02/09/2020 VIRTUAL COLONOSCOPY 02/09/2020 MAMMOGRAM 02/16/2023 02/16/2021, 03/08/2020, 02/25/2020, Additional history exists DIABETIC EYE EXAM 05/29/2023 05/29/2022, 01/09/2019 BLOOD PRESSURE 01/01/2024 07/03/2023 HEMOGLOBIN A1C 01/01/2024 07/03/2023, 01/25, 02/07/2023, Additional history exists CREATININE LEVEL 2024 02/07/2023, , 12/08/2020, Additional history exists DEPRESSION SCREENING 2024 02/07/2023 POTASSIUM LEVEL 2024 02/07/2023, 04/26, 12/08/2020, Additional history exists INFLUENZA VACCINE (#1) 2024 COVID-19 VACCINE ( season) 2025 03/18/2021, 09/16/2020, 08/24/2020 PAP SMEAR 02/07/2025 2020, 2020 Adult Td,Tdap Booster 06/05/2031 06/05/2021, 010 HEPATITIS C SCREENING Completed 12/08/2020, 021 PNEUMOCOCCAL VACCINES (0-49 years) Completed 05/01/2022 HEPATITIS A VACCINES Aged Out No long er eligible based on patient's age to complete this topic HIB VACCINES Aged Out No longer eligi ble based on patient's age to complete this topic MENINGOCOCCAL VACCINES (ACWY) Aged Out No longer eligible based on patient's age to complete this topic MENINGOCOCCAL VACCINES (B) Aged Out N o longer eligible based on patient's age to complete this topic Medical Devices Not on file Procedures Procedure Name Priority Date/Time Associated Diagnosis Comments POCT HEMOGLOBIN A1C Routine 07/03/2023 1 0:53 AM EST Type 2 diabetes mellitus with diabetic neuropathy, without long-term current use of insulin BASIC METABOLIC PANEL Routine 02/07/2023 2:05 PM EDT Poorly controlled type 2 diabetes mellitus with neuropathy DIABETES EYE EXAM FOR RESULT ENTRY ONLY Routine 05/29/2022 BI MAMMOGRAM DIAGNOSTIC WITH TOMOSYNTHESIS WITH CAD (BILATERAL) Routine 02/16/2021 2:39 PM EDT Abnormal mammogram of both breasts HEPATITIS C ANTIBODY, QUALITATIVE Routine 12/08/2020 12:24 PM EDT Annual physical exam PAP TEST Routine 2020 12:00 AM EDT from Last 3 Months or Most Recently Relevant to Health Maintenance Results * (ABNORMAL) POCT Hemoglobin A1c (07/03/2023 10:53 AM EST) Hemoglobin A1c 6.1(A) 4.2 - 5.8 % [facility] Other 07/03/2023 10:5 3 AM EST us Elicia Powell MD POINT OF CARE TEST ORDERABLE S Final Result Performing Organization Address City/State/[facility] Co de Phone Number [facility] [address] * Basic metabolic panel (02/07/2023 2:05 PM EDT) SODIUM 136 133 - 146 mmol/L [facility] CHLORIDE 100 96 - 108 mmol/L [facility] POTASSIUM 4.5 3.3 - 5.1 mmol/L [facility] CO2 27 21 - 35 mmol/L [facility] BUN 16 6 - 19 mg/dL [facility] CREATININE 0.70 0.5 - 1.5 mg/dL [facility] GLUCOSE 99 70 - 99 mg/dL [facility] CALCIUM 9.5 8.4 - 10.3 mg/dL [facility] EGFR 107 >59 mL/min/1.7 3m2 [facility] Comment:Estimated glomerular filtration rate calculated using the CKD-EPI refit equation. ANION GAP 14 10 - 20 mmol/L [facility] Blood 02/07/2023 2:05 PM EDT 02/07/2023 2:17 PM EDT Elicia Powell MD LAB BLOOD ORDERABLES Final R esult [facility] [address] [place] [address] * DIABETES EYE EXAM FOR RESULT ENTRY ONLY (05/29/2022) Historical Provider HEALTH MAINTENANCE Final Result * BI MAMMOGRAM DIAGNOSTIC WITH TOMOSYNTHESIS WITH CAD (BILATERAL) (02/16/2021 2:39 PM EDT) Anatomical Region Laterality Modality Breast Left, Breast Right, Breast Bilateral Bila teral Mammography 02/16/2021 2:43 PM EDT Impressions 02/16/2021 2:55 PM EDT Stable appearance of the breasts including previously noted lateral clustered punctate microcalcifications. No findings suspicious for malignancy have developed. Screening mammography in one year is recommended. The results were relayed to the patient. BI-RADS CATEGORY: 2 - Benign finding. DENSITY: The breast tissue is heterogeneously dense, which could obscure a lesion on mammography. LEFT RECOMMENDATION DUE DATE: 12 Months Left Mammography Screening RIGHT RECOMMENDATION DUE DATE: 12 Months Right Mammography Screening Narrative 02/16/2021 2:55 PM EDT COMPARISON: 02/15/2020 and 07/28/2020. Bilateral 3-D tomosynthesis with 2-D reconstructions in the CC and MLO projection plus additional CC and true lateral magnified views of both breasts were obtained. Computer-aided detection system also utilized. The previously noted bilateral calcifications are unchanged. These are almost certainly benign. No suspicious new clusters of calcifications or change in morphology. No new mass, asymmetry, or significant architectural distortion have become apparent on either side. Procedure Note Alejandro Alas MD - 02/16/2021 COMPARISON: 02/15/2020 and 07/28/2020. Bilateral 3-D tomosynthesis with 2-D reconstructions in the CC and MLOprojection plus additional CC and true lateral magnified views of bothbreasts were obtained. Computer-aided detection system also utilized. The previously noted bilateral calcifications are unchanged. These arealmost certainly benign. No suspicious new clusters of calcifications or change in morphology. No new mass, asymmetry, or significant architectural distortion havebecome apparent on either side. IMPRESSION: Stable appearance of the breasts including previously noted lateralclustered punctate microcalcifications. No findings suspicious formalignancy have developed. Screening mammography in one year isrecommended. The results were relayed to the patient. BI-RADS CATEGORY: 2 - Benign finding. DENSITY: The breast tissue is heterogeneously dense, which could obscurea lesion on mammography. LEFT RECOMMENDATION DUE DATE: 12 Months Left Mammography Screening RIGHT RECOMMENDATION DUE DATE: 12 Months Right Mammography Screening Elicia Powell MD IMG MG EXAMS Final Result * Hepatitis C antibody, qualitative (12/08/2020 12:24 PM EDT) HCV NON-REACTIV E NON-REACTI VE [facility] Blood 12/08/2020 12:2 4 PM EDT 12/08/2020 12:28 PM EDT Chinyere Murray DO LAB BLOOD ORDERABLES Final Result [address] [address] * Pap Smear (2020 12:00 AM EDT) 2020 02/09/2020 8:2 7 AM EDT Narrative SEE NARRATIVE - 02/15/2020 10:15 AM EDT [address] [address] Performance Improvement Director: Lorrie Harris MD CORPORATE TRAVEL AGENT Cytology Report FINAL DIAGNOSIS A. PAP SMEAR (SUREPATH) CE: SPECIMEN ADEQUACY: Satisfactory for evaluation; transformation zone present. Evaluation limited by thickness of cellular specimen. INTERPRETATION: NEGATIVE FOR INTRAEPITHELIAL LESION OR MALIGNANCY. Electronically Signed Out By: MORENITA Blackman(ASCP) The Pap test is a screening test primarily for squamous cancers and precursors and has associated false-negative and false-positive results. New technologies such as liquid-based preparations may decrease but will not eliminate all false-negative results. Regular sampling and follow-up of unexplained clinical signs and symptoms are recommended to minimize false negative results. PROCEDURES/ADDENDA HPV Testing (Requested) Ordered Date: 02/09/2020 A. PAP SMEAR (SUREPATH) CE: Human Papilloma Virus Test Negative for high-risk human papillomavirus types 16, 18, 45 and the Other high risk probe set (Includes 31, 33, 35, 39, 51, 52, 56, 58, 59, 66, 68) by [employer] HR-HPV analysis. Clinical correlation is advised. This HPV test was performed at [facility], [address] [place] [address]. This test has been FDA approved for SurePath cervical cytology specimens. The accuracy and precision of this test for all other specimen sources has been verified in the Cytopathology Laboratory of the [facility] and has not been cleared or approved by the U.S. Food and Drug Administration. Clinical correlation is advised. CLINICAL HISTORY Date of Last Menstrual Period: Not Provided Menstrual History: Sadie-Menopausal Other Clinical Conditions: Screening Pap SPECIMEN SOURCE A: PAP SMEAR (SUREPATH) CE Patient Name: ANA ARMIJO : 1975 (Age: 45) Sex: F Institution: [facility] Location: [facility] Date of Collection: 2020 Date of Reported: 02/15/2020 10:15 Results to: Chinyere Murray DO us Chinyere Murray DO CYTOLOGY ORDERABLES Final Result SEE NARRATIVE from Last 3 Months or Most Recently Relevant to Health Maintenance Insurance [address] [id number] Care Teams Inside Sales Director Relationship Specialty Start Date End Date Elicia Powell MD [address] [place] [phone] [email or web address] PCP - General Family Medicine 09/30/20 Additional Source Comments The information contained in this document represents components of the legal health record. It is not the complete legal health record.[facility]
--- OUTSIDE RECORDS SUMMARY | 2025-01-26 10:35 | XMS_ITS | Encounter Summary ---
Author Organization [employer] Address [address] [facility] 7 [place] [address] Care Team Providers Care Assembling Fabricator Name Role Phone Jordi Gallo LLJuice Unavailable Jovanny Mcduffie MD Primary Care Prov ider Reason for Visit * Reason Onset Date Comments Nurse Triage 12/20/2023 Med Refill 12/20/2023 Encounter Details Date Type Department Care Team (Late st Contact Info) Description 12/20/2023 Telephone [facility] MEDICINE [address] [place] [address] Jovanny Mcduffie MD [address] [place] [address] Nurse Triage; Med Refill Social History Tobacco [...] Description 05/10/2025 12:45 PM EST Office Visit [facility] GR DENTAL [address] [place] [address] Bonnie Naik [address] [place] [address] documented as of this encounter Visit Diagnoses Not on filedocumented in this encounter Care Teams Assembling Fabricator Relationship Specialty Start Date End Date Jovanny Mcduffie MD [address] [place] [address] PCP - General Internal Medicine 12/09/23 Jordi Gallo LLD [address] [place] [address] Dentist Dental Director Of Nursing 01/02/23 documented as of this encounter
--- OUTSIDE RECORDS SUMMARY | 2025-01-26 10:35 | XMS_ITS | Encounter Summary ---
Author Organization [email or web address] Address [address] [facility] 7 [place] [address] Care Team Providers Care Hvac R Instructor Name Role Phone Jordi Gallo LLJuice Unavailable Jovanny Mcduffie MD Primary Care Prov ider Reason for Visit * Reason Onset Date Comments Medication Question 07/17/2024 Encounter Details Date Type Department Care Team ([facility] st Contact Info) Description 07/17/2024 Telephone [facility] MEDICINE [address] [place] [address] Jovanny Mcduffie MD [address] [place], [place] [phone] Medication Question Social History Tobacco Use Types [...] on the Same one. Contact pt at [phone] documented in this encounter Plan of Treatment Upcoming Encounters Date Type Department Care Team ([facility] st Contact Info) Description 05/10/2025 12:45 PM EST Office Visit [facility] GR DENTAL [address] [place] [phone] Bonnie Naik [address] [place] [address] documented as of this encounter Visit Diagnoses Not on filedocumented in this encounter Care Teams Hvac R Instructor Relationship Specialty Start Date End Date Jovanny Mcduffie MD [address] [place] [phone] PCP - General Internal Medicine 12/09/23 Jordi Gallo LLD [address] [place] [address] Dentist Dental Rice Dryer Mechanic 01/02/23 documented as of this encounter
--- OUTSIDE RECORDS SUMMARY | 2025-01-26 10:35 | XMS_ITS | Encounter Summary ---
Author Organization [employer] Address [address] [place] [address] [place] [address] Care Team Providers Care Obstetrics Nurse Practitioner Name Role Phone Jordi Gallo LLD Unavailable Elicia Powell MD Primary Care Provider [phone] Jovanny Mcduffie MD Primary Care Prov ider [...] EST Office Visit [facility] [address] [place] [address] Bonnie Naik [address] [place] [address] documented as of this encounter Visit Diagnoses Not on filedocumented in this encounter Care Teams Obstetrics Nurse Practitioner Relationship Specialty Start Date End Date Elicia Powell MD [address] [place] [phone] PCP - General Family Medicine 01/02/23 12/03/23 Jovanny Mcduffie MD [address] [place] [address] PCP - General Internal Medicine 12/09/23 Jordi Gallo LLD [address] [place] [address] Dentist Dental Transportation Services Representative 01/02/23 documented as of this encounter
--- OUTSIDE RECORDS SUMMARY | 2025-01-26 10:35 | XMS_ITS | Encounter Summary ---
Author Organization [employer] Address [address] [facility] [address] [place] [address] Care Team Providers Care Hammer Adjuster Name Role Phone Jordi Gallo LLJuice Unavailable Jovanny Mcduffie MD Primary Care Prov ider Encounter Details Date Type Department Care Team (Late st Contact Info) Description 09/22/2024 Orders Only [facility] MED & PEDS [address] [place], [place] [phone] Calli Garcia Social History Tobacco Use Types [...] Description 05/10/2025 12:45 PM EST Office Visit [facility] GR DENTAL [address] [place] [phone] Bonnie Naik [address] [place] [address] documented as of this encounter Procedures Procedure Name Priority Date/Time Associated Diagnosis Comments HPV MRNA E6/E7 REFLEX TO HPV 16, 18/45 Routine 04/07/2024 12:00 AM EST documented in this encounter Results * HPV mRNA E6/E7 w/Reflex to HPV Genotypes 16, 18/45 (04/07/2024 12:00 AM EST) us Historical Provider LAB CYTOLOGY ORDERABLES F inal Result [facility] [address] [place] [phone] documented in this encounter Visit Diagnoses Not on filedocumented in this encounter Care Teams Hammer Adjuster Relationship Specialty Start Date End Date Jovanny Mcduffie MD [address] [place] [address] PCP - General Internal Medicine 12/09/23 Jordi Gallo LLD [address] [place] [address] Dentist Dental Chimney Builder Helper 01/02/23 documented as of this encounter
--- OUTSIDE RECORDS SUMMARY | 2025-01-26 10:35 | XMS_ITS | Encounter Summary ---
Author Organization [facility] Address [facility] [address] [place] [address] Phone Care Team Providers Care Safety Counselor Name Role Phone Elicia Powell MD Primary Care Provider [phone] Elicia Powell MD Unavailable [phone] Encounter Details Date Type Department Care Team (Late st Contact Info) Description 12/08/2020 Procedure Pass [facility], [address] [address] Social History Tobacco Use Types Packs/Day Years [...] high school, GED, job training, learning the [place] language, technical skills, or developing parenting skills)? [...] documented as of this encounter Care Teams Safety Counselor Relationship Specialty Start Date End Date Elicia Powell MD [address] [place] [address] [address] [place] [address] PCP - General Family Medicine 09/30/20 Elicia Powell MD [address] [place] [address] [address]ep[address] [place] [address] Insurance Assigned Provider 12/03/20 documented as of this encounter Additional Source Comments The information contained in this document represents components of the legal health record. It is not the complete legal health record.[facility]
--- OUTSIDE RECORDS SUMMARY | 2025-01-26 10:35 | XMS_ITS | Encounter Summary ---
Author Organization [employer] Address [address] [facility] 7 [place] [address] Care Team Providers Care Professor Of Legal Studies Name Role Phone Jordi Gallo LLD Unavailable Jovanny Mcduffie MD Primary Care Prov ider Encounter Details Date Type Department Care Team ([facility] st Contact Info) Description 12/08/2024 Orders Only [facility] CHC MED & PEDS [address] [place] [address] Jovanny Mcduffie MD [address] [place] [address] Social History Tobacco Use Types Packs/Day Years [...] Description 05/10/2025 12:45 PM EST Office Visit [facility] GR DENTAL [address] [place] [phone] Bonnie Naik [address] [place] [address] documented as of this encounter Visit Diagnoses Not on filedocumented in this encounter Care Teams Professor Of Legal Studies Relationship Specialty Start Date End Date Jovanny Mcduffie MD [address] [place] [address] PCP - General Internal Medicine 12/09/23 Jordi Gallo LLD [address] [place] [address] Dentist Dental Tobacco Drying Machine Operator 01/02/23 documented as of this encounter
--- OUTSIDE RECORDS SUMMARY | 2025-01-26 10:35 | XMS_ITS | Encounter Summary ---
Author Organization [facility] Address [facility] [employer] [address] [address] Phone Care Team Providers Care Control Cabinet Assembler Name Role Phone Chinyere Murray DO Primary Care Provider [phone] Chinyere Murray DO Primary Care Provider [phone]- [phone] Elicia Powell MD Primary Care Provider [phone] Elicia Powell MD Unavailable [phone] Encounter Details Date Type Department Care Team (Late st Contact Info) Description 2020 Procedure Pass [facility], [address] [phone] Social History Tobacco Use Types Packs/Day Years [...] high school, GED, job training, learning the Urdu language, technical skills, or developing parenting skills)? [...] on filedocumented in this encounter Care Teams Control Cabinet Assembler Relationship Specialty Start Date End Date Chinyere Murray DO [address] [place] [address] [email or web address] PCP - General Family Medicine 10/15/18 07/07/20 Chinyere Murray DO [address] [place] [phone] [email or web address] PCP - General Family Medicine 07/08/20 09/29/20 Elicia Powell MD [address] [place] [address] [email or web address] PCP - General Family Medicine 09/30/20 Elicia Powell MD [address] [place] [address] [email or web address] Insurance Assigned Provider 12/03/20 02/02/23 documented as of this encounter Additional Source Comments The information contained in this document represents components of the legal health record. It is not the complete legal health record.[facility]
--- OUTSIDE RECORDS SUMMARY | 2025-01-26 10:35 | XMS_ITS | Clinical Summary ---
Author Organization [employer] Address 75 [facility] 7t [place] [address] Care Team Providers Care Inverter And Clipper Name Role Phone Jordi Gallo LLJuice Unavailable [...] (11/09/2024 10:25 AM EDT): Fam hx of [place], she has several risk factors, had a [...] PCP follow up 6 months ago, in [facility] No er visit on the past year [...] Encounters Date Type Department Care Team Description 01/22/2025 Telephone [facility] [address] [place], [place] [phone] Jovanny Mcduffie MD Medication Question 01/05/2025 1:00 PM EDT Telemedicine [facility] [address] [place] [address] Jovanny Mcduffie MD Type 2 diabetes mellitus with microalbuminuria ([facility]) (Primary Dx) 01/05/2025 Travel 01/01/2025 Refill [facility] [address] [place] [address] Jovanny Mcduffie MD 12/15/2024 Refill [facility] [address] [place] [address] Jovanny Mcduffie MD 12/08/2024 Telephone [facility] [address] [place] [address] Jovanny Mcduffie MD 12/08/2024 Orders Only [facility] [address] [place] [address] Jovanny Mcduffie MD 12/08/2024 Telephone [facility] [address] [place] [address] Jovanny Mcduffie MD 12/01/2024 Telephone [facility] [address] [place] [address] Jovanny Mcduffie MD 11/30/2024 1:30 PM EDT Office Visit [facility] [address] [place] [address] Jovanny Mcduffie MD Type 2 diabetes mellitus with microalbuminuria (CMS/HCC) (Primary Dx) 11/30/2024 Travel 11/09/2024 9:30 AM EDT Telemedicine [facility] [address] [place] [address] Jovanny Mcduffie MD Chronic pain of left knee (Primary Dx); Chest pain, unspecified type; Type 2 diabetes mellitus with microalbuminuria (CMS/HCC) 11/06/2024 Telephone [facility] [address] [place] [address] Jovanny Mcduffie MD Chart Prep 11/02/2024 12:30 PM EDT Office Visit [address] [phone] Bonnie Naik Periodontal disease (Primary Dx) from [...] Description 05/10/2025 12:45 PM EST Office Visit [facility] [address] [place] [phone] Bonnie Naik [address] [place] [address] Health Maintenance Due Date Last Done Comments CT Colonography 1975 Colonoscopy 1975 FIT 1975 FOBT 1975 Sigmoidoscopy 1975 Family Planning (PISQ) 1990 Diabetes: Foot Exam 01/02/2025 01/03/2024, 01/03/2024, 01/03/2024, Additional history exists COVID-19 Vaccine ( season) 2025 03/18/2021, 09/16/2020, 08/24/2020 Influenza Vaccine (#1) 2025 Zoster Vaccines (1 of 2) 2025 Diabetes: Hemoglobin A1C 03/02/2025 025, 07/27/2024, 01/03/2024, Additional history exists Dental X-Ray: Full Mouth 03/28/2025 022, 12/11/2017, 08/27/2014 Dental Oral Exam 05/05/2025 11/02/2024, 07/2023, 08/14/2023, Additional history exists Dental Prophylaxis 05/05/2025 11/02/2024, 1 06/29/2023, 10/16/2023, Additional history exists Lipid Panel 07/27/2025 07/27/2024, 0809/2023, 02/07/2023 Alcohol/Substance Use Screening 11/02/2025 11/02/2024 Dental X-Ray: Bitewings 11/03/2025 11/03/19 25, 08/14/2023, 10/01/2022, Additional history exists Depression Screening 11/09/2025 11/09/2024, 11/10/19 Disability Screening 11/09/2025 11/09/2024 SDOH Screening 11/09/2025 11/09/2024 Tobacco Screening 11/30/2025 11/30/2024 Mammogram 12/31/2025 01/01/2024, 01/26, 02/16/2021, Additional history exists Eye Exam 01/14/2026 [...] 8:07 AM EDT) 01/05/2025 8:07 AM EDT Narrative [facility] - 01/07/2025 3:12 PM EDT [address] [address] Nuclear Medicine Report Signed Patient: Ana Armijo MR#: [id number] 9 : 1975 Acct:[id number] Age/Sex: 49 / F ADM Date: 01/05/25 Loc: HO.CARD Attending Dr: Jovanny Worthy MD Ordering Physician: Jovanny Mcduffie MD Date of Service: 01/05/25 Procedure(s): NM cardiolite stress test Accession Number(s): [id number] cc: Jovanny Mcduffie MD EXERCISE MYOCARDIAL PERFUSION [...] inferoapical defect probably from diaphragmatic attenuation artifact. NM/CA cardiolite stress test IMPRESSION: 1. Myocardial perfusion [...] 01/07/25 1509 DD/ 0807 TD/TT: 01/07/25 0815 Vault Worker: Procedure Note Donotuseinterpreter, Image - 01/07/[address] [address] Nuclear Medicine Report Signed Patient: Keena Armijo#: [id number] 9 : 1975Acct:[id number] Age/Sex: 49 / FADM Date: 01/05/25 Loc: .[facility] Attending Dr: Jovanny Worthy MD Ordering Physician: Jovanny Mcduffie MD Date of Service: 01/05/25 Procedure(s): NM cardiolite stress test Accession Number(s): [id number] cc: Jovanny Mcduffie MD EXERCISE MYOCARDIAL PERFUSION [...] 01/07/25 1509 DD/ 0807 TD/TT: 01/07/25 0815 Vault Worker: Jovanny Worthy MD CV STRESS PROCEDUR ES Final Result [facility] [address] [place] [phone] * (ABNORMAL) POCT HGB A1C (11/30/2024 2:24 PM EDT) [facility] Hemoglobin A1C 7.2(A) 4.0 - 5.7 % Blood 11/30/2024 2:24 PM EDT Jovanny Worthy MD POINT OF CARE TEST ENTER/EDIT ORDERABLES Final Result * POCT Glucose (11/30/2024 2:23 PM EDT) [facility] Glucose Blood, POC 171 60 - 200 mg/dL Blood Capillary blood specimen / Unknown 11/30/2024 2:23 PM EDT Jovanny Worthy MD POINT OF CARE TEST ENTER/EDIT ORDERABLES Final Result * (ABNORMAL) Lipid Panel, Standard (07/27/2024 2:30 PM EST) Triglycerides 170(H) <150 mg/dL [facility] Comment:Desirable Triglyceri de: less than 150 mg/dLBorderline High Triglyceride 150-199 mg/dLHigh Triglyceride: 200-499 mg/dLVery High Triglyceride: greater than or equal to 5OO mg/dL Cholesterol 123 <200 mg/dL [facility] Comment:Desirable Cholestero l: less than 200 mg/dLBorderline High Cholesterol: 200-239 mg/dLHigh Cholesterol: greater than 239 mg/dL LDL Cholesterol Calculated 65 <100 mg/dL [facility] Comment:Desirable LDL: less than 100 mg/dLNear Optimal/Above Optimal LDL: 110- 129 mg/dLBorderline High LDL: 130-159 mg/dLHigh LDL: 160-189 mg/dLVery High LDL: greater than or equal to 190 mg/dL HDL Cholesterol 24(L) >40 mg/dL [facility] Comment:Desirable HDL: great er than 40 mg/dL Note: This HDL assay may give artificially low results in patients with liver disease. Blood Venous blood specimen / Unknown 07/27/2024 2:30 PM EST 07/27/2024 5:45 PM EST Jovanny Worthy MD LAB BLOOD ORDERABL ES Final Result [facility] [address] [place] [phone] * Pap Smear (04/07/2024 11:20 AM EST) Swab Cervix uteri structure / Unknown 04/07/2024 11:20 AM EST 04/08/2024 11:00 AM EST Narrative [facility] - 05/01/2024 11:20 AM EST ----- ------- Name: Ana Armijo Age/Sex: 49/F : 1975 Unit#: [id number] Attend Dr: Jailene Ding MD Re04/07/24 Status: DEP REF Location: [facility] Disch: ----- ------- SPEC : [id number] RECD: 04/08/24 STATUS: MONA CORONEL NUM: [id number] CONNOR: 04/07/[address] [facility] [address]: Jailene Ding MD ENTERED: 04/08/24 SP [...] 05/01/24 1120 ----- ------- END OF REPORT Jailene Ding MD LAB CYTOLOGY ORDERABLES Final Result Performing Organization Address [facility] Co de Phone Number [facility] [address] [place] [phone] * HPV mRNA E6/E7 w/Reflex to HPV Genotypes 16, 18/45 (04/07/2024 12:00 AM EST) Historical Provider LAB CYTOLOGY ORDERABLES F inal Result Performing Organization Address [facility] Co de Phone Number [facility] [address] [place] [address] [phone] * Referral to Optometry (01/14/2024) Jovanny Worthy MD OUTPATIENT REFERRA L ORDERABLES Final Result * Hepatitis C Antibody with Reflex to HCV, RNA, Quantitative, Real-Time PCR (01/09/2024 8:21 AM EDT) Hepatitis C Antibody Nonreactive Nonreactive [facility] Comment:Antibodies to HCV no t detected; does not exclude early acuteHCV infection. Blood Venous blood specimen / Unknown 01/09/2024 8:21 AM EDT 01/09/2024 2:04 PM EDT Jovanny Worthy MD LAB BLOOD ORDERABL ES Final Result Performing Organization Address [facility] Co de Phone Number [facility] [address] [place] [address] [phone] * HIV-1/2 Antigen and Antibodies, Fourth Generation, with Reflexes (01/09/2024 8:21 AM EDT) [facility] HIV AB/AG Nonreactive Nonreactive [facility] Comment:HIV-1 p24 Ag and/or HIV-1/HIV-2 Ab not detected.A test result that is nonreactive does not exclude thepossibility of exposure to or infection with HIV-1 and/orHIV-2. Nonreactive results in this assay for individualswith prior exposure to HIV-1 and/or HIV-2 may be due toantigen and antibody levels that are below the limit ofdetection of this assay.The Jaree HIV Ag/Ab Combo assay result andsupplemental assay results should be interpreted inconjunction with the patient's clinical presentation,history and other laboratory results. If the results areinconsistent with clinical evidence, additional testing issuggested to confirm the result. Blood Venous blood specimen / Unknown 01/09/2024 8:21 AM EDT 01/09/2024 2:04 PM EDT Jovanny Worthy MD LAB BLOOD ORDERABL ES Final Result Performing Organization Address [facility]/ZIP Co de Phone Number [facility] [address] [place] [address] [phone] * BI Mammogram Screening Tomosynthesis Bilateral (01/01/2024 1:45 PM EDT) Anatomical Region Laterality Modality Breast Bilateral Mammography 01/01/2024 1:45 PM EDT Narrative 01/28/2024 7:48 AM EDT [facility] [address] [place] [address] Mammography Report Signed Patient: Ana Armijo MR#: [id number] 9 : 1975 Acct:[id number] Age/Sex: 48 / F ADM Date: 01/01/24 Loc: HO.MAMMO Attending Dr: Jovanny Worthy MD Ordering Physician: Jovanny Mcduffie MD Res ults: 2Benign Findings Date of Service: 01/01/24 Follow Up: 1 Year From Orig inal Mammogram Procedure(s): MM tomosynthesis screening BI Accession Number(s): [id number] cc: Jovanny Mcduffie MD EXAMINATION: MM SCREENING [...] 01/28/24 0745 DD/ 1345 TD/TT: 01/01/24 1400 Vault Worker: Procedure Note Donotuseinterpreter, Image - 01/28/[facility] [address] [place] [address] Mammography Report Signed Patient: Keena Amrijo#: [id number] 9 : 1975Acct:[id number] Age/Sex: 48 / FADM Date: 01/01/24 Loc: HO.MAMMO Attending Dr: Jovanny Worthy MD Ordering Physician: Jovanny Mcduffie ults: 2Benign Findings Date of Service: 01/01/24Follow Up: 1 Year From Orig ina Mammogram Procedure(s): MM tomosynthesis screening BI Accession Number(s): [id number] cc: Jovanny Mcduffie MD EXAMINATION: MM SCREENING [...] 01/28/24 0745 DD/ 1345 TD/TT: 01/01/24 1400 Vault Worker: us Jovanny Worthy MD IMG BI PROCEDURES Final Result * Cologuard?? colon cancer screening (12/20/2023 9:40 AM EDT) Cologuard Result Negative Negative 12/28/19 24 3:48 AM EDT [facility] (CLIA #:[id number]) Comment: NEGATIVE TEST RESULT. A negative Cologuard [...] screened with both Cologuard and colonoscopy. (Pavan Pacheco al, N Engl J Med 2014;370(14):4004-5713) The normal value (reference range) for this assay is negative. COLOGUARD RE-SCREENING RECOMMENDATION: Periodic colorectal cancer screening is an important part of preventive healthcare for asymptomatic individuals at average risk for colorectal cancer. Following a negative Cologuard result, the [employer] and U.S. Multi-Society Task Force screening guidelines recommend a Cologuard re-screening interval of 3 years. References: [employer] Guideline for Colorectal Cancer Screening: https://www.cancer.org/cancer/gmxue-zkrjbo-dxubvk/jghdchmxi-eadcppihu-uxwtjgb/ac s-rec ommendations.html.; Jase DK, Sridhar CR, Tom MaradiagaK, Colorectal Cancer Screening: Recommendations for Physicians and Patients from the U.S. Multi-Society Task Force on Colorectal Cancer Screening , Am J Gastroenterology 2017; 112:1867-5603. TEST DESCRIPTION: Composite algorithmic analysis of stool [...] screened with both Cologuard and colonoscopy. (Pavan Pacheco al, N Engl J Med 2014;370(14):8419-0548.) Cologuard may produce a false negative or false positive result (no colorectal cancer or precancerous polyp present at colonoscopy follow up). A negative Cologuard test result does not guarantee the absence of CRC or advanced adenoma (pre-cancer). The current Cologuard screening interval is every 3 years. ([employer] and U.S. Multi-Society Task Force). Cologuard performance data in a 10,000 patient pivotal study using colonoscopy as the reference method can be accessed at the following location: www.StageBloc.Selphee/results. Additional description of the Cologuard test process, warnings and precautions can be found at www.Sokoosrd.com. Stool specimen (specimen) 12/20/2023 9:40 AM EDT 12/23/2023 11:04 AM EDT Jovanny Worthy MD LAB MOLECULAR DIAG NOSTICS ORDERABLES Final Result [facility] (CLIA #:[id number]) [address] [place] [address], from Last 3 Months or Most Recently Relevant to Health Maintenance [facility] [place] [facility] MEDICAID STAND ADULT DENTAL - HSN FULL (MEDICAID) Care Teams Inverter And Clipper Relationship Specialty Start Date End Date Jovanny Mcduffie MD [address] [place] [phone] PCP - General Internal Medicine 12/09/23 Jordi Gallo LLD [address] [place] [phone] Dentist Dental Precision Structural Metal Fitter 01/02/23
== END 2025-01-22 09:32 | disposition home or self-care (01) ==
LOC: HO.HOSX 09:31
PROVIDERS: Visit Provider Physician Assistant
DX: M17.0 Bilateral primary osteoarthritis of knee (principal)
CPT/HCPCS: 20610; 73562; 99212; J0665; J1100; J2003

== ENCOUNTER 2025-02-26 13:06 | Outpatient (AMB) | payer MEDICAID, SELFPAY ==
--- NOTE | 2025-02-26 13:09 | MHC.OFFVIS ---
Intake Visit Reasons: Left Knee Euflexxa Gel Injection #1 Intake Note: Ana is a 50 year old woman who presents today for a left knee Euflexxa, #1. Allergies No Known Allergies Allergy (Verified 02/26/25 13:13) [facility] HPI Left Knee Euflexxa Gel Injection #1: Details: Ms. Armijo is a 50-year-old female who presents to the office today for bilateral knee Euflexxa # 1 injections. 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 Tenderness to palpation along the medial or lateral joint lines. Full knee extension and flexion. NVI. Psych Appearance: grossly normal Mental Status: mental status grossly normal Attitude: cooperative Office Procedures AMB Joint Injection/Aspiration Joint Injection/Aspiration Primary Site: right knee Secondary Site: left knee Prep: injection warnings given Injected: in the joint and other (Euflexxa #1) Approach Used: anterolateral Procedure: The patient tolerated the procedure well, but had some pain with the injection and there was some relief with the local anesthesia Coding 73522 - Bilateral Large Joint Procedure code (CPT) selection complete Assessment & Plan Assessment & Plan (1) Osteoarthritis of knees, bilateral: Code(s): M17.0 - Bilateral primary osteoarthritis of knee Category: Medical Plan The patient was offered Euflexxa # 1 in bilateral knees l. The patient was explained the risks, benefits, and alternatives to receiving this injection. After receiving consent for the injection, the patient had the procedure done while in the office today. The patient tolerated the procedure well with no complications. Follow-up will be 1 week for Euflexxa #2 in bilateral knees, or sooner if needed Coding Level of Care Code Procedure Only Diagnoses Osteoarthritis of knees, bilateral M17.0 CPT Codes Coding - 96137 - Bilateral Large Joint: 63138 - Bilateral Large Joint ([id number])
--- OUTSIDE RECORDS SUMMARY | 2025-02-26 13:27 | XMS_ITS | Encounter Summary ---
Author Organization [employer] Address [address] [place] [address] Care Team Providers Care Scroll Assembler Name Role Phone Jordi Gallo DMD Unavailable Unavailable Jovanny Mcduffie MD Primary Care Prov ider Reason for Visit * Reason Onset Date Comments Nurse Triage 12/20/2023 Med Refill 12/20/2023 Encounter Details Date Type Department Care Team ([facility] st Contact Info) Description 12/20/2023 Telephone [facility] [address] [place] [address] Jovanny Mcduffie MD [address] [place], [place] [phone] Nurse Triage; Med Refill Social History Tobacco Use Types Packs/Day Years Used Date Smoking Tobacco: Every Day Cigarettes 0.5 39.2 Started: 12/06/1985 Smokeless Tobacco: Never Alcohol Use [...] Care Team (Late st Contact Info) Description 03/12/2025 9:30 AM EDT Telemedicine [facility] P[facility] [address] [place] [address] Jovanny Mcduffie MD [address] [place] [address] 05/10/2025 12:45 PM EST Office Visit [facility] [address] [place] [phone] Bonnie Naik [address] [place] [address] documented as of this encounter Visit Diagnoses Not on filedocumented in this encounter Care Teams Scroll Assembler Relationship Specialty Start Date End Date Jovanny Mcduffie MD [address] [place] [phone] PCP - General Internal Medicine 12/09/23 Jordi Gallo DMD Dentist Dental Manager Contact 01/02/23 documented as of this encounter
--- OUTSIDE RECORDS SUMMARY | 2025-02-26 13:27 | XMS_ITS | Encounter Summary ---
Author Organization [employer] Address [address] [place] [address] Care Team Providers Care Beater Head Name Role Phone Jordi Gallo DMD Unavailable Unavailable Elicia Powell MD Primary Care Provider Jovanny Mcduffie MD Primary Care Prov ider [...] Info) Description 03/12/2025 9:30 AM EDT Telemedicine [facility] P[facility] [address] [place] [address] Jovanny Mcduffie MD [address] [place] [address] 05/10/2025 12:45 PM EST Office Visit [facility] [address] [place] [phone] Bonnie Naik [address] [place] [address] documented as of this encounter Visit Diagnoses Not on filedocumented in this encounter Care Teams Beater Head Relationship Specialty Start Date End Date Elicia Powell MD [address] [place] [address] [address] [place] [address] PCP - General Family Medicine 01/02/23 12/03/23 Jovanny Mcduffie MD [address] [place] [address] PCP - General Internal Medicine 12/09/23 Jordi Gallo DMD Dentist Dental Cad Cam Programmer 01/02/23 documented as of this encounter
--- OUTSIDE RECORDS SUMMARY | 2025-02-26 13:27 | XMS_ITS | Encounter Summary ---
Author Organization [employer] Address 75 [facility] 7 [place] [address] Care Team Providers Care Charge Master Coordinator Name Role Phone Jordi Gallo DMD Unavailable Unavailable Jovanny Mcduffie MD Primary Care Prov ider Encounter Details Date Type Department Care Team (Late st Contact Info) Description 07/31/2024 Orders Only [facility]S [address] [place], [place] [phone] Jovanny Mcduffie MD [address] [place] [address] Dietary counseling; Exercise counseling Social History Tobacco [...] Info) Description 03/12/2025 9:30 AM EDT Telemedicine [facility] [address] [place] [address] Jovanny Mcduffie MD [address] [place] [address] 05/10/2025 12:45 PM EST Office Visit [facility] [address] [place] [phone] Bonnie Naik [address] [place] [address] documented as of this encounter Visit Diagnoses Diagnosis Dietary counseling Dietary surveillance and counseling Exercise counseling documented in this encounter Care Teams Charge Master Coordinator Relationship Specialty Start Date End Date Jovanny Mcduffie MD [address] [place] [address] PCP - General Internal Medicine 12/09/23 Jordi Gallo DMD Dentist Dental Repair Manager 01/02/23 documented as of this encounter
--- OUTSIDE RECORDS SUMMARY | 2025-02-26 13:27 | XMS_ITS | Encounter Summary ---
Author Organization [employer] Address [address] [place] [address] Care Team Providers Care Booth Cashier Name Role Phone Jordi Gallo DMD Unavailable [...] 03/12/2025 9:30 AM EDT Telemedicine [facility] [address] [place] [address] Jovanny Mcduffie MD [address] [place] [address] 05/10/2025 12:45 PM EST Office Visit [facility] [address] [place] [phone] Bonnie Naik [address] [place] [address] documented as of this encounter Visit Diagnoses Not on filedocumented in this encounter Care Teams Booth Cashier Relationship Specialty Start Date End Date Elicia Powell MD [address] [place] [phone] PCP - General Family Medicine 01/02/23 12/03/23 Jovanny Mcduffie MD [address] [place] [address] PCP - General Internal Medicine 12/09/23 Jordi Gallo DMD Dentist Dental Script Worker 01/02/23 documented as of this encounter
--- OUTSIDE RECORDS SUMMARY | 2025-02-26 13:27 | XMS_ITS | Encounter Summary ---
Author Organization [employer] Address 75 [facility] 7 [place] [address] Care Team Providers Care Direct Support Specialist Name Role Phone Jordi Gallo DMD Unavailable Unavailable Jovanny Mcduffie MD Primary Care Prov ider Encounter Details Date Type Department Care Team (Late st Contact Info) Description 12/08/2024 Orders Only [facility] MED & PEDS [address] [place], [place] [phone] Jovanny Mcduffie MD [address] [place] [address] Social History Tobacco Use Types Packs/Day Years Used Date Smoking Tobacco: Every Day Cigarettes 0.5 39.2 Started: 12/06/1985 Passive Smoke Exposure: Current Smokeless [...] Info) Description 03/12/2025 9:30 AM EDT Telemedicine [facility]S [address] [place] [address] Jovanny Mcduffie MD [address] [place] [address] 05/10/2025 12:45 PM EST Office Visit [facility] [address] [place] [phone] Bonnie Naik [address] [place] [address] documented as of this encounter Visit Diagnoses Not on filedocumented in this encounter Care Teams Direct Support Specialist Relationship Specialty Start Date End Date Jovanny Mcduffie MD [address] [place] [address] PCP - General Internal Medicine 12/09/23 Jordi Gallo DMD Dentist Dental Cake Tester 01/02/23 documented as of this encounter
--- OUTSIDE RECORDS SUMMARY | 2025-02-26 13:27 | XMS_ITS | Encounter Summary ---
Author Organization [facility] Address [address] [place] [address] Phone Care Team Providers Care Supervisor Home Restoration Service Name Role Phone Chinyere Murray DO Primary Care Provider +- [phone] Chinyere Murray DO Primary Care Provider + [phone] Elicia Powell MD Primary Care Provider Elicia Powell MD Unavailable +[phone] Encounter Details Date Type Department Care Team (Late st Contact Info) Description 02/16/2020 Ancillary Orders [facility] [place] [address] [place] [address] Chinyere Murray, DO [address] [place] [address] [email or web address] Abnormal mammogram Social History Tobacco Use Types [...] high school, GED, job training, learning the Persian language, technical skills, or developing parenting skills)? [...] unspecified documented in this encounter Care Teams Supervisor Home Restoration Service Relationship Specialty Start Date End Date Chinyere Murray DO [address] [place] [address] [email or web address] PCP - General Family Medicine 10/15/18 07/07/20 Chinyere Murray DO [address] [place] [address] [email or web address] PCP - General Family Medicine 07/08/20 09/29/20 Elicia Powell MD [address] [place] [address] [email or web address] PCP - General Family Medicine 09/30/20 Elicia Powell MD [address] [place] [address] [email or web address] Insurance Assigned Provider 12/03/20 02/02/23 documented as of this encounter Additional Source Comments The information contained in this document represents components of the legal health record. It is not the complete legal health record.[facility]
--- OUTSIDE RECORDS SUMMARY | 2025-02-26 13:27 | XMS_ITS | Encounter Summary ---
Author Organization [employer] Address [address] [place] [address] Care Team Providers Care E Commerce Specialist Name Role Phone Jordi Gallo DMD [...] 03/12/2025 9:30 AM EDT Telemedicine [facility] [address] [place] [address] Jovanny Mcduffie MD [address] [place] [address] 05/10/2025 12:45 PM EST Office Visit [facility] [address] [place] [phone] Bonnie Naik [address] [place] [address] documented as of this encounter Visit Diagnoses Not on filedocumented in this encounter Care Teams E Commerce Specialist Relationship Specialty Start Date End Date Elicia Powell MD [address] [place] [address] [address] [place] [address] PCP - General Family Medicine 01/02/23 12/03/23 Jovanny Mcduffie MD [address] [place] [address] PCP - General Internal Medicine 12/09/23 Jordi Gallo DMD Dentist Dental Science And Operations Officer 01/02/23 documented as of this encounter
--- OUTSIDE RECORDS SUMMARY | 2025-02-26 13:27 | XMS_ITS | Encounter Summary ---
Author Organization [employer] Address [address] [place] [address] Care Team Providers Care Nail Making Machine Tender Name Role Phone Jordi Gallo DMD Unavailable [...] 03/12/2025 9:30 AM EDT Telemedicine [facility] [address] [place] [address] Jovanny Mcduffie MD 505 [place] [address] 05/10/2025 12:45 PM EST Office Visit [facility] [address] [place] [phone] Bonnie Naik [address] [place] [address] documented as of this encounter Visit Diagnoses Not on filedocumented in this encounter Care Teams Nail Making Machine Tender Relationship Specialty Start Date End Date Elicia Powell MD [address] [place] [address] PCP - General Family Medicine 01/02/23 12/03/23 Jovanny Mcduffie MD [address] [place] [address] PCP - General Internal Medicine 12/09/23 Jordi Gallo DMD Dentist Dental Exercise Science Instructor 01/02/23 documented as of this encounter
--- OUTSIDE RECORDS SUMMARY | 2025-02-26 13:27 | XMS_ITS | Encounter Summary ---
Author Organization [employer] Address [address] [facility] 7 [place] [address] Care Team Providers Care School Transportation Supervisor Name Role Phone Jordi Gallo DMD Unavailable Unavailable Jovanny Mcduffie MD Primary Care Prov ider Reason for Visit * Reason Onset Date Comments Medication Question 07/10/2024 Encounter Details Date Type Department Care Team ([facility] st Contact Info) Description 07/10/2024 Telephone [facility] [address] [place] [address] Jovanny Mcduffie MD [address] [place], [place] [phone] Medication Question Social History Tobacco Use Types [...] need blood work regarding zepbound and diabetes. [phone] documented in this encounter Plan of Treatment Upcoming Encounters Date Type Department Care Team (Late st Contact Info) Description 03/12/2025 9:30 AM EDT Telemedicine [facility] [address] [place] [address] Jovanny Mcduffie MD [address] [place] [address] 05/10/2025 12:45 PM EST Office Visit [facility] [address] [place] [address] Bonnie Naik [address] [place] [address] documented as of this encounter Visit Diagnoses Not on filedocumented in this encounter Care Teams School Transportation Supervisor Relationship Specialty Start Date End Date Jovanny Mcduffie MD [address] [place] [address] PCP - General Internal Medicine 12/09/23 Jordi Gallo, KHALIF Dentist Dental Striper 01/02/23 documented as of this encounter
--- OUTSIDE RECORDS SUMMARY | 2025-02-26 13:27 | XMS_ITS | Clinical Summary ---
Author Organization [employer] Address [address] [facility] 7t [place] [address] Care Team Providers Care Varnish Blender Name Role Phone Jordi Gallo DMD Unavailable [...] Once per day. 1 kit 4 Active Alcohol Swabs (Alcohol Pads) 70 % pads 1 Units Once per day. 100 each 11 4 Active atorvastatin (Lipitor) 80 MG tablet Take 1 tablet (80 mg) by mouth Once per day. 90 tablet 3 4 03/23/20 25 Active lisinopril 10 MG tablet TAKE ONE TABLET EVERY DAY 90 tablet 5 Active IBU 800 MG tablet TAKE ONE TABLET EVERY 8 HOURS NEEDED MILD PAIN 90 tablet 1 5 Active Tirzepatide (Mounjaro) 5 MG/0.5ML solution auto-injector Inject 5 mg under the skin 1 (one) time per week. 2 mL 1 5 Active Tirzepatide-Oli ght Management (Zepbound) 2.5 MG/0.5ML solution auto-injector Inject 0.5 mL (2.5 mg) under the skin 1 (one) time per week. 3 mL 5 Active Active Problems Problem Noted Date Diagnosed Date Chest pain 11/09/2024 Assessment & Plan (11/09/2024 10:25 AM EDT): Fam hx of [place], she has several risk factors, had a brother with brugada syndrome, will refer to genetic Cervical cancer screening 04/07/2024 Assessment & Plan (04/07/2024 11:21 AM EST): 49 y.o. here for cervical cancer screening. Will continue monitoring following ASCCP guidelines. Pt declined influenza and Covid vaccines today. Primary hypertension 01/16/2024 Assessment & Plan (01/28/2025 1:49 PM EDT): Continue low sodium diet and exercise as toleerated, keep bp log, follow up in 2 months Assessment & Plan (05/18/2024 9:41 AM EST): [...] PCP follow up 6 months ago, in [facility] No er visit on the [...] with microalbuminuria 0 07/04/2023 Assessment & Plan (02/11/2025 1:36 PM EDT): Patient did not tolerated mounjaro 5mg, refers having diarrhea, nausea, abdominal pain, will switch to zepbound as she refers tried it before without reaction, follow up in 1 month Assessment & Plan (01/05/2025 2:32 PM EDT): [...] Encounters Date Type Department Care Team Description 02/11/2025 11:15 AM EDT Telemedicine [facility] [address] [place] [address] Jovanny Mcduffie MD Type 2 diabetes mellitus with microalbuminuria ([facility]) (Primary Dx) 02/11/2025 Travel 02/10/2025 Telephone [facility] [address] [place] [address] Jovanny Mcduffie MD chart prep 01/29/2025 Orders Only [facility] [address] [place] [address] Provider, MD Мария 01/27/2025 Travel 01/22/2025 Telephone [facility] [address] [place] [address] [place] [address] Jovanny Mcduffie MD Medication Question 01/05/2025 1:00 PM EDT Telemedicine [facility] [address] [place] [address] Jovanny Mcduffie MD Type 2 diabetes mellitus with microalbuminuria ([facility]/HCC) (Primary Dx); Primary hypertension 01/05/2025 Travel 01/01/2025 Refill [facility] [address] [place] [address] Jovanny Mcduffie MD 12/15/2024 Refill [facility] [address] [place] [address] Jovanny Mcduffie MD 12/08/2024 Telephone [facility] [address] [place] [address] Jovanny Mcduffie MD 12/08/2024 Orders Only [facility] [address] [place] [address] Jovanny Mcduffie MD 12/08/2024 Telephone [facility] [address] [place] [address] Jovanny Mcduffie MD 12/01/2024 Telephone [facility] [address] [place] [address] Jovanny Mcduffie MD 11/30/2024 1:30 PM EDT Office Visit [facility] [address] [place] [address] Jovanny Mcduffie MD Type 2 diabetes mellitus with microalbuminuria ([facility]/HCC) (Primary Dx) 11/30/2024 Travel from Last 3 Months Immunizations Immunization Administration [...] Info) Description 03/12/2025 9:30 AM EDT Telemedicine [facility] [address] [place] [address] RosenJovanny Murry MD [address] [place] [address] 05/10/2025 12:45 PM EST Office Visit [facility] [address] [place] [phone] Bonnie Naik [address] [place] [address] Health Maintenance Due Date Last Done Comments CT Colonography 1975 Colonoscopy 1975 FIT 1975 Sigmoidoscopy 1975 Family Planning (PISQ) 1990 FOBT 12/19/2024 12/20/2023 Diabetes: Foot Exam 01/02/2025 01/03/2024, 01/03/2024, 01/03/2024, [...] Screening 11/09/2025 11/09/2024 SDOH Screening 11/09/2025 11/09/2024 Mammogram 12/31/2025 01/01/2024, 01/26, 02/16/2021, Additional history exists Tobacco Screening 02/11/2026 02/11/2025 Colorectal Cancer Screening 12/19/2026 FIT DNA/Cologuard 12/19/2026 12/20/2023 Eye Exam 01/28/2027 01/28/2025, 12/26, 01/14/2024 Cervical Cancer Screening 04/07/2029 HPV/Cotest 04/07/2029 04/07/2024 Pap Smear 04/07/2029 04/07/2024 DTaP/Tdap/Td Vaccines (3 - Td or Tdap) 06/05/2031 06/05/2021, 05/04/2010 RSV Patients and Patients Aged 60 years or older (1 - 1-dose 75+ series) 2050 Hepatitis B Vaccines Completed 12/26/2012, 07/25/2012, 06/19/2012 Pneumococcal Vaccine: 50+ Years Completed 05/01/2022 HIV Screening Completed 01/09/2024 [...] Procedure Name Priority Date/Time Associated Diagnosis Comments HM DIABETES EYE EXAM Routine 01/28/2025 10:43 AM EDT STRESS TEST WITH MYOCARDIAL PERFUSION Routine 01/05/2025 8:07 AM EDT Chest pain, unspecified type POCT GLYCATED HEMOGLOBIN, TOTAL Routine 11/30/2024 2:24 PM EDT Type 2 diabetes mellitus with microalbuminuria (CMS/HCC) POCT GLUCOSE Routine 11/30/2024 2:23 PM EDT Type 2 diabetes mellitus with microalbuminuria (CMS/HCC) PROPHYLAXIS - ADULT Routine 11/02/2024 1 2:30 PM EDT BITEWINGS - 4 RADIOGRAPHIC IMAGES Routine 11/02/2024 12:30 PM EDT PERIODIC ORAL EVALUATION - ESTABLISHED PATIENT Routine 11/02/2024 12:30 PM EDT LIPID PANEL, STANDARD Routine 07/27/2024 2:30 PM EST Type 2 diabetes mellitus with microalbuminuria (CMS/HCC) PAP SMEAR Routine 04/07/2024 11:20 AM EST Cervical cancer screening HPV MRNA E6/E7 REFLEX TO HPV 16, 18/45 Routine 04/07/2024 12:00 AM EST HEPATITIS C AB W/REFL TO HCV RNA, [...] Recently Relevant to Health Maintenance Results * Diabetes Eye Exam (01/28/2025 10:43 AM EDT) us Historical Provider MD HEALTH MAINTENANCE Final Result * Stress test with myocardial perfusion (01/05/2025 8:07 AM EDT) 01/05/2025 8:07 AM EDT Narrative [facility] - 01/07/2025 3:12 PM EDT [place] [address] Nuclear Medicine Report Signed Patient: Ana Armijo MR#: [id number] 9 : 1975 Acct:[id number] Age/Sex: 49 / F ADM Date: 01/05/25 Loc: [facility] Attending Dr: Jovanny Worthy MD Ordering Physician: Jovanny Mcduffie MD Date of Service: 01/05/25 Procedure(s): NM cardiolite stress test Accession Number(s): [id number] cc: Jovanny Mcduffie MD EXERCISE MYOCARDIAL PERFUSION [...] Ramos Banuelos MD 01/07/2025 03:09 PM EDT Dictated By: Ramos Banuelos MD Signed By: <Electronically signed by Ramos Banuelos MD in OV> 01/07/25 1509 DD/ 0807 TD/TT: 01/07/25 0815 Rope Laying Machine Operator: Procedure Note Donotuseinterpreter, Image - 01/07/2025 [place] [address] Nuclear Medicine Report Signed Patient: Keena Armijo#: [id number] 9 : 1975Acct:[id number] Age/Sex: 49 / FADM Date: 01/05/25 [facility] Dr: Jovanny Worthy MD Ordering Physician: Jovanny Mcduffie MD Date of Service: 01/05/25 Procedure(s): NM cardiolite stress test Accession Number(s): [id number] cc: Jovanny Mcduffie MD EXERCISE MYOCARDIAL PERFUSION [...] Ramos Banuelos MD 01/07/2025 03:09 PM EDT Dictated By: Ramos Banuelos MD Signed By: <Electronically signed by Ramos Banuelos MD inOV> 01/07/25 1509 DD/ 0807 TD/TT: 01/07/25 0815 Rope Laying Machine Operator: us Jovanny Worthy MD CV STRESS PROCEDUR ES Final Result [facility] [address] [place] [phone] * (ABNORMAL) POCT HGB A1C (11/30/2024 2:24 PM EDT) Hemoglobin A1C 7.2(A) 4.0 - 5.7 % Blood 11/30/2024 2:24 PM EDT us Jovanny Worthy MD POINT OF CARE TEST ENTER/EDIT ORDERABLES Final Result * POCT Glucose (11/30/2024 2:23 PM EDT) Glucose Blood, POC 171 60 - 200 mg/dL Blood Capillary blood specimen / Unknown 11/30/2024 2:23 PM EDT Jovanny Worthy MD POINT OF CARE TEST ENTER/EDIT ORDERABLES Final Result * (ABNORMAL) Lipid Panel, Standard (07/27/2024 2:30 PM EST) Triglycerides 170(H) <150 mg/dL [facility] Comment:Desirable Triglyceri de: less than 150 mg/dLBorderline High Triglyceride 150-199 mg/dLHigh Triglyceride: 200-499 mg/dLVery High Triglyceride: greater than or equal to 5OO mg/dL Cholesterol 123 <200 mg/dL [facility] Comment:Desirable Cholestero l: less than 200 mg/dLBorderline High Cholesterol: 200-239 mg/dLHigh Cholesterol: greater than 239 mg/dL LDL Cholesterol Calculated 65 <100 mg/dL [facility] Comment:Desirable LDL: less than 100 mg/dLNear Optimal/Above Optimal LDL: 110- 129 mg/dLBorderline High LDL: 130-159 mg/dLHigh LDL: 160-189 mg/dLVery High LDL: greater than or equal to 190 mg/dL HDL Cholesterol 24(L) >40 mg/dL [facility] Comment:Desirable HDL: great er than 40 mg/dL Note: This HDL assay may give artificially low results in patients with liver disease. Blood Venous blood specimen / Unknown 07/27/2024 2:30 PM EST 07/27/2024 5:45 PM EST Jovanny Worthy MD LAB BLOOD ORDERABL ES Final Result [facility] [address] [place] [phone] * Pap Smear (04/07/2024 11:20 AM EST) Swab Cervix uteri structure / Unknown 04/07/2024 11:20 AM EST 04/08/2024 11:00 AM EST Ness [facility] - 05/01/2024 11:20 AM EST ----- ------- Name: Ana Armijo Age/Sex: 49/F : 1975 Unit#: [id number] Attend Dr: Jailene Ding MD Re04/07/24 Status: DEP REF Location: HO.HHCLNP Disch: ----- ------- SPEC : [id number] RECD: 04/08/24 STATUS: MONA CORONEL NUM: [id number] CONNOR: 04/07/[address] [facility] DR: Jailene Ding MD ENTERED: 04/08/24 SP TYPE: Pap Smr OT DR: ORDERED: Pap Smear Addendum Addendum 1 [...] CYTOLOGY ORDERABLES Final Result Performing Organization Address [facility]/ZIP Co de Phone Number [facility] [address] [place] [phone] * HPV mRNA E6/E7 w/Reflex to HPV Genotypes 16, 18/45 (04/07/2024 12:00 AM EST) Historical Provider LAB CYTOLOGY ORDERABLES F inal Result Performing Organization Address [facility]/ZIP Co de Phone Number [facility] [address] [place] [phone] [phone] * Hepatitis C Antibody with Reflex to HCV, RNA, Quantitative, Real-Time PCR (01/09/2024 8:21 AM EDT) Pathologist [facility] Hepatitis C Antibody Nonreactive Nonreactive [facility] Comment:Antibodies to HCV no t detected; does not exclude early acuteHCV infection. Blood Venous blood specimen / Unknown 01/09/2024 8:21 AM EDT 01/09/2024 2:04 PM EDT Jovanny Worthy MD LAB BLOOD ORDERABL ES Final Result Performing Organization Address [facility] Co de Phone Number [facility] [address] [place] [phone] * HIV-1/2 Antigen and Antibodies, Fourth Generation, with Reflexes (01/09/2024 8:21 AM EDT) [facility] HIV AB/AG Nonreactive Nonreactive [facility] Comment:HIV-1 p24 Ag and/or HIV-1/HIV-2 Ab not detected.A test result that is nonreactive does not exclude thepossibility of exposure to or infection with HIV-1 and/orHIV-2. Nonreactive results in this assay for individualswith prior exposure to HIV-1 and/or HIV-2 may be due toantigen and antibody levels that are below the limit ofdetection of this assay.The [employer] HIV Ag/Ab Combo assay result andsupplemental assay results should be interpreted inconjunction with the patient's clinical presentation,history and other laboratory results. If the results areinconsistent with clinical evidence, additional testing issuggested to confirm the result. Blood Venous blood specimen / Unknown 01/09/2024 8:21 AM EDT 01/09/2024 2:04 PM EDT us Jovanny Worthy MD LAB BLOOD ORDERABL ES Final Result Performing Organization Address [facility]/ZIP Co de Phone Number [facility] [address] [place] [phone] * BI Mammogram Screening Tomosynthesis Bilateral (01/01/2024 1:45 PM EDT) Anatomical Region Laterality Modality Breast Bilateral Mammography 01/01/2024 1:45 PM EDT Narrative 01/28/2024 7:48 AM EDT [place] [address] [place] [address] Mammography Report Signed Patient: Ana Armijo MR#: [id number] 9 : 1975 Acct:[id number] Age/Sex: 48 / F ADM Date: 01/01/24 Loc: HO.MAMMO Attending Dr: Jovanny Worthy MD Ordering Physician: Jovanny Mcduffie MD Res ults: 2Benign Findings Date of Service: 01/01/24 Follow Up: 1 Year From [facility] ina Mammogram Procedure(s): MM tomosynthesis screening BI Accession Number(s): [id number] cc: Jovanny Mcduffie MD EXAMINATION: MM SCREENING [...] 01/28/24 0745 DD/ 1345 TD/TT: 01/01/24 1400 Rope Laying Machine Operator: Procedure Note Donotuseinterpreter, Image - 01/28/20[facility] [address] [place] [address] Mammography Report Signed Patient: Keena Armijo#: [id number] 9 : 1975Acct:[id number] Age/Sex: 48 / FADM Date: 01/01/24 Loc: HO.MAMMO Attending Dr: Jovanny Worthy MD Ordering Physician: Jovanny Mcduffie ults: 2Benign Findings Date of Service: 01/01/24Follow Up: 1 Year From Orig inal Mammogram Procedure(s): MM tomosynthesis screening BI Accession Number(s): [id number] cc: Jovanny Mcduffie MD EXAMINATION: MM SCREENING [...] 01/28/24 0745 DD/ 1345 TD/TT: 01/01/24 1400 Rope Laying Machine Operator: Jovanny Worthy MD IMG BI PROCEDURES Final Result * Cologuard?? colon cancer screening (12/20/2023 9:40 AM EDT) Cologuard Result Negative Negative 12/28/19 3:48 AM EDT [facility] (CLIA #:[id number]) Comment: NEGATIVE TEST RESULT. A negative Cologuard [...] were screened with both Cologuard and colonoscopy. (Elkinialronny T. et al, N Engl J Med 2014;370(14):1772-7354) The normal value (reference range) for this assay is negative. COLOGUARD RE-SCREENING RECOMMENDATION: Periodic colorectal cancer screening is an important part of preventive healthcare for asymptomatic individuals at average risk for colorectal cancer. Following a negative Cologuard result, the [place] [employer] Society and U.S. Multi-Society Task Force screening guidelines recommend a Cologuard re-screening interval of 3 years. References: [place] [employer] Guideline for Colorectal Cancer Screening: https://www.cancer.org/cancer/kcnpl-ukqefk-idmhoi/lwvdneatt-pphlcttcb-avrbkux/ac s-rec ommendations.html.; Jase LOPEZ, Sridhar PARADA, Tom MaradiagaK, Colorectal Cancer Screening: Recommendations for Physicians and Patients from the U.S. Multi-Society Task Force on Colorectal Cancer Screening , Am J Gastroenterology 2017; 112:9725-4536. TEST DESCRIPTION: Composite algorithmic analysis of stool [...] Robison. et al, N Engl J Med 2014;370(14):2589-0593.) Cologuard may produce a false negative or false positive result (no colorectal cancer or precancerous polyp present at colonoscopy follow up). A negative Cologuard test result does not guarantee the absence of CRC or advanced adenoma (pre-cancer). The current Cologuard screening interval is every 3 years. ([place] [employer] Society and U.S. Multi-Society Task Force). Cologuard performance data in a 10,000 patient pivotal study using colonoscopy as the reference method can be accessed at the following location: www.[employer]/results. Additional description of the Cologuard test process, warnings and precautions can be found at www.CorNovard.com. Stool specimen (specimen) 12/20/2023 9:40 AM EDT 12/23/2023 11:04 AM EDT Jovanny Worthy MD LAB MOLECULAR DIAG NOSTICS ORDERABLES Final Result [facility] (CLIA #:[id number]) [address] [place] [address] [phone] from Last 3 Months or Most Recently Relevant to Health Maintenance [place] [address] [address] [place] [address] [facility]ENT[facility] - HSN FULL (MEDICAID) Care Teams Varnish Blender Relationship Specialty Start Date End Date Jovanny Mcduffie MD [address] [place] [phone] PCP - General Internal Medicine 12/09/23 Jordi Gallo DMD Dentist Dental Powerhouse Electrician Apprentice 01/02/23
--- OUTSIDE RECORDS SUMMARY | 2025-02-26 13:27 | XMS_ITS | Encounter Summary ---
Author Organization [employer] Address [address] [facility] 7 [place] [address] Care Team Providers Care Sql Ssrs Ssis Developer Name Role Phone Jordi Gallo DMD Unavailable Unavailable Jovanny Mcduffie MD Primary Care Prov ider Reason for Visit * Reason Onset Date Comments Medication Question 07/17/2024 Encounter Details Date Type Department Care Team ([facility] st Contact Info) Description 07/17/2024 Telephone [facility] [address] [place] [address] Jovanny Mcduffie MD [address] [place], [place] [phone] Medication Question Social History Tobacco Use Types [...] Miscellaneous Notes * Telephone Encounter - Edmund Maciasnandez - 07/17/2024 8:49 AM EST Tc from pt requesting a call back to discuss medication Tirzepatide-Weight Management (Zepbound) 5 MG/0.5ML solution. Pt states would like to know if they ae going to Increase her Dose or if she is suppose to stay on the Same one. Contact pt at [phone] documented in this encounter Plan of Treatment Upcoming Encounters Date Type Department Care Team (Late st Contact Info) Description 03/12/2025 9:30 AM EDT Telemedicine [facility] [address] [place] [address] Jovanny Mcduffie MD [address] [place] [address] 05/10/2025 12:45 PM EST Office Visit [facility] [address] [place] [phone] Bonnie Naik [address] [place] [address] documented as of this encounter Visit Diagnoses Not on filedocumented in this encounter Care Teams Sql Ssrs Ssis Developer Relationship Specialty Start Date End Date Jovanny Mcduffie MD [address] [place] [address] PCP - General Internal Medicine 12/09/23 Jordi Gallo DMD Dentist Dental Abrasive Wheel Molder 01/02/23 documented as of this encounter
--- OUTSIDE RECORDS SUMMARY | 2025-02-26 13:27 | XMS_ITS | Encounter Summary ---
Author Organization [facility] Address [facility] [employer] [address] [address] Phone Care Team Providers Care Corn Cooker Name Role Phone Elicia Powell MD Primary Care Provider + [phone] Reason for Visit * Reason Comments Medication Refill Encounter Details Date Type Department Care Team ([facility] st Contact Info) Description 06/13/2023 Refill [facility] Podiatry [address] [place] [address] Chelsy Hartmann DPM [address] [facility] [address] [place] [address] [email or web address] Medication Refill Social History Tobacco Use Types Packs/Day Years Used Date Smoking Tobacco: Every Day Cigarettes 1 41.8 Started: 1983 Smokeless Tobacco: Never Alcohol Use [...] high school, GED, job training, learning the Bermudian language, technical skills, or developing parenting skills)? 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 Not on file Not on file Not on file documented as of this encounter Plan of Treatment Not on file documented as of this encounter Visit Diagnoses Diagnosis Poorly controlled type 2 diabetes mellitus with neuropathy documented in this encounter Additional Health Concerns Assessment Noted Time PHQ-2 Depression Total Score: 0 02/08/20 23 12:56 PM EDT documented as of this encounter Care Teams Corn Cooker Relationship Specialty Start Date End Date Elicia Powell MD [address] [place] [address] [email or web address] PCP - General Family Medicine 09/30/20 documented as of this encounter Additional Source Comments The information contained in this document represents components of the legal health record. It is not the complete legal health record.[facility]
--- OUTSIDE RECORDS SUMMARY | 2025-02-26 13:27 | XMS_ITS | Encounter Summary ---
Author Organization [facility] Address [facility] [employer] [address] [address] Phone Care Team Providers Care Respiratory Medicine Physician Name Role Phone Chinyere Murray DO Primary Care Provider [phone] Chinyere Murray DO Primary Care Provider +- [phone] Elicia Powell MD Primary Care Provider [phone]- [phone] Elicia Powell MD Unavailable [phone] Encounter Details Date Type Department Care Team (Late st Contact Info) Description 2020 Procedure Pass [facility], [address] [phone] Social History Tobacco Use Types Packs/Day Years [...] high school, GED, job training, learning the Costa Rican language, technical skills, or developing parenting skills)? [...] on filedocumented in this encounter Care Teams Respiratory Medicine Physician Relationship Specialty Start Date End Date Chinyere Murray DO [address] [place] [address] [email or web address] PCP - General Family Medicine 10/15/18 07/07/20 Chinyere Murray DO [address] [place] [address] [email or web address] PCP - General Family Medicine 07/08/20 09/29/20 Elicia Powell MD [address] [place] [address] [email or web address] PCP - General Family Medicine 09/30/20 Elicia Powell MD [address] [place] [address] [email or web address] Insurance Assigned Provider 12/03/20 02/02/23 documented as of this encounter Additional Source Comments The information contained in this document represents components of the legal health record. It is not the complete legal health record.[facility]
--- OUTSIDE RECORDS SUMMARY | 2025-02-26 13:27 | XMS_ITS | Encounter Summary ---
Author Organization [employer] Address [address] [place] [address] Care Team Providers Care Wire Coiner Name Role Phone Jordi Gallo DMD Unavailable Unavailable Jovanny Mcduffie MD Primary Care Prov ider Encounter Details Date Type Department Care Team (Late st Contact Info) Description 09/22/2024 Orders Only [facility] [address] [place], [place] [phone] Calli Garcia Social History Tobacco Use Types [...] Info) Description 03/12/2025 9:30 AM EDT Telemedicine [facility] MED & PEDS [address] [place] [address] Jovanny Mcduffie MD 505 [place] [address] 05/10/2025 12:45 PM EST Office Visit [facility] [address] [place] [address] Bonnie Naik [address] [place] [address] documented as of this encounter Procedures Procedure Name Priority Date/Time Associated Diagnosis Comments HPV MRNA E6/E7 REFLEX TO HPV 16, 18/45 Routine 04/07/2024 12:00 AM EST documented in this encounter Results * HPV mRNA E6/E7 w/Reflex to HPV Genotypes 16, 18/45 (04/07/2024 12:00 AM EST) us Historical Provider LAB CYTOLOGY ORDERABLES F inal Result [facility] [address] [place] [address] [phone] documented in this encounter Visit Diagnoses Not on filedocumented in this encounter Care Teams Wire Coiner Relationship Specialty Start Date End Date Jovanny Mcduffie MD [address] [place] [address] PCP - General Internal Medicine 12/09/23 Jordi Gallo DMD Dentist Dental National Accounts Recruiter 01/02/23 documented as of this encounter
--- OUTSIDE RECORDS SUMMARY | 2025-02-26 13:28 | XMS_ITS | Encounter Summary ---
Author Organization [employer] Address [address] [place] [address] Care Team Providers Care Senior Security Architect Name Role Phone Jordi Gallo DMD Unavailable Unavailable Jovanny Mcduffie MD Primary Care Prov ider Encounter Details Date Type Department Care Team (Late st Contact Info) Description 01/29/2025 Orders Only [facility] MED & PEDS [address] [place], [place] [phone] Provider, MD Мария Social History Tobacco Use Types Packs/Day Years Used Date Smoking Tobacco: Every Day Cigarettes 0.5 39.2 Started: 12/06/1985 Passive Smoke Exposure: Current Smokeless Tobacco: Never Alcohol Use Standard Drinks/Week Comments Never 0 (1 standard drink = 0.6 oz pur e alcohol) Housing Stability Answer Date Recorded What is your housing situation today? I have daniellearsen palomo 12/25/[address] you [...] Info) Description 03/12/2025 9:30 AM EDT Telemedicine [facility] MED [facility]ED[facility] [address] [place] [address] Jovanny Mcduffie MD [address] [place] [address] 05/10/2025 12:45 PM EST Office Visit [facility] [address] [place] [address] Bonnie Naik [address] [place] [address] documented as of this encounter Procedures Procedure Name Priority Date/Time Associated Diagnosis Comments DIABETES EYE EXAM Routine 01/28/2025 10:43 AM EDT documented in this encounter Results * Hm Diabetes Eye Exam (01/28/2025 10:43 AM EDT) Historical Provider HEALTH MAINTENANCE Final Result documented in this encounter Visit Diagnoses Not on filedocumented in this encounter Care Teams Senior Security Architect Relationship Specialty Start Date End Date Jovanny Mcduffie MD [address] [place] [address] PCP - General Internal Medicine 12/09/23 Jordi Gallo DMD Dentist Dental Last Remodeler Repairer 01/02/23 documented as of this encounter
--- OUTSIDE RECORDS SUMMARY | 2025-02-26 13:28 | XMS_ITS | Encounter Summary ---
Author Organization [employer] Address [address] [place] [address] 7 [place] [address] Care Team Providers Care Analytical Scientist Name Role Phone Jordi Gallo DMD Unavailable Unavailable Jovanny Mcduffie MD Primary Care Prov ider Reason for Visit * Reason Onset Date Comments Results 07/31/2024 Encounter Details Date Type Department Care Team ([facility] st Contact Info) Description 07/31/2024 Telephone [facility] PEDS [address] [place] [address] Jovanny Mcduffie MD [address] [place] [address] Results Social History Tobacco Use Types Packs/Day [...] and urine Date when done: 07/27/24 Facility: [facility] documented in this encounter Plan of Treatment Upcoming Encounters Date Type Department Care Team (Late st Contact Info) Description 03/12/2025 9:30 AM EDT Telemedicine [facility] MED & PEDS [address] [place] [address] Jovanny Mcduffie MD [address] [place] [address] 05/10/2025 12:45 PM EST Office Visit [facility] [address] [place] [phone] Bonnie Naik [address] [place] [address] documented as of this encounter Visit Diagnoses Not on filedocumented in this encounter Care Teams Analytical Scientist Relationship Specialty Start Date End Date Jovanny Mcduffie MD [address] [place] [address] PCP - General Internal Medicine 12/09/23 Jordi Gallo DMD Dentist Dental Decorator Mannequin 01/02/23 documented as of this encounter
--- OUTSIDE RECORDS SUMMARY | 2025-02-26 13:28 | XMS_ITS | Encounter Summary ---
Author Organization [facility] Address [facility] [employer] [facility] [address] [place] [address] Phone Care Team Providers Care Desk Representative Name Role Phone Elicia Powell MD Primary Care Provider [phone] Elicia Powell MD Unavailable [phone] Encounter Details Date Type Department Care Team (Late st Contact Info) Description 12/08/2020 Procedure Pass [facility], [address] [address] Social History Tobacco Use Types Packs/Day Years [...] high school, GED, job training, learning the Yi language, technical skills, or developing parenting skills)? [...] documented as of this encounter Care Teams Desk Representative Relationship Specialty Start Date End Date Elicia Powell MD [address] [place] [address] [address] [place] [address] PCP - General Family Medicine 09/30/20 Elicia Powell MD [address] [place] [address] Pradeep. [address] [place] [address] Insurance Assigned Provider 12/03/20 documented as of this encounter Additional Source Comments The information contained in this document represents components of the legal health record. It is not the complete legal health record.[facility]
--- OUTSIDE RECORDS SUMMARY | 2025-02-26 13:28 | XMS_ITS | Encounter Summary ---
Author Organization [facility] Address Replaced by [facility] [address] [address] Phone Care Team Providers Care Baffle Installer Name Role Phone Chinyere Murray DO Primary Care Provider [phone]- [phone] Chinyere Murray DO Primary Care Provider [phone]- [phone] Elicia Powell MD Primary Care Provider [phone] Elicia Powell MD Unavailable [phone] Encounter Details Date Type Department Care Team (Late st Contact Info) Description 07/07/2020 Procedure Pass [facility], [address] [phone] Social History Tobacco Use Types Packs/Day Years [...] high school, GED, job training, learning the Surinamese language, technical skills, or developing parenting skills)? [...] on filedocumented in this encounter Care Teams Baffle Installer Relationship Specialty Start Date End Date Chinyere Murray DO [address] [place] [address] [email or web address] PCP - General Family Medicine 10/15/18 07/07/20 Chinyere Murray DO [address] [place] [phone] [email or web address] PCP - General Family Medicine 07/08/20 09/29/20 Elicia Powell MD [address] [place] [address] [email or web address] PCP - General Family Medicine 09/30/20 Elicia Powell MD [address] [place] [address] [email or web address] Insurance Assigned Provider 12/03/20 02/02/23 documented as of this encounter Additional Source Comments The information contained in this document represents components of the legal health record. It is not the complete legal health record.[facility]
--- OUTSIDE RECORDS SUMMARY | 2025-02-26 13:28 | XMS_ITS | Clinical Summary ---
Author Organization [facility] Address [facility] [address] [address] Phone Care Team Providers Care Women'S Health Care Nurse Practitioner Name Role Phone Elicia Powell MD Primary Care Provider Allergies No known active allergies Medications clindamycin [...] exams. She declines a referral to a hospice team lead. USPSTF A&B recommendations reviewed with pt. BP: [...] next year: long h/o infertility. has seen BABY FORMULA WORKER, but is likely perimenopausal with irregular periods [...] can consider at older ages: Referred to [facility] Assessment & Plan (06/07/2021 2:12 PM [...] has the structure in place for her ekwjll-[id number]-gaw, there is no reason they cannot simply [...] next year: Planning or actively trying: seeing BABY FORMULA WORKER for infertility although she is aware the [...] can consider at older ages: Referred to [facility] Irregular menses 01/18/2021 Assessment & Plan [...] but may not yet be on the [facility] [employer] formulary. I do not know for sure. [...] end organ damage from poorly controlled diabetes: [place], CVA, CKD, blindness, vulnerability to infection. The Jardiance has led to modest weight loss but is not sufficient for glucose control. There is much room for improvement in diet: MUCH less candy, no soda, no sugar in coffee, more fruits/veg, no more chips... Ana does not feel it would be helpful to see a hospice team lead because she has done so several times [...] not more than 2 tablespoons of an Azeri or vinaigrette dressing at 12 PM and 6 PM. At the 6:00 meal she may have a half a cup of carbohydrate. Patient has option of consuming a piece of fruit which may be a pair, 2 kiwi's, an apple at 8 PM. 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 Not on file Not on file Not [...] 02/09/2020 VIRTUAL COLONOSCOPY 02/09/2020 MAMMOGRAM 02/16/2023 02/16/2021, 03/0 08/2020, 02/25/2020, Additional history exists DIABETIC EYE EXAM 05/29/2023 05/29/2022, 01/09/2019 BLOOD PRESSURE 01/01/2024 07/03/2023 HEMOGLOBIN A1C 01/01/2024 07/03/2023, 01/25, 02/07/2023, Additional history exists CREATININE LEVEL 2024 02/07/2023, , 12/08/2020, Additional history exists DEPRESSION SCREENING 2024 02/07/2023 POTASSIUM LEVEL 2024 02/07/2023, 04/26, 12/08/2020, Additional history exists INFLUENZA VACCINE (#1) 2024 COVID-19 VACCINE ( season) 2025 03/18/2021, 09/16/2020, 08/24/2020 PAP SMEAR 02/07/2025 2020, 2020 ZOSTER VACCINES (1 of 2) 2025 Adult Td,Tdap Booster 06/05/2031 06/05/2021, 010 HEPATITIS C SCREENING Completed 12/08/2020, 021 PNEUMOCOCCAL VACCINES (50+ years) Completed 05/01/2022 HEPATITIS A VACCINES Aged [...] POCT Hemoglobin A1c (07/03/2023 10:53 AM EST) Pathologist [facility] Hemoglobin A1c 6.1(A) 4.2 - 5.8 % [facility] Other 07/03/2023 10:5 3 AM EST Elicia Powell MD POINT OF CARE TEST ORDERABLE S Final Result [facility] [address] [place] [address], [facility] * Basic metabolic panel (02/07/2023 2:05 PM EDT) SODIUM 136 133 - 146 mmol/L [facility] CHLORIDE 100 96 - 108 mmol/L [facility] POTASSIUM 4.5 3.3 - 5.1 mmol/L [facility] CO2 27 21 - 35 mmol/L [facility] BUN 16 6 - 19 mg/dL [facility] CREATININE 0.70 0.5 - 1.5 mg/dL [facility] GLUCOSE 99 70 - 99 mg/dL [facility] CALCIUM 9.5 8.4 - 10.3 mg/dL [facility] EGFR 107 >59 mL/min/1.7 3m2 [facility] Comment:Estimated glomerular filtration rate calculated using the CKD-EPI refit equation. ANION GAP 14 10 - 20 mmol/L [facility] Blood 02/07/2023 2:05 PM EDT 02/07/2023 2:17 PM EDT us Elicia Powell MD LAB BLOOD ORDERABLES Final R esult [address] [address] * DIABETES EYE EXAM FOR RESULT ENTRY [...] DUE DATE: 12 Months Right Mammography Screening us Elicia Powell MD IMG MG EXAMS Final Result * Hepatitis C antibody, qualitative (12/08/2020 12:24 PM EDT) HCV NON-REACTIV E NON-REACTI VE [facility] Blood 12/08/2020 12:2 4 PM EDT 12/08/2020 12:28 PM EDT us Chinyere Murray DO LAB BLOOD ORDERABLES Final Result [address] [address] * Pap Smear (2020 12:00 AM EDT) 2020 02/09/2020 8:2 7 AM EDT Narrative SEE NARRATIVE - 02/15/2020 10:15 AM EDT [address] [address] [employer] Platemaker: Lorrie Harris MD BABY FORMULA WORKER Cytology Report FINAL DIAGNOSIS A. PAP SMEAR [...] 52, 56, 58, 59, 66, 68) by [employer] HR-HPV analysis. Clinical correlation is advised. This HPV test was performed at [facility], [address] [place] [address]. This test has been FDA approved for [employer] cervical cytology specimens. The accuracy and precision of this test for all other specimen sources has been verified in the Cytopathology Laboratory of the [facility] and has not been cleared or approved by the U.S. Food and Drug Administration. Clinical correlation is advised. CLINICAL HISTORY Date of Last Menstrual Period: Not Provided Menstrual History: Sadie-Menopausal Other Clinical Conditions: Screening Pap SPECIMEN SOURCE A: PAP SMEAR (SUREPATH) CE Patient Name: ANA ARMIJO : 1975 (Age: 45) Sex: F Institution: [facility] Location: [facility] Date of Collection: 2020 Date of Reported: 02/15/2020 10:15 Results to: Chinyere Murray DO Chinyere Murray DO CYTOLOGY ORDERABLES Final Result SEE NARRATIVE from Last 3 Months or Most Recently Relevant to Health Maintenance Insurance C3 ACO ACO C3 ACO C3 ACO Care Teams Women'S Health Care Nurse Practitioner Relationship Specialty Start Date End Date Elicia Powell MD [address] [place] [address] [email or web address] PCP - General Family Medicine 09/30/20 Additional Source Comments The information contained in this document represents components of the legal health record. It is not the complete legal health record.[facility]
== END 2025-02-26 14:15 | disposition home or self-care (01) ==
LOC: HO.HOS 13:06
PROVIDERS: Visit Provider Physician Assistant
DX: M17.0 Bilateral primary osteoarthritis of knee (principal)
CPT/HCPCS: 20610

== ENCOUNTER → 2025-02-26 13:06 | Outpatient (BNVA) | payer MEDICAID, SELFPAY | PROVIDERS: Visit Provider Physician Assistant | DX: M17.0 Bilateral primary osteoarthritis of knee (principal) | CPT/HCPCS: 20610; J7323 ==

== ENCOUNTER 2025-03-05 08:57 | Outpatient (AMB) | payer MEDICAID, SELFPAY ==
--- NOTE | 2025-03-05 09:05 | A.OFFVIS_ITS ---
Vital Signs 03/05/25 09:05 Height 5 ft 6 in Intake Visit Reasons: Bilat Knee Euflexxa Gel Injection #2 Intake Note: Ana is a 50 year old female who presents today for her bilateral knee Euflexxa gel injections #2. Patient reports no changes in her pain yet. Allergies No Known Allergies Allergy (Verified 03/05/25 09:05) HPI HPI Bilat Knee Euflexxa Gel Injection #2: Details: Ms. Armijo is a 50-year-old female who presents to the office today for bilateral knee Euflexxa # 2 injections. 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 Tenderness to palpation along the medial or lateral joint lines. Full knee extension and flexion. NVI. Psych Appearance: grossly normal Mental Status: mental status grossly normal Attitude: cooperative Office Procedures AMB Joint Injection/Aspiration Joint Injection/Aspiration Primary Site: right knee Secondary Site: left knee Prep: site was prepped using aseptic technique, ethochloride spray was applied and injection warnings given Injected: in the joint (Euflexxa #2) Approach Used: anterolateral Procedure: The patient tolerated the procedure well, but had some pain with the injection and there was some relief with the local anesthesia Coding 95038 - Bilateral Large Joint Procedure code (CPT) selection complete Assessment & Plan Assessment & Plan (1) Osteoarthritis of knees, bilateral: Code(s): M17.0 - Bilateral primary osteoarthritis of knee Category: Medical Plan The patient was offered Euflexxa # 2 in bilateral knees l. The patient was explained the risks, benefits, and alternatives to receiving this injection. After receiving consent for the injection, the patient had the procedure done while in the office today. The patient tolerated the procedure well with no complications. Follow-up will be 1 week for Euflexxa #3 in bilateral knees, or sooner if needed Coding Level of Care Code Procedure Only Diagnoses Osteoarthritis of knees, bilateral M17.0 CPT Codes Coding - - Bilateral Large Joint: - Bilateral Large Joint ([id number])
--- OUTSIDE RECORDS SUMMARY | 2025-03-05 09:18 | XMS_ITS | Encounter Summary ---
Author Organization [employer] Address [address] [facility] 7 [place] [address] Care Team Providers Care Retail Event And Sales Assistant Name Role Phone Jordi Gallo DMD Unavailable Unavailable Jovanny Mcduffie MD Primary Care Prov ider Reason for Visit * Reason Onset Date Comments Medication Question 07/17/2024 Encounter Details Date Type Department Care Team ([facility] st Contact Info) Description 07/17/2024 Telephone [facility] [address] [place] [address] Jovanny Mcduffie MD [address] [place], [place] [phone] Medication Question Social History Tobacco Use Types [...] on the Same one. Contact pt at [phone] documented in this encounter Plan of Treatment Upcoming Encounters Date Type Department Care Team (Late st Contact Info) Description 03/23/2025 10:30 AM EDT Telemedicine [facility] MED & PEDS [address] [place] [address] Jovanny Mcduffie MD [address] [place] [address] 05/10/2025 12:45 PM EST Office Visit [facility] [address] [place] [phone] Bonnie Naik [address] [place] [address] documented as of this encounter Visit Diagnoses Not on filedocumented in this encounter Care Teams Retail Event And Sales Assistant Relationship Specialty Start Date End Date Jovanny Mcduffie MD [address] [place] [address] PCP - General Internal Medicine 12/09/23 Jordi Gallo DMD Dentist Dental Senior Linux Systems Administrator 01/02/23 documented as of this encounter
--- OUTSIDE RECORDS SUMMARY | 2025-03-05 09:18 | XMS_ITS | Clinical Summary ---
Author Organization [employer] Address 75 [facility] 7t [place] [address] Care Team Providers Care Workforce Advisor Name Role Phone Jordi Gallo DMD Unavailable [...] (11/09/2024 10:25 AM EDT): Fam hx of [place], she has several risk factors, had a [...] PCP follow up 6 months ago, in [facility] No er visit on the past [...] Encounters Date Type Department Care Team Description 03/01/2025 Telephone [facility] MEDICINE [address] [place] [address] Jovanny Mcduffie MD Prior Authorization 02/11/2025 11:15 AM EDT Telemedicine [facility] MED & PEDS [address] [place] [address] Jovanny Mcduffie MD Type 2 diabetes mellitus with microalbuminuria (CMS/HCC) (Primary Dx) 02/11/2025 Travel 02/10/2025 Telephone [facility] MED & PEDS [address] [place] [address] Jovanny Mcduffie MD chart prep 01/29/2025 Orders Only [facility] MED & PEDS [address] [place] [address] Мария Crawford MD 01/27/2025 Travel 01/22/2025 Telephone [facility] MEDICINE [address] [place] [address] Jovanny Mcduffie MD Medication Question 01/05/2025 1:00 PM EDT Telemedicine [facility] MED & PEDS [address] [place] [address] Jovanny Mcduffie MD Type 2 diabetes mellitus with microalbuminuria ([facility]) (Primary Dx); Primary hypertension 01/05/2025 Travel 01/01/2025 Refill [facility] MED & PEDS [address] [place] [address] Jovanny Mcduffie MD 12/15/2024 Refill [facility] MED & PEDS [address] [place] [address] Jovanny Mcduffie MD 12/08/2024 Telephone [facility] MED & PEDS [address] [place] [address] Jovanny Mcduffie MD 12/08/2024 Orders Only [facility] MED & PEDS [address] [place] [address] Jovanny Mcduffie MD 12/08/2024 Telephone [facility] MED & PEDS [address] [place] [address] Jovanny Mcduffie MD from Last 3 Months Immunizations Immunization Administration [...] Info) Description 03/23/2025 10:30 AM EDT Telemedicine [facility] MED & PEDS [address] [place] [address] Jovanny Mcduffie MD 505 [place] [address] 05/10/2025 12:45 PM EST Office Visit [facility] GR DENTAL [address] [place] [phone] Bonnie Naik [address] [place] [address] Health Maintenance Due Date Last Done Comments [...] Recently Relevant to Health Maintenance Results * Hm Diabetes Eye Exam (01/28/2025 10:43 AM EDT) us Historical Provider HEALTH MAINTENANCE Final Result * Stress test with myocardial perfusion (01/05/2025 8:07 AM EDT) 01/05/2025 8:07 AM EDT Narrative [facility] - 01/07/2025 3:12 PM EDT [place] [address] Nuclear Medicine Report Signed Patient: Ana Armijo MR#: [id number] 9 : 1975 Acct:[id number] Age/Sex: 49 / F ADM Date: 01/05/25 Loc: [facility] Attending Dr: Jovanny Worthy MD Ordering Physician: Jovanny Mcduffie MD Date of Service: 01/05/25 Procedure(s): NM cardiolite stress test Accession Number(s): [id number] cc: Jovanny Mcduffie MD EXERCISE MYOCARDIAL PERFUSION [...] 01/07/25 1509 DD/ 0807 TD/TT: 01/07/25 0815 Grinder Dresser: Procedure Note Donotuseinterpreter, Image - 01/07/[address] [address] Nuclear Medicine Report Signed Patient: Keena Armijo#: [id number] 9 : 1975Acct:[id number] Age/Sex: 49 / FADM Date: 01/05/25 Loc: [facility] Attending Dr: Jovanny Worthy MD Ordering Physician: Jovanny Mcduffie MD Date of Service: 01/05/25 Procedure(s): NM cardiolite stress test Accession Number(s): [id number] cc: Jovanny Mcduffie MD EXERCISE MYOCARDIAL PERFUSION [...] MD 01/07/2025 03:09 PM EDT RP Workstation: [employer] Dictated By: Ramos Banuelos MD Signed By: <Electronically signed by Ramos Banuelos MD inOV> 01/07/25 1509 DD/ 0807 TD/TT: 01/07/25 0815 Grinder Dresser: Jovanny Worthy MD CV STRESS PROCEDUR ES Final Result [facility] [address] [place] [address] [phone] * (ABNORMAL) POCT HGB A1C (11/30/2024 2:24 PM EDT) Pathologist [facility] Hemoglobin A1C 7.2(A) 4.0 - 5.7 % Blood 11/30/2024 2:24 PM EDT Jovanny Worthy MD POINT OF CARE TEST ENTER/EDIT ORDERABLES Final Result * (ABNORMAL) Lipid Panel, Standard (07/27/2024 2:30 PM EST) Pathologist [facility] Triglycerides 170(H) <150 mg/dL [facility] Comment:Desirable Triglyceri de: less than 150 mg/dLBorderline High Triglyceride 150-199 mg/dLHigh Triglyceride: 200-499 mg/dLVery High Triglyceride: greater than or equal to 5OO mg/dL Cholesterol 123 <200 mg/dL [facility] Comment:Desirable Cholestero l: less than 200 mg/dLBorderline High Cholesterol: 200-239 mg/dLHigh Cholesterol: greater than 239 mg/dL LDL Cholesterol Calculated 65 <100 mg/dL [facility] Comment:Desirable LDL: less than 100 mg/dLNear Optimal/Above Optimal LDL: 110- 129 mg/dLBorderline High LDL: 130-159 mg/dLHigh LDL: 160-189 mg/dLVery High LDL: greater than or equal to 190 mg/dL HDL Cholesterol 24(L) >40 mg/dL [facility] Comment:Desirable HDL: great er than 40 mg/dL Note: This HDL assay may give artificially low results in patients with liver disease. Blood Venous blood specimen / Unknown 07/27/2024 2:30 PM EST 07/27/2024 5:45 PM EST Jovanny Worthy MD LAB BLOOD ORDERABL ES Final Result [facility] [address] [place] [phone] * Pap Smear (04/07/2024 11:20 AM EST) Swab Cervix uteri structure / Unknown 04/07/2024 11:20 AM EST 04/08/2024 11:00 AM EST Narrative [facility] - 05/01/2024 11:20 AM EST ----- ------- Name: Ana Armijo Age/Sex: 49/F : 1975 Unit#: [id number] Attend Dr: Jailene Ding MD Re04/07/24 Status: DEP REF Location: [facility] Disch: ----- ------- SPEC : [id number] RECD: 04/08/24 STATUS: MONA CORONEL NUM: [id number] CONNOR: 04/07/[address] [facility] [address]: Jailene Ding MD ENTERED: 04/08/24 SP [...] CYTOLOGY ORDERABLES Final Result Performing Organization Address [facility] de Phone Number [facility] [address] [place] [phone] * HPV mRNA E6/E7 w/Reflex to HPV Genotypes 16, 18/45 (04/07/2024 12:00 AM EST) Historical Provider LAB CYTOLOGY ORDERABLES F inal Result Performing Organization Address [facility] de Phone Number [facility] [address] [place] [address] [phone] * Hepatitis C Antibody with Reflex to HCV, RNA, Quantitative, Real-Time PCR (01/09/2024 8:21 AM EDT) Hepatitis C Antibody Nonreactive Nonreactive [facility] Comment:Antibodies to HCV no t detected; does not exclude early acuteHCV infection. Blood Venous blood specimen / Unknown 01/09/2024 8:21 AM EDT 01/09/2024 2:04 PM EDT Jovanny Worthy MD LAB BLOOD ORDERABL ES Final Result Performing Organization Address [facility] de Phone Number [facility] [address] [place] [address] [phone] * HIV-1/2 Antigen and Antibodies, Fourth Generation, with Reflexes (01/09/2024 8:21 AM EDT) HIV AB/AG Nonreactive Nonreactive [facility] Comment:HIV-1 p24 Ag and/or HIV-1/HIV-2 Ab not detected.A test result that is nonreactive does not exclude thepossibility of exposure to or infection with HIV-1 and/orHIV-2. Nonreactive results in this assay for individualswith prior exposure to HIV-1 and/or HIV-2 may be due toantigen and antibody levels that are below the limit ofdetection of this assay.The [email or web address] HIV Ag/Ab Combo assay result andsupplemental assay results should be interpreted inconjunction with the patient's clinical presentation,history and other laboratory results. If the results areinconsistent with clinical evidence, additional testing issuggested to confirm the result. Blood Venous blood specimen / Unknown 01/09/2024 8:21 AM EDT 01/09/2024 2:04 PM EDT us Jovanny Worthy MD LAB BLOOD ORDERABL ES Final Result [facility] [address] [place] [phone] * BI Mammogram Screening Tomosynthesis Bilateral (01/01/2024 1:45 PM EDT) Anatomical Region Laterality Modality Breast Bilateral Mammography 01/01/2024 1:45 PM EDT Narrative 01/28/2024 7:48 AM EDT [facility] [address] [place] [address] Mammography Report Signed Patient: Ana Armijo MR#: [id number] 9 : 1975 Acct:[id number] Age/Sex: 48 / F ADM Date: 01/01/24 Loc: HO.MAMMO Attending Dr: Jovanny Worthy MD Ordering Physician: Jovanny Mcduffie MD Res ults: 2Benign Findings Date of Service: 01/01/24 Follow Up: 1 Year From Orig inal Mammogram Procedure(s): MM tomosynthesis screening BI Accession Number(s): [id number] cc: Jovanny Mcduffie MD EXAMINATION: MM SCREENING [...] 01/28/24 0745 DD/ 1345 TD/TT: 01/01/24 1400 Grinder Dresser: Procedure Note Donotuseinterpreter, Image - 01/28/2024 [facility] [address] [place] [address] Mammography Report Signed Patient: Keena Armijo#: [id number] 9 : 1975Acct:[id number] Age/Sex: 48 / FADM Date: 01/01/24 Loc: [facility] Attending Dr: Jovanny Worthy MD Ordering Physician: Jovanny Mcduffie ults: 2Benign Findings Date of Service: 01/01/24Follow Up: 1 Year From Orig inal Mammogram Procedure(s): MM tomosynthesis screening BI Accession Number(s): [id number] cc: Jovanny Mcduffie MD EXAMINATION: MM SCREENING [...] 01/28/24 0745 DD/ 1345 TD/TT: 01/01/24 1400 Grinder Dresser: Jovanny Worthy MD IM BI PROCEDURES Final Result * Cologuard?? colon cancer screening (12/20/2023 9:40 AM EDT) Cologuard Result Negative Negative 12/28/19 3:[address] (CLIA #:[id number]) Comment: NEGATIVE TEST RESULT. A negative Cologuard [...] (Pavan Pacheco al, N Engl J Med 2014;370(14):6416-1282) The normal value (reference range) for this assay is negative. COLOGUARD RE-SCREENING RECOMMENDATION: Periodic colorectal cancer screening is an important part of preventive healthcare for asymptomatic individuals at average risk for colorectal cancer. Following a negative Cologuard result, the [employer] Cancer Society and U.S. Multi-Society Task Force screening guidelines recommend a Cologuard re-screening interval of 3 years. References: [place] Cancer Society Guideline for Colorectal Cancer Screening: https://www.cancer.org/cancer/hdspf-cklzaz-pjcdiw/uqtpelaxm-mmgokqynf-lrdhwhh/ac s-rec ommendations.html.; Jase DK, Sridhar PARADA, Tom MaradiagaK, Colorectal Cancer Screening: Recommendations for Physicians and Patients from the U.S. Multi-Society Task Force on Colorectal Cancer Screening , Am J Gastroenterology 2017; 112:2399-6597. TEST DESCRIPTION: Composite algorithmic analysis of stool [...] (Pavan Pacheco al, N Engl J Med 2014;370(14):5435-6883.) Cologuard may produce a false negative or false positive result (no colorectal cancer or precancerous polyp present at colonoscopy follow up). A negative Cologuard test result does not guarantee the absence of CRC or advanced adenoma (pre-cancer). The current Cologuard screening interval is every 3 years. ([employer] Cancer Society and U.S. Multi-Society Task Force). Cologuard performance data in a 10,000 patient pivotal study using colonoscopy as the reference method can be accessed at the following location: www.WeYAP.com/results. Additional description of the Cologuard test process, warnings and precautions can be found at www.Youxiguoguard.[employer]. Stool specimen (specimen) 12/20/2023 9:40 AM EDT 12/23/2023 11:04 AM EDT Jovanny Worthy MD LAB MOLECULAR DIAG NOSTICS ORDERABLES Final Result [facility] (CLIA #:[id number]) [address] [place] [address], from Last 3 Months or Most Recently Relevant to Health Maintenance Insurance [facility] C3 [facility] C3 [facility] MEDICAID STAND ADULT DENTAL - HSN FULL (MEDICAID) Care Teams Workforce Advisor Relationship Specialty Start Date End Date RosenJovanny Middleton MD [address] [place] [phone] PCP - General Internal Medicine 12/09/23 Jordi Gallo DMD Dentist Dental Hand Trucker 01/02/23
--- OUTSIDE RECORDS SUMMARY | 2025-03-05 09:18 | XMS_ITS | Encounter Summary ---
Author Organization [employer] Address [address] [facility] [address] 7t [place] [address] Care Team Providers Care Marketing Technology Coordinator Name Role Phone Jordi Gallo DMD Unavailable Unavailable Jovanny Mcduffie MD Primary Care Prov ider Encounter Details Date Type Department Care Team (Late st Contact Info) Description 09/22/2024 Orders Only [facility] MED & PEDS [address] [place], [place] [phone] Calli Garcia Social History Tobacco Use Types [...] Info) Description 03/23/2025 10:30 AM EDT Telemedicine [facility] MED & PEDS [address] [place] [address] Jovanny Mcduffie MD 505 [place] [address] 05/10/2025 12:45 PM EST Office Visit [facility] GR DENTAL [address] [place] [phone] Bonnie Naik [address] [place] [address] documented as of this encounter Procedures Procedure Name Priority Date/Time Associated Diagnosis Comments HPV MRNA E6/E7 REFLEX TO HPV 16, 18/45 Routine 04/07/2024 12:00 AM EST documented in this encounter Results * HPV mRNA E6/E7 w/Reflex to HPV Genotypes 16, 18/45 (04/07/2024 12:00 AM EST) us Historical Provider LAB CYTOLOGY ORDERABLES F inal Result [facility] [address] [place] [address] [phone] documented in this encounter Visit Diagnoses Not on filedocumented in this encounter Care Teams Marketing Technology Coordinator Relationship Specialty Start Date End Date Jovanny Mcduffie MD [address] [place] [address] PCP - General Internal Medicine 12/09/23 Jordi Gallo DMD Dentist Dental Clerk Specialist 01/02/23 documented as of this encounter
--- OUTSIDE RECORDS SUMMARY | 2025-03-05 09:18 | XMS_ITS | Encounter Summary ---
Author Organization [employer] Address [address] [place] [address] Care Team Providers Care Correctional Security Officer Name Role Phone Jordi Gallo DMD Unavailable Unavailable Jovanny Mcduffie MD Primary Care Prov ider Reason for Visit * Reason Onset Date Comments Nurse Triage 12/20/2023 Med Refill 12/20/2023 Encounter Details Date Type Department Care Team ([facility] st Contact Info) Description 12/20/2023 Telephone [facility] MEDICINE [address] [place] [address] Jovanny Mcduffie MD [address] [place], [place] [phone] Nurse Triage; Med Refill Social History Tobacco [...] Info) Description 03/23/2025 10:30 AM EDT Telemedicine [facility] MED & PEDS [address] [place] [address] Jovanny Mcduffie MD 505 [place] [address] 05/10/2025 12:45 PM EST Office Visit [facility] [address] [place] [phone] Bonnie Naik [address] [place] [address] documented as of this encounter Visit Diagnoses Not on filedocumented in this encounter Care Teams Correctional Security Officer Relationship Specialty Start Date End Date Jovanny Mcduffie MD [address] [place] [phone] PCP - General Internal Medicine 12/09/23 Jordi Gallo DMD Dentist Dental Used Car Lot Attendant 01/02/23 documented as of this encounter
--- OUTSIDE RECORDS SUMMARY | 2025-03-05 09:18 | XMS_ITS | Encounter Summary ---
Author Organization [employer] Address 75 [facility] 7 [place] [address] Care Team Providers Care Pension Consultant Name Role Phone Jordi Gallo DMD Unavailable Unavailable Jovanny Mcduffie MD Primary Care Prov ider Reason for Visit * Reason Onset Date Comments Medication Question 07/10/2024 Encounter Details Date Type Department Care Team ([facility] st Contact Info) Description 07/10/2024 Telephone [facility] MEDICINE [address] [place] [address] Jovanny Mcduffie MD [address] [place], [place] [phone] Medication Question Social History Tobacco Use Types [...] need blood work regarding zepbound and diabetes. [phone] documented in this encounter Plan of Treatment Upcoming Encounters Date Type Department Care Team (Late st Contact Info) Description 03/23/2025 10:30 AM EDT Telemedicine [facility] MED & PEDS [address] [place] [address] Jovanny Mcduffie MD 505 [place] [address] 05/10/2025 12:45 PM EST Office Visit [facility] [address] [place] [phone] Bonnie Naik [address] [place] [address] documented as of this encounter Visit Diagnoses Not on filedocumented in this encounter Care Teams Pension Consultant Relationship Specialty Start Date End Date Jovanny Mcduffie MD 505 [place] [address] PCP - General Internal Medicine 12/09/23 Jordi Gallo, KHALIF Dentist Dental Rn Clinical Documentation Specialist 01/02/23 documented as of this encounter
--- OUTSIDE RECORDS SUMMARY | 2025-03-05 09:18 | XMS_ITS | Encounter Summary ---
Author Organization [employer] Address 75 [facility] 7 [place] [address] Care Team Providers Care Manager Package Name Role Phone Jordi Gallo DMD Unavailable Unavailable Jovanny Mcduffie MD Primary Care Prov ider Encounter Details Date Type Department Care Team (Late st Contact Info) Description 07/31/2024 Orders Only [facility] CHC MED & PEDS [address] [place], [place] [phone] Jovanny Mcduffie MD 505 [place] [address] Dietary counseling; Exercise counseling Social History Tobacco [...] Info) Description 03/23/2025 10:30 AM EDT Telemedicine [facility] MED & PEDS [address] [place] [address] Jovanny Mcduffie MD 505 [place] [address] 05/10/2025 12:45 PM EST Office Visit [facility] [address] [place] [phone] Bonnie Naik [address] [place] [address] documented as of this encounter Visit Diagnoses Diagnosis Dietary counseling Dietary surveillance and counseling Exercise counseling documented in this encounter Care Teams Manager Package Relationship Specialty Start Date End Date Jovanny Mcduffie MD 505 [place] [address] PCP - General Internal Medicine 12/09/23 Jordi Gallo DMD Dentist Dental Heel Reducer 01/02/23 documented as of this encounter
--- OUTSIDE RECORDS SUMMARY | 2025-03-05 09:18 | XMS_ITS | Encounter Summary ---
Author Organization [employer] Address [address] [place] [address] Care Team Providers Care Custom Bike Builder Name Role Phone Jordi Gallo DMD Unavailable Unavailable Elicia Powell MD Primary Care Provider [phone] Jovanny Mcduffie MD Primary Care Prov ider [...] Info) Description 03/23/2025 10:30 AM EDT Telemedicine [facility] MED & PEDS [address] [place] [address] Jovanny Mcduffie MD 505 [place] [address] 05/10/2025 12:45 PM EST Office Visit [facility] [address] [place] [phone] Bonnie Naik [address] [place] [address] documented as of this encounter Visit Diagnoses Not on filedocumented in this encounter Care Teams Custom Bike Builder Relationship Specialty Start Date End Date Elicia Powell MD [address] [place] [phone] PCP - General Family Medicine 01/02/23 12/03/23 Jovanny Mcduffie MD [address] [place] [phone] PCP - General Internal Medicine 12/09/23 Jordi Gallo DMD Dentist Dental Health Aid 01/02/23 documented as of this encounter
--- OUTSIDE RECORDS SUMMARY | 2025-03-05 09:18 | XMS_ITS | Encounter Summary ---
Author Organization [employer] Address [address] [place] [address] Care Team Providers Care Shore Man Name Role Phone Jordi Gallo DMD Unavailable [...] Info) Description 03/23/2025 10:30 AM EDT Telemedicine [facility] MED & PEDS [address] [place] [address] Jovanny Mcduffie MD 505 [place] [address] 05/10/2025 12:45 PM EST Office Visit [facility] [address] [place] [phone] Bonnie Naik 102 [place] [address] documented as of this encounter Visit Diagnoses Not on filedocumented in this encounter Care Teams Shore Man Relationship Specialty Start Date End Date Elicia Powell MD [address] [place] [address] [address] [place] [address] PCP - General Family Medicine 01/02/23 12/03/23 Jovanny Mcduffie MD [address] [place] [phone] PCP - General Internal Medicine 12/09/23 Jordi Gallo DMD Dentist Dental Welding Process Engineer 01/02/23 documented as of this encounter
--- OUTSIDE RECORDS SUMMARY | 2025-03-05 09:18 | XMS_ITS | Encounter Summary ---
Author Organization [employer] Address [address] [place] [address] Care Team Providers Care Junior Engineer Name Role Phone Jordi aGllo DMD Unavailable Unavailable Elicia Powell MD Primary [...] Info) Description 03/23/2025 10:30 AM EDT Telemedicine [facility] MED & PEDS 505 [place] [address] Jovanny Mcduffie MD 505 [place] [address] 05/10/2025 12:45 PM EST Office Visit [facility] [address] [place] [phone] Bonnie Naik [address] [place] [address] documented as of this encounter Visit Diagnoses Not on filedocumented in this encounter Care Teams Junior Engineer Relationship Specialty Start Date End Date Elicia Powell MD [address] [place] [address] [address] [place] [address] PCP - General Family Medicine 01/02/23 12/03/23 Jovanny Mcduffie MD [address] [place] [address] PCP - General Internal Medicine 12/09/23 Jordi Gallo DMD Dentist Dental Lay Out And Detail Drafter 01/02/23 documented as of this encounter
--- OUTSIDE RECORDS SUMMARY | 2025-03-05 09:18 | XMS_ITS | Encounter Summary ---
Author Organization [employer] Address 75 [facility] 7 [place] [address] Care Team Providers Care Licensed Marine Engineer Name Role Phone Jordi Gallo DMD Unavailable Unavailable Jovanny Mcduffie MD Primary Care Prov ider Reason for Visit * Reason Onset Date Comments Prior Authorization 03/01/2025 Encounter Details Date Type Department Care Team ([facility] st Contact Info) Description 03/01/2025 Telephone [facility] MEDICINE [address] [place] [address] Jovanny Mcduffie MD [address] [place], [place] [phone] Prior Authorization Social History Tobacco Use Types Packs/Day Years [...] encounter Miscellaneous Notes * Telephone Encounter - Rashida Vidales LPN - 03/01/2025 11:53 AM EDT Pa generated and faxed MH Tc from pt stating Zepbound medication needs a PA. If any questions contact pt at [phone]. * Telephone Encounter - Yonny Jordan - 03/01/2025 10:28 AM EDT Tc from pt stating Zepbound medication needs a PA. If any questions contact pt at [phone]. documented in this encounter Plan of Treatment Upcoming Encounters Date Type Department Care Team (Late st Contact Info) Description 03/23/2025 10:30 AM EDT Telemedicine [facility] MED & PEDS [address] [place] [address] Jovanny Mcduffie MD 505 [place] [address] 05/10/2025 12:45 PM EST Office Visit [facility] [address] [place] [phone] Bonnie Naik [address] [place] [address] documented as of this encounter Visit Diagnoses Not on filedocumented in this encounter Care Teams Licensed Marine Engineer Relationship Specialty Start Date End Date Jovanny Mcduffie MD [address] [place] [address] PCP - General Internal Medicine 12/09/23 Jordi Gallo DMD Dentist Dental Senior Risk Analyst 01/02/23 documented as of this encounter
--- OUTSIDE RECORDS SUMMARY | 2025-03-05 09:18 | XMS_ITS | Encounter Summary ---
Author Organization [employer] Address [address] [place] [address] Care Team Providers Care Metal Casket Assembler Name Role Phone Jordi Gallo DMD Unavailable Unavailable Elicia Powell MD Primary Care Provider [phone] Jovanny Mcduffie MD Primary Care Prov ider [...] 03/23/2025 10:30 AM EDT Telemedicine [facility] MED & PEDS [address] [place] [address] Jovanny Mcduffie MD 505 [place] [address] 05/10/2025 12:45 PM EST Office Visit [facility] [address] [place] [phone] Bonnie Naik [address] [place] [address] documented as of this encounter Visit Diagnoses Not on filedocumented in this encounter Care Teams Metal Casket Assembler Relationship Specialty Start Date End Date Elicia Powell MD [address] [place] [address] PCP - General Family Medicine 01/02/23 12/03/23 Jovanny Mcduffie MD [address] [place] [address] PCP - General Internal Medicine 12/09/23 Jordi Gallo DMD Dentist Dental Music Intern 01/02/23 documented as of this encounter
--- OUTSIDE RECORDS SUMMARY | 2025-03-05 09:19 | XMS_ITS | Encounter Summary ---
Author Organization [employer] Address [address] [facility] [address] [place] [address] Care Team Providers Care Portable Sawyer Name Role Phone Jordi Gallo DMD Unavailable Unavailable Jovanny Mcduffie MD Primary Care Prov ider Encounter Details Date Type Department Care Team (Late st Contact Info) Description 01/29/2025 Orders Only [facility] & PEDS [address] [place], [place] [phone] Provider, MD Мария Social History Tobacco Use [...] Info) Description 03/23/2025 10:30 AM EDT Telemedicine [facility] MED & PEDS 505 [place] [address] Jovanny Mcduffie MD 505 [place] [address] 05/10/2025 12:45 PM EST Office Visit [facility] [address] [place] [address] Bonnie Naik [address] [place] [address] documented as of this encounter Procedures Procedure Name Priority Date/Time Associated Diagnosis Comments DIABETES EYE EXAM Routine 01/28/2025 10:43 AM EDT documented in this encounter Results * Hm Diabetes Eye Exam (01/28/2025 10:43 AM EDT) Historical Provider HEALTH MAINTENANCE Final Result documented in this encounter Visit Diagnoses Not on filedocumented in this encounter Care Teams Portable Sawyer Relationship Specialty Start Date End Date Jovanny Mcduffie MD [address] [place] [address] PCP - General Internal Medicine 12/09/23 Jordi Gallo DMD Dentist Dental Senior Construction Estimator 01/02/23 documented as of this encounter
--- OUTSIDE RECORDS SUMMARY | 2025-03-05 09:19 | XMS_ITS | Encounter Summary ---
Author Organization [employer] Address [address] [facility] 7 [place] [address] Care Team Providers Care Bottle Packing Machine Cleaner Name Role Phone Jordi Gallo DMD Unavailable Unavailable Jovanny Mcduffie MD Primary Care Prov ider Encounter Details Date Type Department Care Team (Late st Contact Info) Description 12/08/2024 Orders Only [facility] MED & PEDS [address] [place], [place] [phone] Jovanny Mcduffie MD 505 [place] [address] Social History Tobacco Use Types Packs/Day Years [...] Info) Description 03/23/2025 10:30 AM EDT Telemedicine [facility] MED & PEDS [address] [place] [address] Jovanny Mcduffie MD [address] [place] [address] 05/10/2025 12:45 PM EST Office Visit [facility] [address] [place] [phone] Bonnie Naik 102 [place] [address] documented as of this encounter Visit Diagnoses Not on filedocumented in this encounter Care Teams Bottle Packing Machine Cleaner Relationship Specialty Start Date End Date Jovanny Mcduffie MD [address] [place] [address] PCP - General Internal Medicine 12/09/23 Jordi Gallo DMD Dentist Dental Sanitation Worker Hosing Machinery 01/02/23 documented as of this encounter
--- OUTSIDE RECORDS SUMMARY | 2025-03-05 09:19 | XMS_ITS | Encounter Summary ---
Author Organization [employer] Address [address] [place] [address] 7 [place] [address] Care Team Providers Care Splitting Machine Operator Helper Name Role Phone Jordi Gallo DMD Unavailable Unavailable Jovanny Mcduffie MD Primary Care Prov ider Reason for Visit * Reason Onset Date Comments Results 07/31/2024 Encounter Details Date Type Department Care Team ([facility] st Contact Info) Description 07/31/2024 Telephone [facility] MED & PEDS [address] [place] [address] Jovanny Mcduffie MD 505 [place] [address] Results Social History Tobacco Use Types Packs/Day [...] and urine Date when done: 07/27/24 Facility: [facility] documented in this encounter Plan of Treatment Upcoming Encounters Date Type Department Care Team (Late st Contact Info) Description 03/23/2025 10:30 AM EDT Telemedicine [facility] MED & PEDS [address] [place] [address] Jovanny Mcduffie MD 505 [place] [address] 05/10/2025 12:45 PM EST Office Visit [facility] [address] [place] [phone] Bonnie Naik [address] [place] [address] documented as of this encounter Visit Diagnoses Not on filedocumented in this encounter Care Teams Splitting Machine Operator Helper Relationship Specialty Start Date End Date Jovanny Mcduffie MD [address] [place] [address] PCP - General Internal Medicine 12/09/23 Jordi Gallo DMD Dentist Dental Sanitarian Aide 01/02/23 documented as of this encounter
== END 2025-03-05 09:13 | disposition home or self-care (01) ==
LOC: HO.HOS 08:57
PROVIDERS: Visit Provider Physician Assistant
DX: M17.0 Bilateral primary osteoarthritis of knee (principal)
CPT/HCPCS: 20610

== ENCOUNTER → 2025-03-05 08:57 | Outpatient (BNVA) | payer MEDICAID, SELFPAY | PROVIDERS: Visit Provider Physician Assistant | DX: M17.0 Bilateral primary osteoarthritis of knee (principal) | CPT/HCPCS: 20610; J7323 ==

== ENCOUNTER 2025-03-12 12:53 | Outpatient (AMB) | payer MEDICAID, SELFPAY ==
--- NOTE | 2025-03-12 12:58 | A.OFFVIS_ITS ---
Intake Visit Reasons: B/L Knee Euflexxa Gel Injection #3 Intake Note: Ana is a 50 year old female who presents today for her bilateral knee Euflexxa gel injections #3. Patient reports her last injections are giving her mild relief. Allergies No Known Allergies Allergy (Verified 03/12/25 13:17) HPI HPI B/L Knee Euflexxa Gel Injection #3: Details: Ms. Armijo is a 50-year-old female who presents to the office today for bilateral knee Euflexxa # 3 injections. 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 Tenderness to palpation along the medial or lateral joint lines. Full knee extension and flexion. NVI. Psych Appearance: grossly normal Mental Status: mental status grossly normal Attitude: cooperative Office Procedures AMB Joint Injection/Aspiration Joint Injection/Aspiration Primary Site: right knee Secondary Site: left knee Prep: site was prepped using aseptic technique, ethochloride spray was applied a nd injection warnings given Injected: in the joint (Euflexxa #3) Approach Used: anterolateral Procedure: The patient tolerated the procedure well, but had some pain with the injection and there was some relief with the local anesthesia Coding 90708 - Bilateral Large Joint Procedure code (CPT) selection complete Assessment & Plan Assessment & Plan (1) Osteoarthritis of knees, bilateral: Code(s): M17.0 - Bilateral primary osteoarthritis of knee Category: Medical Plan The patient was offered Euflexxa # 3 in bilateral knees l. The patient was explained the risks, benefits, and alternatives to receiving this injection. After receiving consent for the injection, the patient had the procedure done while in the office today. The patient tolerated the procedure well with no complications. Follow-up p.r.n., or sooner if needed Coding Level of Care Code Procedure Only Diagnoses Osteoarthritis of knees, bilateral M17.0 CPT Codes Coding - - Bilateral Large Joint: - Bilateral Large Joint ([id number])
--- OUTSIDE RECORDS SUMMARY | 2025-03-12 15:12 | XMS_ITS | Encounter Summary ---
Author Organization [facility] Address [facility] [employer] [address] [address] Phone Care Team Providers Care Blindstitch Hemmer Name Role Phone Chinyere Murray DO Primary Care Provider [phone] Chinyere Murray DO Primary Care Provider [phone]- [phone] Elicia Powell MD Primary Care Provider [phone]- [phone] Elicia Powell MD Unavailable [phone] Encounter Details Date Type Department Care Team (Late st Contact Info) Description 2020 Procedure Pass [facility], [address] [id number] Social History Tobacco Use Types Packs/Day Years [...] high school, GED, job training, learning the Slovak language, technical skills, or developing parenting skills)? [...] on filedocumented in this encounter Care Teams Blindstitch Hemmer Relationship Specialty Start Date End Date Chinyere Murray DO [address] [place] [address] [email or web address] PCP - General Family Medicine 10/15/18 07/07/20 Chinyere Murray DO [address] [place] [phone] [email or web address] PCP - General Family Medicine 07/08/20 09/29/20 Elicia Powell MD [address] [place] [phone] [email or web address] PCP - General Family Medicine 09/30/20 Elicia Powell MD [address] [place] [address] [email or web address] Insurance Assigned Provider 12/03/20 02/02/23 documented as of this encounter Additional Source Comments The information contained in this document represents components of the legal health record. It is not the complete legal health record.[facility]
--- OUTSIDE RECORDS SUMMARY | 2025-03-12 15:12 | XMS_ITS | Encounter Summary ---
Author Organization [employer] Address [address] [facility] 7 [place] [address] Care Team Providers Care Splunk Dashboard Developer Name Role Phone Jordi Gallo DMD Unavailable Unavailable Jovanny Mcduffie MD Primary Care Prov ider Reason for Visit * Reason Onset Date Comments Prior Authorization 03/08/2025 Encounter Details Date Type Department Care Team ([facility] Contact Info) Description 03/08/2025 Telephone [facility] MEDICINE [address] [place] [address] Jovanny Mcduffie MD 505 [place] [address] Prior Authorization Social History Tobacco Use Types Packs/Day Years Used Date Smoking Tobacco: Every Day Cigarettes 0.5 39.3 Started: 12/06/1985 Passive Smoke Exposure: Current Smokeless [...] Telephone Encounter - Rashida Vidales LPN - 03/10/2025 2:05 PM EDT Please review message below. If you wish to complete an appeal # Opt 4 Tc from pt stating the PA for Zepbound was denied due to lack of information expressing medical necessity. Pt states the mounjaro makes her sick which is why she is requesting the zepbound. If any questions contact pt at [phone]. * Telephone Encounter - Yonny Jordan - 03/08/2025 8:58 AM EDT Tc from pt stating the PA for Zepbound was denied due to lack of information expressing medical necessity. Pt states the mounjaro makes her sick which is why she is requesting the zepbound. If any questions contact pt at [phone]. documented in this encounter Plan of Treatment Upcoming Encounters Date Type Department Care Team ([facility] st Contact Info) Description 03/23/2025 10:30 AM EDT Telemedicine [facility] MED & PEDS 505 [place] [address] Jovanny Mcduffie MD 505 [place], [place] [phone] 05/10/2025 12:45 PM EST Office Visit [facility] [address] [place] [phone] FredericjosefaBonnie [address] [place] [address] documented as of this encounter Visit Diagnoses Not on filedocumented in this encounter Care Teams Splunk Dashboard Developer Relationship Specialty Start Date End Date Jovanny Mcduffie MD [address] [place] [address] PCP - General Internal Medicine 12/09/23 Jordi Gallo DMD Dentist Dental Manager Of Software Development 01/02/23 documented as of this encounter
--- OUTSIDE RECORDS SUMMARY | 2025-03-12 15:12 | XMS_ITS | Encounter Summary ---
Author Organization [email or web address] Address [address] [place] [address] Care Team Providers Care Manufacturing Mechanic Name Role Phone Jordi Gallo DMD Unavailable Unavailable Elicia Powell MD Primary Care Provider [phone] Jovanny Mcduffie MD Primary Care Prov ider [...] 03/23/2025 10:30 AM EDT Telemedicine [facility] MED & PEDS 505 [place] [address] Jovanny Mcduffie MD 505 [place] [address] 05/10/2025 12:45 PM EST Office Visit [facility] [address] [place] [phone] Bonnie Naik [address] [place] [address] documented as of this encounter Visit Diagnoses Not on filedocumented in this encounter Care Teams Manufacturing Mechanic Relationship Specialty Start Date End Date Elicia Powell MD [address] [place] [address] [address] [place] [address] PCP - General Family Medicine 01/02/23 12/03/23 Jovanny Mcduffie MD [address] [place] [address] PCP - General Internal Medicine 12/09/23 Jordi Gallo DMD Dentist Dental Area Attendant 01/02/23 documented as of this encounter
--- OUTSIDE RECORDS SUMMARY | 2025-03-12 15:12 | XMS_ITS | Encounter Summary ---
Author Organization [employer] Address [address] [place] [address] Care Team Providers Care Blanket Cutter Hand Name Role Phone Jordi Gallo DMD Unavailable Unavailable Elicia Powell MD Primary Care Provider [phone] Jovanny Mcduffie MD Primary Care Prov ider [...] EDT Telemedicine [facility] MED & PEDS [address] [place] [address] Jovanny Mcduffie MD 505 [place] [address] 05/10/2025 12:45 PM EST Office Visit [facility] [address] [place] [phone] Bonnie Naik [address] [place] [address] documented as of this encounter Visit Diagnoses Not on filedocumented in this encounter Care Teams Blanket Cutter Hand Relationship Specialty Start Date End Date Elicia Powell MD [address] [place] [address] PCP - General Family Medicine 01/02/23 12/03/23 Jovanny Mcduffie MD [address] [place] [address] PCP - General Internal Medicine 12/09/23 Jordi Gallo DMD Dentist Dental Plant Security Guard 01/02/23 documented as of this encounter
--- OUTSIDE RECORDS SUMMARY | 2025-03-12 15:12 | XMS_ITS | Encounter Summary ---
Author Organization [employer] Address [address] [place] [address] Care Team Providers Care Bottom Saw Operator Name Role Phone Jordi Gallo DMD Unavailable Unavailable Elicia oPwell MD Primary Care Provider Jovanny Mcduffie MD [...] Description 03/23/2025 10:30 AM EDT Telemedicine [facility] MED & PEDS [address] [place] [address] Jovanny Mcduffie MD [address] [place] [address] 05/10/2025 12:45 PM EST Office Visit [facility] [address] [place] [phone] Bonnie Naik [address] [place] [address] documented as of this encounter Visit Diagnoses Not on filedocumented in this encounter Care Teams Bottom Saw Operator Relationship Specialty Start Date End Date Elicia Powell MD [address] [place] [address] [address] [place] [address] PCP - General Family Medicine 01/02/23 12/03/23 Jovanny Mcduffie MD [address] [place] [address] PCP - General Internal Medicine 12/09/23 Jordi Gallo DMD Dentist Dental Commercial Producer 01/02/23 documented as of this encounter
--- OUTSIDE RECORDS SUMMARY | 2025-03-12 15:12 | XMS_ITS | Encounter Summary ---
Author Organization [employer] Address [address] [place] [address] Care Team Providers Care Operator Coating Furnace Name Role Phone Jordi Gallo DMD Unavailable Unavailable Elicia Powell MD Primary Care Provider [phone] Jovanny Mcduffie MD Primary Care Prov ider [...] [facility] MED & PEDS [address] [place] [address] Jovanny Mcduffie MD 505 [place] [address] 05/10/2025 12:45 PM EST Office Visit [facility] [address] [place] [phone] Bonnie Naik [address] [place] [address] documented as of this encounter Visit Diagnoses Not on filedocumented in this encounter Care Teams Operator Coating Furnace Relationship Specialty Start Date End Date Elicia Powell MD [address] [place] [address] PCP - General Family Medicine 01/02/23 12/03/23 Jovanny Mcduffie MD [address] [place] [address] PCP - General Internal Medicine 12/09/23 Jordi Gallo DMD Dentist Dental Handicrafts Teacher 01/02/23 documented as of this encounter
--- OUTSIDE RECORDS SUMMARY | 2025-03-12 15:12 | XMS_ITS | Clinical Summary ---
Author Organization [employer] Address [address] [facility] 7[address] [place] [address] Care Team Providers Care Operating Systems Programmer Name Role Phone Jordi Gallo DMD Unavailable [...] (11/09/2024 10:25 AM EDT): Fam hx of [place], she has several risk factors, had a [...] follow up 6 months ago, in [facility] No er visit on the past [...] Encounters Date Type Department Care Team Description 03/08/2025 Telephone [facility] MED[facility] [address] [place] [address] Jovanny Mcduffie MD Prior Authorization 03/01/2025 Telephone [facility] [address] [place] [address] Jovanny Mcduffie MD Prior Authorization 02/11/2025 11:15 AM EDT Telemedicine [facility] MED & PEDS [address] [place] [address] Jovanny Mcduffie MD Type 2 diabetes mellitus with microalbuminuria ([facility]) (Primary Dx) 02/11/2025 Travel 02/10/2025 Telephone [facility] MED & PEDS [address] [place] [address] Jovanny Mcduffie MD chart prep 01/29/2025 Orders Only [facility] MED & PEDS [address] [place] [address] ProviderМария MD 01/27/2025 Travel 01/22/2025 Telephone [facility] [address] [place] [address] Jovanny Mcduffie MD Medication Question 01/05/2025 1:00 PM EDT Telemedicine [facility] MED & PEDS [address] [place] [address] Jovanny Mcduffie MD Type 2 diabetes mellitus with microalbuminuria (CMS/HCC) (Primary Dx); Primary hypertension 01/05/2025 Travel 01/01/2025 Refill [facility] MED & PEDS [address] [place] [address] Jovanny Mcduffie MD 12/15/2024 Refill [facility] MED & PEDS [address] [place] [address] Jovanny Mcduffie MD from Last 3 Months [...] Info) Description 03/23/2025 10:30 AM EDT Telemedicine [facility] MED & PEDS [address], [place] [phone] Jovanny Mcduffie MD [address] [place] [address] 05/10/2025 12:45 PM EST Office Visit [facility] DENTAL [address] [place] [phone] Bonnie Naik [address] [place] [address] Health Maintenance Due Date Last Done Comments [...] history exists Depression Screening 11/09/2025 11/09/2024, 11/10/19 25 Disability Screening 11/09/2025 11/09/2024 SDOH Screening 11/09/2025 [...] AM EDT) 01/05/2025 8:07 AM EDT Narrative [facility] - 01/07/2025 3:12 PM EDT [address] [address] Nuclear Medicine Report Signed Patient: Ana Armijo MR#: [id number] 9 : 1975 Acct:[id number] Age/Sex: 49 / F ADM Date: 01/05/25 Loc: [facility] Attending Dr: Jovanny Worthy MD Ordering Physician: Jovanny Mcduffie MD Date of Service: 01/05/25 Procedure(s): NM cardiolite stress test Accession Number(s): [id number] cc: Jovanny Mcduffie MD EXERCISE MYOCARDIAL PERFUSION [...] 01/07/25 1509 DD/ 0807 TD/TT: 01/07/25 0815 Rim Fire Charger Operator: Procedure Note Donotuseinterpreter, Image - 01/07/[address] [address] Nuclear Medicine Report Signed Patient: Keena Armijo#: [id number] 9 : 1975Acct:[id number] Age/Sex: 49 / FADM Date: 01/05/25 Loc: [facility] Attending Dr: Jovanny Worthy MD Ordering Physician: Jovanny Mcduffie MD Date of Service: 01/05/25 Procedure(s): NM cardiolite stress test Accession Number(s): [id number] cc: Jovanny Mcduffie MD EXERCISE MYOCARDIAL PERFUSION [...] 01/07/25 1509 DD/ 0807 TD/TT: 01/07/25 0815 Rim Fire Charger Operator: Jovanny Worthy MD CV STRESS PROCEDUR ES Final Result [facility] [address] [place] [phone] * (ABNORMAL) POCT HGB A1C (11/30/2024 2:24 PM EDT) Hemoglobin A1C 7.2(A) 4.0 - 5.7 % Blood 11/30/2024 2:24 PM EDT Jovanny Worthy MD POINT OF CARE TEST ENTER/EDIT ORDERABLES Final Result * (ABNORMAL) Lipid Panel, Standard (07/27/2024 2:30 PM EST) Triglycerides 170(H) <150 mg/dL [facility] Comment:Desirable Triglyceri de: less than 150 mg/dLBorderline High Triglyceride 150-199 mg/dLHigh Triglyceride: 200-499 mg/dLVery High Triglyceride: greater than or equal to 5OO mg/dL Cholesterol 123 <200 mg/dL [facility] Comment:Desirable Cholestero l: less than 200 mg/dLBorderline High Cholesterol: 200-239 mg/dLHigh Cholesterol: greater than 239 mg/dL LDL Cholesterol Calculated 65 <100 mg/dL [facility] Comment:Desirable LDL: less than 100 mg/dLNear Optimal/Above Optimal LDL: 110- 129 mg/dLBorderline High LDL: 130-159 mg/dLHigh LDL: 160-189 mg/dLVery High LDL: greater than or equal to 190 mg/dL HDL Cholesterol 24(L) >40 mg/dL [facility] Comment:Desirable HDL: great er than 40 mg/dL Note: This HDL assay may give artificially low results in patients with liver disease. Blood Venous blood specimen / Unknown 07/27/2024 2:30 PM EST 07/27/2024 5:45 PM EST us Jovanny Worthy MD LAB BLOOD ORDERABL ES Final Result [facility] [address] [place] [phone] * Pap Smear (04/07/2024 11:20 AM EST) Swab Cervix uteri structure / Unknown 04/07/2024 11:20 AM EST 04/08/2024 11:00 AM EST Narrative [facility] - 05/01/2024 11:20 AM EST ----- ------- Name: Ana Armijo Age/Sex: 49/F : 1975 Unit#: [id number] Attend Dr: Jailene Ding MD Re04/07/24 Status: DEP REF Location: HO.HHCLNP Disch: ----- ------- SPEC : [id number] RECD: 04/08/24 STATUS: MONA CORONEL NUM: [id number] CONNOR: 04/07/[address] [facility] [address]: Jailene Ding MD ENTERED: [...] 1016 (signature on file) Demond Hylton MD 05/01/241119 ----- ------- END OF REPORT Jailene Ding MD LAB CYTOLOGY ORDERABLES Final Result Performing Organization Address [facility] Co de Phone Number [facility] [address] [place] [phone] * HPV mRNA E6/E7 w/Reflex to HPV Genotypes 16, 18/45 (04/07/2024 12:00 AM EST) Мария Crawford MD LAB CYTOLOGY ORDERABLES F inal Result Performing Organization Address [facility] Co de Phone Number [facility] [address] [place] [phone] * Hepatitis C Antibody with Reflex to HCV, RNA, Quantitative, Real-Time PCR (01/09/2024 8:21 AM EDT) Hepatitis C Antibody Nonreactive Nonreactive [facility] Comment:Antibodies to HCV no t detected; does not exclude early acuteHCV infection. Blood Venous blood specimen / Unknown 01/09/2024 8:21 AM EDT 01/09/2024 2:04 PM EDT Jovanny Worthy MD LAB BLOOD ORDERABL ES Final Result Performing Organization Address [facility] de Phone Number [facility] [address] [place] [address] [phone] * HIV-1/2 Antigen and Antibodies, Fourth Generation, with Reflexes (01/09/2024 8:21 AM EDT) HIV AB/AG Nonreactive Nonreactive [facility] Comment:HIV-1 p24 Ag and/or HIV-1/HIV-2 Ab not detected.A test result that is nonreactive does not exclude thepossibility of exposure to or infection with HIV-1 and/orHIV-2. Nonreactive results in this assay for individualswith prior exposure to HIV-1 and/or HIV-2 may be due toantigen and antibody levels that are below the limit ofdetection of this assay.The [employer] HIV Ag/Ab Combo assay result andsupplemental assay results should be interpreted inconjunction with the patient's clinical presentation,history and other laboratory results. If the results areinconsistent with clinical evidence, additional testing issuggested to confirm the result. Blood Venous blood specimen / Unknown 01/09/2024 8:21 AM EDT 01/09/2024 2:04 PM EDT us Jovanny Worthy MD LAB BLOOD ORDERABL ES Final Result [facility] [address] [place] [phone] * BI Mammogram Screening Tomosynthesis Bilateral (01/01/2024 1:45 PM EDT) Anatomical Region Laterality Modality Breast Bilateral Mammography 01/01/2024 1:45 PM EDT Narrative 01/28/2024 7:48 AM EDT [address] [place] [address] Mammography Report Signed Patient: Ana Armijo MR#: [id number] 9 : 1975 Acct:[id number] Age/Sex: 48 / F ADM Date: 01/01/24 Loc: HO.MAMMO Attending Dr: Jovanny Worthy MD Ordering Physician: Jovanny Mcduffie MD Res ults: 2Benign Findings Date of Service: 01/01/24 Follow Up: 1 Year From Orig inal Mammogram Procedure(s): MM tomosynthesis screening BI Accession Number(s): [id number] cc: Jovanny Mcduffie MD EXAMINATION: MM SCREENING [...] Kayla Bales MD 01/28/2024 07:45 AM EDT RP Dictated By: Kayla Bales MD Signed By: <Electronically signed by Kayla Bales MD in OV> 01/28/24 0745 DD/ 1345 TD/TT: 01/01/24 1400 Rim Fire Charger Operator: Procedure Note Donotuseinterpreter, Image - 01/28/2024 [facility] [address] [place] [address] Mammography Report Signed Patient: Keena Armijo#: [id number] 9 : 1975Acct:[id number] Age/Sex: 48 / FADM Date: 01/01/24 Loc: [facility] Attending Dr: Jovanny Worthy MD Ordering Physician: Jovanny Mcduffie ults: 2Benign Findings Date of Service: 01/01/24Follow Up: 1 Year From Orig inal Mammogram Procedure(s): MM tomosynthesis screening BI Accession Number(s): [id number] cc: Jovanny Mcduffie MD EXAMINATION: MM SCREENING [...] MD 01/28/2024 07:45 AM EDT Dictated By: Kyala Bales MD Signed By: <Electronically signed by Kayla Bales MD in OV> 01/28/24 0745 DD/ 1345 TD/TT: 01/01/24 1400 Rim Fire Charger Operator: Jovanny Worthy MD IMG BI PROCEDURES Final Result * Cologuard?? colon cancer screening (12/20/2023 9:40 AM EDT) Cologuard Result Negative Negative 12/28/19 3:48 AM EDT [facility] (CLIA #:[id number]) Comment: NEGATIVE TEST RESULT. A negative Cologuard [...] (Pavan Pacheco al, N Engl J Med 2014;370(14):6341-6574) The normal value (reference range) for this assay is negative. COLOGUARD RE-SCREENING RECOMMENDATION: Periodic colorectal cancer screening is an important part of preventive healthcare for asymptomatic individuals at average risk for colorectal cancer. Following a negative Cologuard result, the [place] Cancer Society and U.S. Multi-Society Task Force screening guidelines recommend a Cologuard re-screening interval of 3 years. References: [place] Cancer Society Guideline for Colorectal Cancer Screening: https://www.cancer.org/cancer/adgpw-dymbzm-jxiivs/xxvrhoxfx-lbxzswvja-tdluydi/ac s-rec ommendations.html.; Jase DK, Sridhar PARADA, Tom MaradaigaK, Colorectal Cancer Screening: Recommendations for Physicians and Patients from the U.S. Multi-Society Task Force on Colorectal Cancer Screening , Am J Gastroenterology 2017; 112:8914-1560. TEST DESCRIPTION: Composite algorithmic analysis of stool [...] (Pavan Pacheco al, N Engl J Med 2014;370(14):9111-8308.) Cologuard may produce a false negative or false positive result (no colorectal cancer or precancerous polyp present at colonoscopy follow up). A negative Cologuard test result does not guarantee the absence of CRC or advanced adenoma (pre-cancer). The current Cologuard screening interval is every 3 years. ([place] Cancer Society and U.S. Multi-Society Task Force). Cologuard performance data in a 10,000 patient pivotal study using colonoscopy as the reference method can be accessed at the following location: www.ApolloMed/results. Additional description of the Cologuard test process, warnings and precautions can be found at www.cologPassadord.com. Stool specimen (specimen) 12/20/2023 9:40 AM EDT 12/23/2023 11:04 AM EDT Jovanny Worthy MD LAB MOLECULAR DIAG NOSTICS ORDERABLES Final Result [facility] (CLIA #:[id number]) [address] [place] [address], from Last 3 Months or Most Recently Relevant to Health Maintenance [facility] MED[facility]ID STAND ADULT DENTAL - HSN FULL (MEDICAID) Care Teams Operating Systems Programmer Relationship Specialty Start Date End Date Jovanny Mcduffie MD [address] [place] [phone] PCP - General Internal Medicine 12/09/23 Jordi Gallo DMD Dentist Dental User Interface Engineer 01/02/23
--- OUTSIDE RECORDS SUMMARY | 2025-03-12 15:12 | XMS_ITS | Encounter Summary ---
Author Organization [facility] Address Count includes the [facility] [employer] [address] [address] Phone Care Team Providers Care Cobol Application Developer Name Role Phone Elicia Powell MD Primary Care Provider + [phone] Reason for Visit * Reason Comments Medication Refill Encounter Details Date Type Department Care Team ([facility] st Contact Info) Description 06/13/2023 Refill [facility] Podiatry [address] [place] [address] Chelsy Hartmann DPM [address] [facility] [address] [place] [address] [email or web address] Medication Refill Social [...] Start Date 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 Not on file Not on file Not on file documented as of this encounter Plan of Treatment Not on file documented as of this encounter Visit Diagnoses Diagnosis Poorly controlled type 2 diabetes mellitus with neuropathy documented in this encounter Additional Health Concerns Assessment Noted Time PHQ-2 Depression Total Score: 0 02/08/20 23 12:56 PM EDT documented as of this encounter Care Teams Cobol Application Developer Relationship Specialty Start Date End Date Elicia Powell MD [address] [place] [address] [email or web address] PCP - General Family Medicine 09/30/20 documented as of this encounter Additional Source Comments The information contained in this document represents components of the legal health record. It is not the complete legal health record.[facility]
--- OUTSIDE RECORDS SUMMARY | 2025-03-12 15:12 | XMS_ITS | Encounter Summary ---
Author Organization [facility] Address [address] [place] [address] Phone Care Team Providers Care Soft Work Wrapper Layer And Examiner Name Role Phone Chinyere Murray DO Primary Care Provider [phone] Chinyere Murray DO Primary Care Provider + [phone] Elicia Powell MD Primary Care Provider Elicia Powell MD Unavailable +[phone] Encounter Details Date Type Department Care Team (Late st Contact Info) Description 02/16/2020 Ancillary Orders [facility] [place] [address] [place] [address] Chinyere Murray, DO [address] [place] [address] [email or web address] Abnormal mammogram Social History Tobacco Use [...] high school, GED, job training, learning the [place] language, technical skills, or developing parenting skills)? [...] unspecified documented in this encounter Care Teams Soft Work Wrapper Layer And Examiner Relationship Specialty Start Date End Date Chinyere Murray DO [address] [place] [address] [email or web address] PCP - General Family Medicine 10/15/18 07/07/20 Chinyere Murray DO [address] [place] [address] [email or web address] PCP - General Family Medicine 07/08/20 09/29/20 Elicia Powell MD [address] [place] [phone] [email or web address] PCP - General Family Medicine 09/30/20 Elicia Powell MD [address] [place] [phone] [email or web address] Insurance Assigned Provider 12/03/20 02/02/23 documented as of this encounter Additional Source Comments The information contained in this document represents components of the legal health record. It is not the complete legal health record.[facility]
--- OUTSIDE RECORDS SUMMARY | 2025-03-12 15:13 | XMS_ITS | Encounter Summary ---
Author Organization [employer] Address [address] [place] [address] 7 [place] [address] Care Team Providers Care Him Analyst Name Role Phone Jordi Gallo DMD Unavailable Unavailable Jovanny Mcduffie MD Primary Care Prov ider Reason for Visit * Reason Onset Date Comments Results 07/31/2024 Encounter Details Date Type Department Care Team ([facility] st Contact Info) Description 07/31/2024 Telephone [facility] CHC MED & PEDS [address] [place] [address] Jovanny Mcduffie MD [address] [place] [address] Results Social History Tobacco Use Types Packs/Day Years Used Date Smoking Tobacco: Every Day Cigarettes 0.5 39.3 Started: 12/06/1985 Smokeless Tobacco: Never Alcohol Use [...] and urine Date when done: 07/27/24 Facility: [facility] documented in this encounter Plan of Treatment Upcoming Encounters Date Type Department Care Team (Late st Contact Info) Description 03/23/2025 10:30 AM EDT Telemedicine [facility] MED & PEDS [address] [place] [address] Jovanny Mcduffie MD [address] [place] [address] 05/10/2025 12:45 PM EST Office Visit [facility] DENTAL [address] [place] [phone] Bonnie Naik [address] [place] [address] documented as of this encounter Visit Diagnoses Not on filedocumented in this encounter Care Teams Him Analyst Relationship Specialty Start Date End Date Jovanny Mcduffie MD [address] [place] [phone] PCP - General Internal Medicine 12/09/23 Jordi Gallo DMD Dentist Dental Inspector Government Property 01/02/23 documented as of this encounter
--- OUTSIDE RECORDS SUMMARY | 2025-03-12 15:13 | XMS_ITS | Encounter Summary ---
Author Organization [employer] Address [address] [facility] 7 [place] [address] Care Team Providers Care Print Developer Name Role Phone Jordi Gallo DMD Unavailable Unavailable Jovanny Mcduffie MD Primary Care Prov ider Reason for Visit * Reason Onset Date Comments Medication Question 07/10/2024 Encounter Details Date Type Department Care Team ([facility] st Contact Info) Description 07/10/2024 Telephone [facility] MEDICINE [address] [place] [address] Jovanny Mcduffie MD [address] [place], [place] [phone] Medication Question Social History Tobacco Use Types [...] need blood work regarding zepbound and diabetes. [phone] documented in this encounter Plan of Treatment Upcoming Encounters Date Type Department Care Team (Late st Contact Info) Description 03/23/2025 10:30 AM EDT Telemedicine [facility] MED & PEDS [address] [place] [address] Jovanny Mcduffie MD [address] [place] [address] 05/10/2025 12:45 PM EST Office Visit [facility] DENTAL [address] [place] [phone] Bonnie Naik [address] [place] [address] documented as of this encounter Visit Diagnoses Not on filedocumented in this encounter Care Teams Print Developer Relationship Specialty Start Date End Date Jovanny Mcduffie MD [address] [place] [address] PCP - General Internal Medicine 12/09/23 Jordi Gallo, KHALIF Dentist Dental Assistant Women'S Soccer Coach 01/02/23 documented as of this encounter
--- OUTSIDE RECORDS SUMMARY | 2025-03-12 15:13 | XMS_ITS | Encounter Summary ---
Author Organization [employer] Address [address] [facility] [address] [place] [address] Care Team Providers Care Cylinder Checker Name Role Phone Jordi Gallo DMD Unavailable Unavailable Jovanny Mcduffie MD Primary Care Prov ider Encounter Details Date Type Department Care Team (Late st Contact Info) Description 12/08/2024 Orders Only [facility] CHC MED & PEDS [address] [place], [place] [phone] Jovanny Mcduffie MD [address] [place] [address] Social History Tobacco Use Types Packs/Day Years [...] Info) Description 03/23/2025 10:30 AM EDT Telemedicine [facility] MED & PEDS [address] [place] [address] Jovanny Mcduffie MD [address] [place] [address] 05/10/2025 12:45 PM EST Office Visit [facility] GR DENTAL [address] [place] [phone] Bonnie Naik [address] [place] [address] documented as of this encounter Visit Diagnoses Not on filedocumented in this encounter Care Teams Cylinder Checker Relationship Specialty Start Date End Date Jovanny Mcduffie MD [address] [place] [address] PCP - General Internal Medicine 12/09/23 Jordi Gallo DMD Dentist Dental Software Engineer 01/02/23 documented as of this encounter
--- OUTSIDE RECORDS SUMMARY | 2025-03-12 15:13 | XMS_ITS | Clinical Summary ---
Author Organization [facility] Address [facility] [address] [address] Phone Care Team Providers Care Boom Master Name Role Phone Elicia Powell MD Primary Care Provider [phone] Allergies No known active allergies Medications clindamycin [...] exams. She declines a referral to a gis developer. USPSTF A&B recommendations reviewed with pt. BP: [...] next year: long h/o infertility. has seen COMMERCIAL REAL ESTATE ATTORNEY, but is likely perimenopausal with irregular periods [...] can consider at older ages: Referred to [facility] Assessment & Plan (06/07/2021 2:12 PM [...] has the structure in place for her [id number], there is no reason they cannot simply [...] next year: Planning or actively trying: seeing COMMERCIAL REAL ESTATE ATTORNEY for infertility although she is aware the odds are against her at this age Depression screen: Negative IPV screen in women of reproductive age (or others PRN): Negative Smoking cessation counseling: discussed, interested in quitting, does have Nicotrol, wants to start this up again soon Alcohol use counseling: N/A LTBI screening in people at increased risk: will do, 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 I do not know for sure. [...] end organ damage from poorly controlled diabetes: SC, CVA, CKD, blindness, vulnerability to infection. The Jardiance has led to modest weight loss but is not sufficient for glucose control. There is much room for improvement in diet: MUCH less candy, no soda, no sugar in coffee, more fruits/veg, no more chips... Ana does not feel it would be helpful to see a gis developer because she has done so several times [...] at 8 PM. Patient may substitute a Cameroonian yogurt or cottage cheese for either of [...] Department Care Team Description 01/04/2025 Patient Outreach [facility] Primary Care 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 Not on file Not on file Not [...] 09/16/2020, 08/24/2020 PAP SMEAR 02/07/2025 2020, 2020 RSV VACCINE (1 - Risk 50-74 years 1-dose series) 2025 ZOSTER VACCINES (1 of 2) 2025 Adult [...] controlled type 2 diabetes mellitus with neuropathy HM DIABETES EYE EXAM FOR RESULT ENTRY ONLY [...] Hemoglobin A1c 6.1(A) 4.2 - 5.8 % [facility] Other 07/03/2023 10:5 3 AM EST us Elicia Powell MD POINT OF CARE TEST ORDERABLE S Final Result Performing Organization Address City/State/[facility] Co de Phone Number [facility] [address] * Basic metabolic panel (02/07/2023 2:05 PM EDT) SODIUM 136 133 - 146 mmol/L [facility] CHLORIDE 100 96 - 108 mmol/L [facility] POTASSIUM 4.5 3.3 - 5.1 mmol/L [facility] CO2 27 21 - 35 mmol/L [facility] BUN 16 6 - 19 mg/dL [facility] CREATININE 0.70 0.5 - 1.5 mg/dL [facility] GLUCOSE 99 70 - 99 mg/dL [facility] CALCIUM 9.5 8.4 - 10.3 mg/dL [facility] EGFR 107 >59 mL/min/1.7 3m2 [facility] Comment:Estimated glomerular filtration rate calculated using the CKD-EPI refit equation. ANION GAP 14 10 - 20 mmol/L [facility] Blood 02/07/2023 2:05 PM EDT 02/07/2023 2:17 PM EDT Elicia Powell MD LAB BLOOD ORDERABLES Final R esult [facility] [address] [place] [address] * DIABETES EYE EXAM FOR RESULT ENTRY [...] PM EDT) HCV NON-REACTIV E NON-REACTI VE [facility] Blood 12/08/2020 12:2 4 PM EDT 12/08/2020 12:28 PM EDT us Chinyere Murray DO LAB BLOOD ORDERABLES Final Result [address] [address] * Pap Smear (2020 12:00 AM EDT) 2020 02/09/2020 8:2 7 AM EDT Narrative SEE NARRATIVE - 02/15/2020 10:15 AM EDT [address] [address] History Instructor: Lorrie Harris MD [employer]STATE ATTORNEY Cytology Report FINAL DIAGNOSIS A. PAP SMEAR [...] 52, 56, 58, 59, 66, 68) by [employer] HR-HPV analysis. Clinical correlation is advised. This HPV test was performed at [facility], [address] [place] [address]. This test has been FDA approved for [facility] cervical cytology specimens. The accuracy and precision of this test for all other specimen sources has been verified in the Cytopathology Laboratory of the [facility] and has not been cleared or approved by the U.S. Food and Drug Administration. Clinical correlation is advised. CLINICAL HISTORY Date of Last Menstrual Period: Not Provided Menstrual History: Sadie-Menopausal Other Clinical Conditions: Screening Pap SPECIMEN SOURCE A: PAP SMEAR (SUREPATH) CE Patient Name: ANA ARMIJO : 1975 (Age: 45) Sex: F Institution: [facility] Location: [facility] Date of Collection: 2020 Date of Reported: 02/15/2020 10:15 Results to: Chinyere Murray DO Chinyere Murray DO CYTOLOGY ORDERABLES Final Result SEE NARRATIVE from Last 3 Months or Most Recently Relevant to Health Maintenance Insurance C3 ACO C3 ACO C3 ACO C3 ACO C3 ACO Care Teams Boom Master Relationship Specialty Start Date End Date Elicia Powell MD [address] [place] [phone] [email or web address] PCP - General Family Medicine 09/30/20 Additional Source Comments The information contained in this document represents components of the legal health record. It is not the complete legal health record.[facility]
--- OUTSIDE RECORDS SUMMARY | 2025-03-12 15:13 | XMS_ITS | Encounter Summary ---
Author Organization [employer] Address [address] [facility] [place] [address] Care Team Providers Care Motor Equipment Commanding Officer Name Role Phone Jordi Gallo DMD Unavailable Unavailable Jovanny Mcduffie MD Primary Care Prov ider Encounter Details Date Type Department Care Team (Late st Contact Info) Description 01/29/2025 Orders Only [facility] [address] [place], [place] [phone] Provider, MD Мария Social History Tobacco Use [...] 03/23/2025 10:30 AM EDT Telemedicine [facility] MED & PEDS [address] [place] [address] Jovanny Mcduffie MD [address] [place] [address] 05/10/2025 12:45 PM EST Office Visit [facility] [address] [place] [phone] Bonnie Naik [address] [place] [address] documented as of this encounter Procedures Procedure Name Priority Date/Time Associated Diagnosis Comments DIABETES EYE EXAM Routine 01/28/2025 10:43 AM EDT documented in this encounter Results * Hm Diabetes Eye Exam (01/28/2025 10:43 AM EDT) Historical Provider HEALTH MAINTENANCE Final Result documented in this encounter Visit Diagnoses Not on filedocumented in this encounter Care Teams Motor Equipment Commanding Officer Relationship Specialty Start Date End Date Jovanny Mcduffie MD [address] [place] [address] PCP - General Internal Medicine 12/09/23 Jordi Gallo DMD Dentist Dental Enrichment Assistant 01/02/23 documented as of this encounter
--- OUTSIDE RECORDS SUMMARY | 2025-03-12 15:13 | XMS_ITS | Encounter Summary ---
Author Organization [employer] Address [address] [facility] 7 [place] [address] Care Team Providers Care Regulatory Affairs Manager Name Role Phone Jordi Gallo DMD Unavailable Unavailable Jovanny Mcduffie MD Primary Care Prov ider Reason for Visit * Reason Onset Date Comments Medication Question 07/17/2024 Encounter Details Date Type Department Care Team ([facility] st Contact Info) Description 07/17/[address] [facility] MED[facility] [address] [place] [address] Jovanny Mcduffie MD [address] [place], [place] [phone] Medication Question Social History Tobacco Use Types [...] on the Same one. Contact pt at [phone] documented in this encounter Plan of Treatment Upcoming Encounters Date Type Department Care Team (Late st Contact Info) Description 03/23/2025 10:30 AM EDT Telemedicine [facility] MED [facility] PED[facility] [address] [place] [address] Jovanny Mcduffie MD [address] [place] [address] 05/10/2025 12:45 PM EST Office Visit [facility] [address] [place] [phone] Bonnie Naik [address] [place] [address] documented as of this encounter Visit Diagnoses Not on filedocumented in this encounter Care Teams Regulatory Affairs Manager Relationship Specialty Start Date End Date Jovanny Mcduffie MD [address] [place] [address] PCP - General Internal Medicine 12/09/23 Jordi Gallo DMD Dentist Dental Staff Development Coordinator Rn 01/02/23 documented as of this encounter
--- OUTSIDE RECORDS SUMMARY | 2025-03-12 15:13 | XMS_ITS | Encounter Summary ---
Author Organization [employer] Address [address] [facility] 7 [place] [address] Care Team Providers Care Overlock Collar Setter Name Role Phone Jordi Gallo DMD Unavailable Unavailable Jovanny Mcduffie MD Primary Care Prov ider Encounter Details Date Type Department Care Team (Late st Contact Info) Description 07/31/2024 Orders Only [facility] MED [facility] PEDS [address] [place], [place] [phone] Jovanny Mcduffie MD [address] [place] [address] Dietary counseling; Exercise counseling Social History Tobacco [...] Info) Description 03/23/2025 10:30 AM EDT Telemedicine [facility] MED & PED[facility] [address] [place] [address] Jovanny Mcduffie MD [address] [place] [address] 05/10/2025 12:45 PM EST Office Visit [facility] [address] [place] [phone] Bonnie Naik [address] [place] [address] documented as of this encounter Visit Diagnoses Diagnosis Dietary counseling Dietary surveillance and counseling Exercise counseling documented in this encounter Care Teams Overlock Collar Setter Relationship Specialty Start Date End Date Jovanny Mcduffie MD [address] [place] [address] PCP - General Internal Medicine 12/09/23 Jordi Gallo DMD Dentist Dental Digital Marketing Project Manager 01/02/23 documented as of this encounter
--- OUTSIDE RECORDS SUMMARY | 2025-03-12 15:13 | XMS_ITS | Encounter Summary ---
Author Organization [employer] Address [address] [facility] [address] [place] [address] Care Team Providers Care Fluid Jet Cutter Operator Name Role Phone Jordi Gallo DMD Unavailable Unavailable Jovanny Mcduffie MD Primary Care Prov ider Encounter Details Date Type Department Care Team (Late st Contact Info) Description 09/22/2024 Orders Only [facility] [address] [place], [place] [phone] Calli Garcia Social History Tobacco Use Types [...] Info) Description 03/23/2025 10:30 AM EDT Telemedicine [facility] MED & PEDS [address] [place] [address] Jovanny Mcduffie MD [address] [place] [address] 05/10/2025 12:45 PM EST Office Visit [facility] [address] [place] [address] Bonnie Naik [address] [place] [address] documented as of this encounter Procedures Procedure Name Priority Date/Time Associated Diagnosis Comments HPV MRNA E6/E7 REFLEX TO HPV 16, 18/45 Routine 04/07/2024 12:00 AM EST documented in this encounter Results * HPV mRNA E6/E7 w/Reflex to HPV Genotypes 16, 18/45 (04/07/2024 12:00 AM EST) us Historical Provider LAB CYTOLOGY ORDERABLES F inal Result [facility] [address] [place] [address] [phone] documented in this encounter Visit Diagnoses Not on filedocumented in this encounter Care Teams Fluid Jet Cutter Operator Relationship Specialty Start Date End Date Jovanny Mcduffie MD [address] [place] [address] PCP - General Internal Medicine 12/09/23 Jordi Gallo DMD Dentist Dental Hot Dip Plater 01/02/23 documented as of this encounter
--- OUTSIDE RECORDS SUMMARY | 2025-03-12 15:13 | XMS_ITS | Encounter Summary ---
Author Organization [facility] Address [facility] [employer] [facility] [address] [place] [phone] Phone Care Team Providers Care Membership Sales Advisor Name Role Phone Elicia Powell MD Primary Care Provider [phone] Elicia Powell MD Unavailable [phone] Encounter Details Date Type Department Care Team (Late st Contact Info) Description 12/08/2020 Procedure Pass [facility], [address] [address] Social History Tobacco Use Types Packs/Day Years [...] high school, GED, job training, learning the Niuean language, technical skills, or developing parenting skills)? [...] documented as of this encounter Care Teams Membership Sales Advisor Relationship Specialty Start Date End Date Elicia Powell MD [address] [place] [address] [address] [place] [address] PCP - General Family Medicine 09/30/20 Elicia Powell MD [address] [place] [address] Pradeep. [address] [place] [address] Insurance Assigned Provider 12/03/20 documented as of this encounter Additional Source Comments The information contained in this document represents components of the legal health record. It is not the complete legal health record.[facility]
--- OUTSIDE RECORDS SUMMARY | 2025-03-12 15:13 | XMS_ITS | Encounter Summary ---
Author Organization [facility] Address [facility] [employer] [address] [address] Phone Care Team Providers Care Diabetes Territory Manager Name Role Phone Chinyere Murray DO Primary Care Provider [phone] Chinyere Murray DO Primary Care Provider [phone] Elicia Powell MD Primary Care Provider [phone] Elicia Powell MD Unavailable [phone] Encounter Details Date Type Department Care Team (Late st Contact Info) Description 07/07/2020 Procedure Pass [facility], [address] [phone] Social History Tobacco Use Types Packs/Day Years [...] high school, GED, job training, learning the Bengali language, technical skills, or developing parenting skills)? [...] on filedocumented in this encounter Care Teams Diabetes Territory Manager Relationship Specialty Start Date End Date Chinyere Murray DO [address] [place] [address] [email or web address] PCP - General Family Medicine 10/15/18 07/07/20 Chinyere Murray DO [address] [place] [phone] [email or web address] PCP - General Family Medicine 07/08/20 09/29/20 Elicia Powell MD [address] [place] [phone] [email or web address] PCP - General Family Medicine 09/30/20 Elicia Powell MD [address] [place] [phone] [email or web address] Insurance Assigned Provider 12/03/20 02/02/23 documented as of this encounter Additional Source Comments The information contained in this document represents components of the legal health record. It is not the complete legal health record.[facility]
--- OUTSIDE RECORDS SUMMARY | 2025-03-12 15:13 | XMS_ITS | Encounter Summary ---
Author Organization [employer] Address [address] [place] [address] Care Team Providers Care Gis Manager Name Role Phone Jordi Gallo DMD Unavailable Unavailable Jovanny Mcduffie MD Primary Care Prov ider Reason for Visit * Reason Onset Date Comments Nurse Triage 12/20/2023 Med Refill 12/20/2023 Encounter Details Date Type Department Care Team ([facility] st Contact Info) Description 12/20/2023 Telephone [facility] MED[facility] [address] [place] [address] Jovanny Mcduffie MD [address] [place], [place] [phone] Nurse Triage; Med Refill Social History Tobacco [...] Info) Description 03/23/2025 10:30 AM EDT Telemedicine [facility] MED [facility] PED[facility] [address] [place] [address] Jovanny Mcduffie MD [address] [place] [address] 05/10/2025 12:45 PM EST Office Visit [facility] [address] [place] [phone] Bonnie Naik [address] [place] [address] documented as of this encounter Visit Diagnoses Not on filedocumented in this encounter Care Teams Gis Manager Relationship Specialty Start Date End Date Jovanny Mcduffie MD [address] [place] [phone] PCP - General Internal Medicine 12/09/23 Jordi Gallo DMD Dentist Dental Carburizer 01/02/23 documented as of this encounter
== END 2025-03-12 13:37 | disposition home or self-care (01) ==
LOC: HO.HOS 12:53
PROVIDERS: Visit Provider Physician Assistant
DX: M17.0 Bilateral primary osteoarthritis of knee (principal)
CPT/HCPCS: 20610

== ENCOUNTER → 2025-03-12 12:53 | Outpatient (BNVA) | payer MEDICAID, SELFPAY | PROVIDERS: Visit Provider Physician Assistant | DX: M17.0 Bilateral primary osteoarthritis of knee (principal) | CPT/HCPCS: 20610; J7323 ==